=== PATIENT | female | born 1960 | race Caucasian/White ===

== ENCOUNTER 2018-02-06 04:07 | Outpatient (CLI) | payer BC, SELFPAY ==
[2018-02-06 12:02] LABS: Abs Immature Grans 0.01 k/cumm (0.0-0.09); Absolute Basophil Count 0.02 k/cumm (0.0-0.2); Absolute Eosinophil Count 0.35 k/cumm (0.0-0.7); Absolute Lymphocyte Count 1.41 k/cumm (1.2-3.4); Absolute Monocyte Count 0.47 k/cumm (0.11-0.7); Absolute Neutrophil Count 2.25 k/cumm (1.2-6.7); Basophils % 0.4; Eosinophils % 7.8; HCT 36.1 % (36.0-46.0); HGB 12.6 g/dL (12.0-15.5); Immature Grans % 0.2; Lymphocytes % 31.3; Mean Corp. HGB Concentration 34.9 g/dL (32.0-36.0); Mean Corpuscular Hemoglobin 31.9 pg (27.0-33.0); Mean Corpuscular Volume 91.4 fL (80-95); Mean Platelet Volume 8.8 fL (8.0-11.0); Monocytes % 10.4; Neutrophils % 49.9; Platelet Count 271 x1000/uL (130-400); RBC 3.95 m/cumm (4.00-5.20); RBC Distribution Width 11.9 % (11.7-14.6); White Blood Cell Count 4.51 k/cumm (4.4-10.8)
[2018-02-06 12:13] LABS: ALT 36 U/L (12-78); AST 33 U/L (15-37); Albumin 3.8 g/dL (3.4-5.0); Alkaline Phosphatase 56 U/L (46-116); Anion Gap 7.9 mmol/L (3-11); BUN 11 mg/dL (7-18); Bilirubin, Total 0.4 mg/dL (0.2-1.0); CO2 28.1 mmol/L (21.0-32.0); CREATININE 0.57 mg/dL (0.55-1.02); Calcium 8.6 mg/dL (8.5-10.1); Chloride 96 mmol/L (98-107); Glucose 92 mg/dL (70-100); Potassium 4.2 mmol/L (3.5-5.1); Sodium 132 mmol/L (136-145); Total Protein 7.5 g/dL (6.4-8.2)
[2018-02-08 10:54] LABS: Cancer Ag 15-3 97 U/mL (<30)
== END 2018-02-06 04:08 ==
PROVIDERS: PCP Internal Medicine; Visit Provider Internal Medicine Medical Oncology
DX: C50.412 Malignant neoplasm of upper-outer quadrant of left female breast (principal); Z17.0 Estrogen receptor positive status [ER+]
CPT/HCPCS: 36415; 80053; 86304; 85025; 86300

== ENCOUNTER 2018-03-06 09:42 | Outpatient (CLI) | payer BC, SELFPAY ==
[2018-03-06 10:08] LABS: Abs Immature Grans 0.01 k/cumm (0.0-0.09); Absolute Basophil Count 0.03 k/cumm (0.0-0.2); Absolute Eosinophil Count 0.17 k/cumm (0.0-0.7); Absolute Lymphocyte Count 1.38 k/cumm (1.2-3.4); Absolute Neutrophil Count 3.87 k/cumm (1.2-6.7); Basophils % 0.5; Eosinophils % 2.8; HCT 35.6 % (36.0-46.0); HGB 12.2 g/dL (12.0-15.5); Immature Grans % 0.2; Lymphocytes % 22.8; Mean Corp. HGB Concentration 34.3 g/dL (32.0-36.0); Mean Corpuscular Hemoglobin 31.2 pg (27.0-33.0); Mean Platelet Volume 8.7 fL (8.0-11.0); Monocytes % 9.9; Neutrophils % 63.8; Platelet Count 273 x1000/uL (130-400); RBC 3.91 m/cumm (4.00-5.20); RBC Distribution Width 11.9 % (11.7-14.6); White Blood Cell Count 6.06 k/cumm (4.4-10.8)
[2018-03-06 10:31] LABS: ALT 30 U/L (12-78); AST 24 U/L (15-37); Albumin 3.7 g/dL (3.4-5.0); Alkaline Phosphatase 60 U/L (46-116); Anion Gap 3.6 mmol/L (3-11); BUN 10 mg/dL (7-18); Bilirubin, Total 0.5 mg/dL (0.2-1.0); CO2 29.4 mmol/L (21.0-32.0); CREATININE 0.51 mg/dL (0.55-1.02); Calcium 9.5 mg/dL (8.5-10.1); Chloride 98 mmol/L (98-107); Glucose 74 mg/dL (70-100); Potassium 3.5 mmol/L (3.5-5.1); Sodium 131 mmol/L (136-145); Total Protein 7.6 g/dL (6.4-8.2)
[2018-03-08 14:26] LABS: Cancer Ag 15-3 104 U/mL (<30)
== END 2018-03-06 10:02 ==
PROVIDERS: PCP Internal Medicine; Visit Provider Internal Medicine Medical Oncology
DX: C79.51 Secondary malignant neoplasm of bone (principal); C50.412 Malignant neoplasm of upper-outer quadrant of left female breast; Z17.0 Estrogen receptor positive status [ER+]
CPT/HCPCS: 36415; 80053; 86304; 85025; 86300

== ENCOUNTER 2018-04-03 08:53 | Outpatient (CLI) | payer BC, SELFPAY ==
[2018-04-03 09:37] LABS: Abs Immature Grans 0.01 k/cumm (0.0-0.09); Absolute Basophil Count 0.01 k/cumm (0.0-0.2); Absolute Eosinophil Count 0.29 k/cumm (0.0-0.7); Absolute Monocyte Count 0.41 k/cumm (0.11-0.7); Absolute Neutrophil Count 2.08 k/cumm (1.2-6.7); Basophils % 0.2; Eosinophils % 7.1; HCT 35.9 % (36.0-46.0); HGB 12.3 g/dL (12.0-15.5); Immature Grans % 0.2; Lymphocytes % 31.7; Mean Corp. HGB Concentration 34.3 g/dL (32.0-36.0); Mean Corpuscular Hemoglobin 31.5 pg (27.0-33.0); Mean Corpuscular Volume 91.8 fL (80-95); Mean Platelet Volume 8.8 fL (8.0-11.0); Neutrophils % 50.8; Platelet Count 275 x1000/uL (130-400); RBC 3.91 m/cumm (4.00-5.20)
[2018-04-03 09:47] LABS: ALT 35 U/L (12-78); AST 31 U/L (15-37); Albumin 3.6 g/dL (3.4-5.0); Alkaline Phosphatase 57 U/L (46-116); Anion Gap 6.3 mmol/L (3-11); BUN 19 mg/dL (7-18); Bilirubin, Total 0.3 mg/dL (0.2-1.0); CO2 29.7 mmol/L (21.0-32.0); Calcium 9.2 mg/dL (8.5-10.1); Chloride 99 mmol/L (98-107); Glucose 69 mg/dL (70-100); Sodium 135 mmol/L (136-145); Total Protein 7.3 g/dL (6.4-8.2)
[2018-04-04 17:03] LABS: Cancer Ag 15-3 119 U/mL (<30)
== END 2018-04-03 09:13 ==
PROVIDERS: PCP Internal Medicine; Visit Provider Internal Medicine Medical Oncology
DX: C50.412 Malignant neoplasm of upper-outer quadrant of left female breast (principal); C79.51 Secondary malignant neoplasm of bone; Z17.0 Estrogen receptor positive status [ER+]
CPT/HCPCS: 36415; 80053; 86304; 85025; 86300

== ENCOUNTER 2018-05-08 10:18 | Outpatient (CLI) | payer BC, SELFPAY ==
[2018-05-08 12:20] LABS: Abs Immature Grans 0.01 k/cumm (0.0-0.09); Absolute Basophil Count 0.02 k/cumm (0.0-0.2); Absolute Eosinophil Count 0.12 k/cumm (0.0-0.7); Absolute Lymphocyte Count 1.12 k/cumm (1.2-3.4); Absolute Neutrophil Count 2.88 k/cumm (1.2-6.7); Basophils % 0.4; Eosinophils % 2.6; HCT 37.1 % (36.0-46.0); HGB 12.6 g/dL (12.0-15.5); Immature Grans % 0.2; Lymphocytes % 24.1; Mean Corpuscular Hemoglobin 30.9 pg (27.0-33.0); Mean Corpuscular Volume 90.9 fL (80-95); Mean Platelet Volume 8.9 fL (8.0-11.0); Monocytes % 10.8; Neutrophils % 61.9; Platelet Count 296 x1000/uL (130-400); RBC 4.08 m/cumm (4.00-5.20); RBC Distribution Width 11.9 % (11.7-14.6); White Blood Cell Count 4.65 k/cumm (4.4-10.8)
[2018-05-08 12:23] LABS: ALT 47 U/L (12-78); AST 41 U/L (15-37); Albumin 3.6 g/dL (3.4-5.0); Alkaline Phosphatase 57 U/L (46-116); Anion Gap 9.3 mmol/L (3-11); BUN 17 mg/dL (7-18); Bilirubin, Total 0.4 mg/dL (0.2-1.0); CO2 27.7 mmol/L (21.0-32.0); CREATININE 0.51 mg/dL (0.55-1.02); Calcium 9.1 mg/dL (8.5-10.1); Chloride 94 mmol/L (98-107); Glucose 98 mg/dL (70-100); Sodium 131 mmol/L (136-145); Total Protein 7.3 g/dL (6.4-8.2)
[2018-05-09 15:53] LABS: Cancer Ag 15-3 129 U/mL (<30)
== END 2018-05-08 10:38 ==
PROVIDERS: PCP Internal Medicine; Visit Provider Nurse Practitioner Adult Health
DX: C50.412 Malignant neoplasm of upper-outer quadrant of left female breast (principal); Z17.0 Estrogen receptor positive status [ER+]; C79.51 Secondary malignant neoplasm of bone
CPT/HCPCS: 36415; 80053; 86304; 85025; 86300

== ENCOUNTER 2018-06-05 11:58 | Outpatient (CLI) | payer BC, SELFPAY ==
[2018-06-05 12:43] LABS: Abs Immature Grans 0.01 k/cumm (0.0-0.09); Absolute Basophil Count 0.01 k/cumm (0.0-0.2); Absolute Lymphocyte Count 1.44 k/cumm (1.2-3.4); Absolute Monocyte Count 0.47 k/cumm (0.11-0.7); Absolute Neutrophil Count 3.43 k/cumm (1.2-6.7); Basophils % 0.2; Eosinophils % 3.6; HCT 38.3 % (36.0-46.0); Immature Grans % 0.2; Lymphocytes % 25.9; Mean Corp. HGB Concentration 33.9 g/dL (32.0-36.0); Mean Corpuscular Volume 91.4 fL (80-95); Mean Platelet Volume 9.2 fL (8.0-11.0); Monocytes % 8.5; Neutrophils % 61.6; Platelet Count 279 x1000/uL (130-400); RBC 4.19 m/cumm (4.00-5.20); White Blood Cell Count 5.56 k/cumm (4.4-10.8)
[2018-06-05 12:49] LABS: ALT 52 U/L (12-78); AST 44 U/L (15-37); Albumin 3.9 g/dL (3.4-5.0); Alkaline Phosphatase 65 U/L (46-116); Anion Gap 9.4 mmol/L (3-11); BUN 19 mg/dL (7-18); Bilirubin, Total 0.4 mg/dL (0.2-1.0); CO2 27.6 mmol/L (21.0-32.0); CREATININE 0.58 mg/dL (0.55-1.02); Calcium 9.3 mg/dL (8.5-10.1); Chloride 96 mmol/L (98-107); Glucose 107 mg/dL (70-100); Potassium 3.9 mmol/L (3.5-5.1); Sodium 133 mmol/L (136-145); Total Protein 7.7 g/dL (6.4-8.2)
[2018-06-06 15:31] LABS: Cancer Ag 15-3 166 U/mL (<30)
== END 2018-06-05 12:18 ==
PROVIDERS: PCP Internal Medicine; Visit Provider Nurse Practitioner Adult Health
DX: C50.412 Malignant neoplasm of upper-outer quadrant of left female breast (principal); Z17.0 Estrogen receptor positive status [ER+]; C79.51 Secondary malignant neoplasm of bone
CPT/HCPCS: 36415; 80053; 86304; 85025; 86300

== ENCOUNTER 2018-07-03 02:29 | Outpatient (CLI) | payer BC, SELFPAY ==
[2018-07-03 14:19] LABS: Abs Immature Grans 0.01 k/cumm (0.0-0.09); Absolute Basophil Count 0.02 k/cumm (0.0-0.2); Absolute Lymphocyte Count 1.39 k/cumm (1.2-3.4); Absolute Monocyte Count 0.46 k/cumm (0.11-0.7); Basophils % 0.3; Eosinophils % 4.9; HCT 36.4 % (36.0-46.0); HGB 12.7 g/dL (12.0-15.5); Immature Grans % 0.2; Lymphocytes % 22.5; Mean Corp. HGB Concentration 34.9 g/dL (32.0-36.0); Mean Corpuscular Hemoglobin 31.8 pg (27.0-33.0); Monocytes % 7.4; Neutrophils % 64.7; Platelet Count 282 x1000/uL (130-400); RBC Distribution Width 11.7 % (11.7-14.6); White Blood Cell Count 6.18 k/cumm (4.4-10.8)
[2018-07-03 14:32] LABS: ALT 55 U/L (12-78); AST 48 U/L (15-37); Albumin 3.7 g/dL (3.4-5.0); Alkaline Phosphatase 77 U/L (46-116); Anion Gap 7.9 mmol/L (3-11); BUN 19 mg/dL (7-18); Bilirubin, Total 0.4 mg/dL (0.2-1.0); CO2 30.1 mmol/L (21.0-32.0); CREATININE 0.66 mg/dL (0.55-1.02); Calcium 9.9 mg/dL (8.5-10.1); Chloride 94 mmol/L (98-107); Glucose 104 mg/dL (70-100); Potassium 4.1 mmol/L (3.5-5.1); Sodium 132 mmol/L (136-145); Total Protein 7.6 g/dL (6.4-8.2)
[2018-07-04 15:58] LABS: Cancer Ag 15-3 203 U/mL (<30)
== END 2018-07-03 02:49 ==
PROVIDERS: PCP Internal Medicine; Visit Provider Nurse Practitioner Adult Health
DX: C50.412 Malignant neoplasm of upper-outer quadrant of left female breast (principal); C79.51 Secondary malignant neoplasm of bone; Z17.0 Estrogen receptor positive status [ER+]
CPT/HCPCS: 36415; 80053; 86304; 85025; 86300

== ENCOUNTER 2018-07-31 07:32 | Outpatient (CLI) | payer BC, SELFPAY ==
[2018-07-31 09:54] LABS: Absolute Basophil Count 0.03 k/cumm (0.0-0.2); Absolute Eosinophil Count 0.36 k/cumm (0.0-0.7); Absolute Lymphocyte Count 1.43 k/cumm (1.2-3.4); Absolute Monocyte Count 0.48 k/cumm (0.11-0.7); Basophils % 0.6; Eosinophils % 6.7; HCT 37.3 % (36.0-46.0); HGB 12.8 g/dL (12.0-15.5); Lymphocytes % 26.5; Mean Corp. HGB Concentration 34.3 g/dL (32.0-36.0); Mean Corpuscular Hemoglobin 31.4 pg (27.0-33.0); Mean Corpuscular Volume 91.6 fL (80-95); Mean Platelet Volume 8.7 fL (8.0-11.0); Monocytes % 8.9; Neutrophils % 57.3; Platelet Count 251 x1000/uL (130-400); RBC 4.07 m/cumm (4.00-5.20); RBC Distribution Width 11.9 % (11.7-14.6)
[2018-07-31 10:07] LABS: ALT 55 U/L (12-78); AST 52 U/L (15-37); Albumin 3.6 g/dL (3.4-5.0); Alkaline Phosphatase 72 U/L (46-116); Anion Gap 6.2 mmol/L (3-11); BUN 17 mg/dL (7-18); Bilirubin, Total 0.5 mg/dL (0.2-1.0); CO2 32.8 mmol/L (21.0-32.0); CREATININE 0.56 mg/dL (0.55-1.02); Calcium 9.5 mg/dL (8.5-10.1); Chloride 96 mmol/L (98-107); Glucose 80 mg/dL (70-100); Potassium 4.1 mmol/L (3.5-5.1); Sodium 135 mmol/L (136-145); Total Protein 7.7 g/dL (6.4-8.2)
[2018-08-02 16:08] LABS: Cancer Ag 15-3 235 U/mL (<30)
== END 2018-07-31 07:52 ==
PROVIDERS: PCP Internal Medicine; Visit Provider Nurse Practitioner Adult Health
DX: C79.51 Secondary malignant neoplasm of bone (principal); C50.412 Malignant neoplasm of upper-outer quadrant of left female breast; Z17.0 Estrogen receptor positive status [ER+]
CPT/HCPCS: 36415; 80053; 86304; 85025; 86300

== ENCOUNTER 2018-08-28 02:12 | Outpatient (CLI) | payer BC, SELFPAY ==
[2018-08-28 14:45] LABS: Abs Immature Grans 0.01 k/cumm (0.0-0.09); Absolute Basophil Count 0.01 k/cumm (0.0-0.2); Absolute Eosinophil Count 0.19 k/cumm (0.0-0.7); Absolute Lymphocyte Count 1.39 k/cumm (1.2-3.4); Absolute Monocyte Count 0.62 k/cumm (0.11-0.7); Absolute Neutrophil Count 3.15 k/cumm (1.2-6.7); Basophils % 0.2; Eosinophils % 3.5; HCT 35.9 % (36.0-46.0); HGB 12.3 g/dL (12.0-15.5); Immature Grans % 0.2; Lymphocytes % 25.9; Mean Corp. HGB Concentration 34.3 g/dL (32.0-36.0); Mean Corpuscular Hemoglobin 31.2 pg (27.0-33.0); Mean Corpuscular Volume 91.1 fL (80-95); Mean Platelet Volume 8.8 fL (8.0-11.0); Monocytes % 11.5; Neutrophils % 58.7; Platelet Count 267 x1000/uL (130-400); RBC 3.94 m/cumm (4.00-5.20); RBC Distribution Width 11.8 % (11.7-14.6); White Blood Cell Count 5.37 k/cumm (4.4-10.8)
[2018-08-28 15:01] LABS: ALT 59 U/L (12-78); AST 65 U/L (15-37); Albumin 3.5 g/dL (3.4-5.0); Alkaline Phosphatase 80 U/L (46-116); Anion Gap 4.2 mmol/L (3-11); BUN 15 mg/dL (7-18); Bilirubin, Total 0.4 mg/dL (0.2-1.0); CO2 29.8 mmol/L (21.0-32.0); CREATININE 0.55 mg/dL (0.55-1.02); Calcium 9.5 mg/dL (8.5-10.1); Chloride 98 mmol/L (98-107); Glucose 99 mg/dL (70-100); Potassium 4.1 mmol/L (3.5-5.1); Sodium 132 mmol/L (136-145); Total Protein 7.4 g/dL (6.4-8.2)
[2018-08-29 16:52] LABS: Cancer Ag 15-3 290 U/mL (<30)
== END 2018-08-28 02:32 ==
PROVIDERS: PCP Internal Medicine; Visit Provider Nurse Practitioner Adult Health
DX: C50.412 Malignant neoplasm of upper-outer quadrant of left female breast (principal); Z17.0 Estrogen receptor positive status [ER+]; C79.51 Secondary malignant neoplasm of bone
CPT/HCPCS: 36415; 80053; 86304; 85025; 86300

== ENCOUNTER 2018-09-25 00:49 | Outpatient (CLI) | payer BC, SELFPAY ==
[2018-09-25 15:06] LABS: Abs Immature Grans 0.02 k/cumm (0.0-0.09); Absolute Basophil Count 0.03 k/cumm (0.0-0.2); Absolute Eosinophil Count 0.21 k/cumm (0.0-0.7); Absolute Lymphocyte Count 1.35 k/cumm (1.2-3.4); Absolute Monocyte Count 0.54 k/cumm (0.11-0.7); Absolute Neutrophil Count 3.66 k/cumm (1.2-6.7); Basophils % 0.5; Eosinophils % 3.6; HCT 36.9 % (36.0-46.0); HGB 12.5 g/dL (12.0-15.5); Immature Grans % 0.3; Lymphocytes % 23.2; Mean Corp. HGB Concentration 33.9 g/dL (32.0-36.0); Mean Corpuscular Hemoglobin 31.5 pg (27.0-33.0); Mean Corpuscular Volume 92.9 fL (80-95); Mean Platelet Volume 9.6 fL (8.0-11.0); Monocytes % 9.3; Neutrophils % 63.1; Platelet Count 256 x1000/uL (130-400); RBC 3.97 m/cumm (4.00-5.20); RBC Distribution Width 12.1 % (11.7-14.6); White Blood Cell Count 5.81 k/cumm (4.4-10.8)
[2018-09-25 15:39] LABS: ALT 71 U/L (12-78); AST 85 U/L (15-37); Albumin 3.6 g/dL (3.4-5.0); Alkaline Phosphatase 106 U/L (46-116); Anion Gap 8.9 mmol/L (3-11); BUN 18 mg/dL (7-18); Bilirubin, Total 0.5 mg/dL (0.2-1.0); CO2 29.1 mmol/L (21.0-32.0); CREATININE 0.61 mg/dL (0.55-1.02); Calcium 9.8 mg/dL (8.5-10.1); Chloride 96 mmol/L (98-107); Glucose 99 mg/dL (70-100); Sodium 134 mmol/L (136-145)
[2018-09-26 15:05] LABS: Cancer Ag 15-3 341 U/mL (<30)
== END 2018-09-25 01:09 ==
PROVIDERS: PCP Internal Medicine; Visit Provider Nurse Practitioner Adult Health
DX: C50.412 Malignant neoplasm of upper-outer quadrant of left female breast (principal); C79.51 Secondary malignant neoplasm of bone; Z17.0 Estrogen receptor positive status [ER+]
CPT/HCPCS: 36415; 80053; 86304; 85025; 86300

== ENCOUNTER 2019-11-30 02:12 | Outpatient (RCR) | payer BC, SELFPAY ==
[2019-11-30] MEDS: Normal Saline Flush 10 ML SYR IVP (09:35)
[2019-11-30] MEDS: Heparin 500 UNITS/5 ML SYRINGE IV (09:35)
[2019-11-30 09:46] LABS: Abs Immature Grans 0.01 k/cumm (0.0-0.09); Absolute Basophil Count 0.01 k/cumm (0.0-0.2); Absolute Eosinophil Count 0.11 k/cumm (0.0-0.7); Absolute Lymphocyte Count 1.11 k/cumm (1.2-3.4); Absolute Monocyte Count 0.57 k/cumm (0.11-0.7); Absolute Neutrophil Count 3.69 k/cumm (1.2-6.7); Basophils % 0.2; HCT 34.7 % (36.0-46.0); HGB 11.8 g/dL (12.0-15.5); Immature Grans % 0.2 %; Lymphocytes % 20.2; Mean Corpuscular Hemoglobin 32.2 pg (27.0-33.0); Mean Corpuscular Volume 94.6 fL (80-95); Mean Platelet Volume 9.5 fL (8.0-11.0); Monocytes % 10.4; Platelet Count 214 x1000/uL (130-400); RBC 3.67 m/cumm (4.00-5.20); RBC Distribution Width 12.2 % (11.7-14.6)
[2019-11-30 09:58] LABS: ALT 72 U/L (14-59); AST 73 U/L (15-37); Albumin 3.2 g/dL (3.4-5.0); Alkaline Phosphatase 172 U/L (46-116); Anion Gap 5.8 mmol/L (3-11); BUN 12 mg/dL (7-18); Bilirubin, Total 0.6 mg/dL (0.2-1.0); CO2 29.2 mmol/L (21.0-32.0); CREATININE 0.51 mg/dL (0.55-1.02); Calcium 9.4 mg/dL (8.5-10.1); Chloride 100 mmol/L (98-107); Glucose 85 mg/dL (74-106); Potassium 3.9 mmol/L (3.5-5.1); Sodium 135 mmol/L (136-145); Total Protein 6.9 g/dL (6.4-8.2)
== END 2019-12-29 23:59 | disposition home or self-care (01) ==
LOC: INF 02:12
PROVIDERS: PCP Internal Medicine; Visit Provider Internal Medicine Hematology & Oncology
DX: C50.412 Malignant neoplasm of upper-outer quadrant of left female breast (principal); Z17.0 Estrogen receptor positive status [ER+]; Z45.2 Encounter for adjustment and management of vascular access device
CPT/HCPCS: 36591; 80053; 85025

== ENCOUNTER 2020-02-02 01:22 | Outpatient (RCR) | payer BC, SELFPAY ==
[2020-02-02] MEDS: Normal Saline Flush 10 ML SYR IVP (09:30)
[2020-02-02] MEDS: Heparin 500 UNITS/5 ML SYRINGE IV (09:30)
[2020-02-02 09:57] LABS: Abs Immature Grans 0.02 10^3/uL (0.0-0.06); Absolute Basophil Count 0.04 10^3/uL (0.0-0.2); Absolute Eosinophil Count 0.15 10^3/uL (0.0-0.7); Absolute Lymphocyte Count 1.23 10^3/uL (1.2-3.4); Absolute Monocyte Count 0.56 10^3/uL (0.1-0.8); Basophils % 0.6; Eosinophils % 2.3; HCT 35.2 % (36.0-46.0); Immature Grans % 0.3; Lymphocytes % 19.2; MCH 32.3 pg (27.0-33.0); MCHC 34.1 % (32.0-36.0); MCV 94.9 fL (80-95); MPV 9.8 fL (8.0-11.0); Monocytes % 8.8; Neutrophils % 68.8; Platelet Count 200 10^3/uL (130-400); RBC 3.71 10^6/uL (3.93-5.22); RDW 11.9 % (11.7-14.6); RDW-SD 41.7 fL
[2020-02-02 10:11] LABS: ALT 44 U/L (14-59); AST 50 U/L (15-37); Albumin 3.1 g/dL (3.4-5.0); Alkaline Phosphatase 109 U/L (46-116); Anion Gap 6.9 mmol/L (3-11); BUN 13 mg/dL (7-18); Bilirubin, Total 0.6 mg/dL (0.2-1.0); CO2 29.1 mmol/L (21.0-32.0); CREATININE 0.49 mg/dL (0.55-1.02); Calcium 9.4 mg/dL (8.5-10.1); Chloride 100 mmol/L (98-107); Glucose 87 mg/dL (74-106); Potassium 3.9 mmol/L (3.5-5.1); Sodium 136 mmol/L (136-145)
[2020-02-03 17:08] LABS: Cancer Ag 15-3 52 U/mL (<30)
== END 2020-02-29 23:59 | disposition home or self-care (01) ==
LOC: INF 01:22
PROVIDERS: PCP Internal Medicine; Visit Provider Internal Medicine Hematology & Oncology
DX: C50.412 Malignant neoplasm of upper-outer quadrant of left female breast (principal); Z45.2 Encounter for adjustment and management of vascular access device; Z17.0 Estrogen receptor positive status [ER+]
CPT/HCPCS: 36591; 80053; 86304; 85025; 86300

== ENCOUNTER 2020-06-10 03:20 | Outpatient (RCR) | payer BC, SELFPAY ==
[2020-06-10] MEDS: Normal Saline Flush 10 ML SYR IVP (10:03)
[2020-06-10] MEDS: Heparin 500 UNITS/5 ML SYRINGE IV (10:04)
[2020-06-10 10:12] LABS: Abs Immature Grans 0.01 10^3/uL (0.0-0.06); Absolute Basophil Count 0.02 10^3/uL (0.0-0.2); Absolute Lymphocyte Count 1.05 10^3/uL (1.2-3.4); Absolute Monocyte Count 0.64 10^3/uL (0.1-0.8); Absolute Neutrophil Count 3.49 10^3/uL (1.2-6.7); Basophils % 0.4; Eosinophils % 1.9; HCT 32.7 % (36.0-46.0); HGB 11.2 g/dL (11.2-15.7); Immature Grans % 0.2; Lymphocytes % 19.8; MCH 33.1 pg (27.0-33.0); MCHC 34.3 % (32.0-36.0); MCV 96.7 fL (80-95); MPV 9.7 fL (8.0-11.0); Monocytes % 12.1; Neutrophils % 65.6; Nucleated RBC 0 %; Platelet Count 166 10^3/uL (130-400); RBC 3.38 10^6/uL (3.93-5.22); RDW 13.7 % (11.7-14.6); RDW-SD 44.4 fL; WBC 5.31 10^3/uL (4.4-10.8)
[2020-06-10 10:24] LABS: ALT 74 U/L (14-59); AST 90 U/L (15-37); Alkaline Phosphatase 204 U/L (46-116); Anion Gap 5.3 mmol/L (3-11); BUN 15 mg/dL (7-18); CO2 29.7 mmol/L (21.0-32.0); CREATININE 0.66 mg/dL (0.55-1.02); Calcium 8.9 mg/dL (8.5-10.1); Chloride 97 mmol/L (98-107); Glucose 93 mg/dL (74-106); Potassium 3.9 mmol/L (3.5-5.1); Sodium 132 mmol/L (136-145); Total Protein 6.6 g/dL (6.4-8.2)
[2020-06-13 11:09] LABS: Cancer Ag 15-3 160 U/mL (<30)
== END 2020-06-30 23:59 | disposition home or self-care (01) ==
LOC: INF 03:20
PROVIDERS: PCP Internal Medicine; Visit Provider Internal Medicine Hematology & Oncology
DX: C50.412 Malignant neoplasm of upper-outer quadrant of left female breast (principal); Z45.2 Encounter for adjustment and management of vascular access device; Z17.0 Estrogen receptor positive status [ER+]
CPT/HCPCS: 36591; 80053; 86304; 85025; 86300

== ENCOUNTER 2020-07-18 01:54 | Outpatient (RCR) | payer BC, SELFPAY ==
[2020-07-18 10:06] LABS: Abs Immature Grans 0.05 10^3/uL (0.0-0.06); Absolute Basophil Count 0.03 10^3/uL (0.0-0.2); Absolute Eosinophil Count 0.29 10^3/uL (0.0-0.7); Absolute Lymphocyte Count 1.27 10^3/uL (1.2-3.4); Absolute Monocyte Count 0.55 10^3/uL (0.1-0.8); Absolute Neutrophil Count 2.75 10^3/uL (1.2-6.7); Basophils % 0.6; Eosinophils % 5.9; HCT 30.4 % (36.0-46.0); HGB 10.5 g/dL (11.2-15.7); Lymphocytes % 25.7; MCH 35.1 pg (27.0-33.0); MCHC 34.5 % (32.0-36.0); MCV 101.7 fL (80-95); MPV 9.1 fL (8.0-11.0); Monocytes % 11.1; Neutrophils % 55.7; Nucleated RBC 0 %; Platelet Count 176 10^3/uL (130-400); RBC 2.99 10^6/uL (3.93-5.22); RDW 17.6 % (11.7-14.6); RDW-SD 63.7 fL; WBC 4.94 10^3/uL (4.4-10.8)
[2020-07-18] MEDS: Normal Saline Flush 10 ML SYR IVP (10:12)
[2020-07-18] MEDS: Heparin 500 UNITS/5 ML SYRINGE IV (10:12)
[2020-07-18 10:21] LABS: ALT 48 U/L (14-59); AST 56 U/L (15-37); Albumin 3.4 g/dL (3.4-5.0); Alkaline Phosphatase 141 U/L (46-116); Anion Gap 6.6 mmol/L (3-11); BUN 12 mg/dL (7-18); Bilirubin, Total 0.8 mg/dL (0.2-1.0); CO2 27.4 mmol/L (21.0-32.0); CREATININE 0.62 mg/dL (0.55-1.02); Calcium 9.4 mg/dL (8.5-10.1); Chloride 100 mmol/L (98-107); Glucose 97 mg/dL (74-106); Potassium 3.9 mmol/L (3.5-5.1); Sodium 134 mmol/L (136-145)
[2020-07-19 16:49] LABS: Cancer Ag 15-3 134 U/mL (<30)
== END 2020-07-31 23:59 | disposition home or self-care (01) ==
LOC: INF 01:54
PROVIDERS: PCP Internal Medicine; Visit Provider Internal Medicine Hematology & Oncology
DX: C50.412 Malignant neoplasm of upper-outer quadrant of left female breast (principal); Z45.2 Encounter for adjustment and management of vascular access device; Z17.0 Estrogen receptor positive status [ER+]; C79.51 Secondary malignant neoplasm of bone
CPT/HCPCS: 36591; 80053; 86304; 85025; 86300

== ENCOUNTER 2020-08-15 01:29 | Outpatient (RCR) | payer BC, SELFPAY ==
[2020-08-15] MEDS: Normal Saline Flush 10 ML SYR IVP (10:50)
[2020-08-15] MEDS: Heparin 500 UNITS/5 ML SYRINGE IV (10:50)
[2020-08-15 11:11] LABS: Abs Immature Grans 0.03 10^3/uL (0.0-0.06); Absolute Basophil Count 0.02 10^3/uL (0.0-0.2); Absolute Lymphocyte Count 1.57 10^3/uL (1.2-3.4); Absolute Monocyte Count 0.55 10^3/uL (0.1-0.8); Absolute Neutrophil Count 2.49 10^3/uL (1.2-6.7); Basophils % 0.4; HCT 30.5 % (36.0-46.0); HGB 10.7 g/dL (11.2-15.7); Immature Grans % 0.6; Lymphocytes % 31.7; MCH 36.4 pg (27.0-33.0); MCHC 35.1 % (32.0-36.0); MCV 103.7 fL (80-95); MPV 9.3 fL (8.0-11.0); Monocytes % 11.1; Neutrophils % 50.2; Nucleated RBC 0 %; Platelet Count 192 10^3/uL (130-400); RBC 2.94 10^6/uL (3.93-5.22); RDW 16.4 % (11.7-14.6); RDW-SD 61.8 fL; WBC 4.96 10^3/uL (4.4-10.8)
[2020-08-15 11:22] LABS: ALT 40 U/L (14-59); AST 45 U/L (15-37); Albumin 3.6 g/dL (3.4-5.0); Alkaline Phosphatase 93 U/L (46-116); BUN 12 mg/dL (7-18); Bilirubin, Total 0.7 mg/dL (0.2-1.0); CREATININE 0.5 mg/dL (0.55-1.02); Calcium 9.2 mg/dL (8.5-10.1); Chloride 99 mmol/L (98-107); Glucose 90 mg/dL (74-106); Potassium 4.2 mmol/L (3.5-5.1); Sodium 131 mmol/L (136-145); Total Protein 7.2 g/dL (6.4-8.2)
[2020-08-16 16:38] LABS: Cancer Ag 15-3 105 U/mL (<30)
== END 2020-08-28 23:59 | disposition home or self-care (01) ==
LOC: INF 01:29
PROVIDERS: PCP Internal Medicine; Visit Provider Internal Medicine Hematology & Oncology
DX: C50.412 Malignant neoplasm of upper-outer quadrant of left female breast (principal); Z17.0 Estrogen receptor positive status [ER+]; C79.51 Secondary malignant neoplasm of bone; Z45.2 Encounter for adjustment and management of vascular access device
CPT/HCPCS: 36591; 80053; 86304; 85025; 86300

== ENCOUNTER 2020-10-10 02:59 | Outpatient (RCR) | payer BC, SELFPAY ==
[2020-10-10 13:34] LABS: Absolute Basophil Count 0.02 10^3/uL (0.0-0.2); Absolute Eosinophil Count 0.19 10^3/uL (0.0-0.7); Absolute Lymphocyte Count 1.75 10^3/uL (1.2-3.4); Absolute Monocyte Count 0.42 10^3/uL (0.1-0.8); Absolute Neutrophil Count 2.68 10^3/uL (1.2-6.7); Basophils % 0.4; Eosinophils % 3.8; HGB 11.3 g/dL (11.2-15.7); Lymphocytes % 34.6; MCH 36.7 pg (27.0-33.0); MCHC 35.3 % (32.0-36.0); MCV 103.9 fL (80-95); MPV 9.3 fL (8.0-11.0); Monocytes % 8.3; Neutrophils % 52.9; Nucleated RBC 0 %; Platelet Count 150 10^3/uL (130-400); RBC 3.08 10^6/uL (3.93-5.22); RDW 13.9 % (11.7-14.6); WBC 5.06 10^3/uL (4.4-10.8)
[2020-10-10] MEDS: Heparin 500 UNITS/5 ML SYRINGE IV (13:34)
[2020-10-10] MEDS: Normal Saline Flush 10 ML SYR IVP (13:34)
[2020-10-10 13:49] LABS: ALT 34 U/L (14-59); AST 38 U/L (15-37); Albumin 3.8 g/dL (3.4-5.0); Alkaline Phosphatase 65 U/L (46-116); Anion Gap 7.6 mmol/L (3-11); BUN 17 mg/dL (7-18); Bilirubin, Total 0.9 mg/dL (0.2-1.0); CO2 27.4 mmol/L (21.0-32.0); CREATININE 0.5 mg/dL (0.55-1.02); Calcium 10.1 mg/dL (8.5-10.1); Chloride 101 mmol/L (98-107); Glucose 89 mg/dL (74-106); Potassium 4.3 mmol/L (3.5-5.1); Sodium 136 mmol/L (136-145); Total Protein 7.5 g/dL (6.4-8.2)
[2020-10-11 22:31] LABS: Cancer Ag 15-3 74 U/mL (<30)
== END 2020-10-28 23:59 | disposition home or self-care (01) ==
LOC: INF 02:59
PROVIDERS: PCP Internal Medicine; Visit Provider Internal Medicine Hematology & Oncology
DX: C50.412 Malignant neoplasm of upper-outer quadrant of left female breast (principal); Z17.0 Estrogen receptor positive status [ER+]; Z45.2 Encounter for adjustment and management of vascular access device
CPT/HCPCS: 36591; 80053; 86304; 85025; 86300

== ENCOUNTER 2020-11-07 02:56 | Outpatient (RCR) | payer BC, SELFPAY ==
[2020-11-07] MEDS: Normal Saline Flush 10 ML SYR IVP (09:32)
[2020-11-07] MEDS: Heparin 500 UNITS/5 ML SYRINGE IV (09:32)
[2020-11-07 09:33] LABS: Abs Immature Grans 0.01 10^3/uL (0.0-0.06); Absolute Basophil Count 0.01 10^3/uL (0.0-0.2); Absolute Eosinophil Count 0.08 10^3/uL (0.0-0.7); Absolute Lymphocyte Count 1.16 10^3/uL (1.2-3.4); Absolute Neutrophil Count 1.59 10^3/uL (1.2-6.7); Basophils % 0.3; Eosinophils % 2.5; HCT 31.1 % (36.0-46.0); Immature Grans % 0.3; Lymphocytes % 35.7; MCH 36.2 pg (27.0-33.0); MCHC 35.4 % (32.0-36.0); MCV 102.3 fL (80-95); MPV 9.4 fL (8.0-11.0); Monocytes % 12.3; Neutrophils % 48.9; Nucleated RBC 0 %; Platelet Count 155 10^3/uL (130-400); RBC 3.04 10^6/uL (3.93-5.22); RDW 14.9 % (11.7-14.6); RDW-SD 55.4 fL; WBC 3.25 10^3/uL (4.4-10.8)
[2020-11-07 09:48] LABS: ALT 30 U/L (14-59); AST 34 U/L (15-37); Albumin 3.6 g/dL (3.4-5.0); Alkaline Phosphatase 53 U/L (46-116); Anion Gap 6.7 mmol/L (3-11); BUN 17 mg/dL (7-18); Bilirubin, Total 0.8 mg/dL (0.2-1.0); CO2 28.3 mmol/L (21.0-32.0); CREATININE 0.5 mg/dL (0.55-1.02); Calcium 9.3 mg/dL (8.5-10.1); Chloride 103 mmol/L (98-107); Glucose 93 mg/dL (74-106); Potassium 4.1 mmol/L (3.5-5.1); Sodium 138 mmol/L (136-145); Total Protein 7.2 g/dL (6.4-8.2)
[2020-11-08 18:56] LABS: Cancer Ag 15-3 68 U/mL (<30)
== END 2020-11-28 23:59 | disposition home or self-care (01) ==
LOC: INF 02:56
PROVIDERS: PCP Internal Medicine; Visit Provider Internal Medicine Hematology & Oncology
DX: C50.412 Malignant neoplasm of upper-outer quadrant of left female breast (principal); Z17.0 Estrogen receptor positive status [ER+]; C79.51 Secondary malignant neoplasm of bone; Z45.2 Encounter for adjustment and management of vascular access device
CPT/HCPCS: 36591; 80053; 86304; 85025; 86300

== ENCOUNTER 2021-01-03 03:45 | Outpatient (RCR) | payer BC, SELFPAY ==
[2021-01-03] MEDS: Normal Saline Flush 10 ML SYR IVP (14:07)
[2021-01-03] MEDS: Heparin 500 UNITS/5 ML SYRINGE IV (14:08)
[2021-01-03 14:18] LABS: Abs Immature Grans 0.01 10^3/uL (0.0-0.06); Absolute Basophil Count 0.02 10^3/uL (0.0-0.2); Absolute Eosinophil Count 0.17 10^3/uL (0.0-0.7); Absolute Lymphocyte Count 1.23 10^3/uL (1.2-3.4); Absolute Monocyte Count 0.37 10^3/uL (0.1-0.8); Basophils % 0.5; Eosinophils % 4.1; HCT 31.6 % (36.0-46.0); HGB 10.9 g/dL (11.2-15.7); Immature Grans % 0.2; MCH 35.5 pg (27.0-33.0); MCHC 34.5 % (32.0-36.0); MCV 102.9 fL (80-95); MPV 9.5 fL (8.0-11.0); Neutrophils % 56.2; Nucleated RBC 0 %; Platelet Count 134 10^3/uL (130-400); RBC 3.07 10^6/uL (3.93-5.22); RDW 14.5 % (11.7-14.6); RDW-SD 54.3 fL
[2021-01-03 14:26] LABS: ALT 29 U/L (14-59); AST 35 U/L (15-37); Albumin 3.6 g/dL (3.4-5.0); Alkaline Phosphatase 46 U/L (46-116); BUN 20 mg/dL (7-18); Bilirubin, Total 0.7 mg/dL (0.2-1.0); CREATININE 0.7 mg/dL (0.55-1.02); Calcium 9.4 mg/dL (8.5-10.1); Chloride 102 mmol/L (98-107); Glucose 92 mg/dL (74-106); Potassium 4.1 mmol/L (3.5-5.1); Sodium 138 mmol/L (136-145); Total Protein 7.1 g/dL (6.4-8.2)
[2021-01-05 11:32] LABS: Cancer Ag 15-3 57 U/mL (<30)
== END 2021-01-28 23:59 | disposition home or self-care (01) ==
LOC: INF 03:45
PROVIDERS: PCP Internal Medicine; Visit Provider Internal Medicine Hematology & Oncology
DX: C50.412 Malignant neoplasm of upper-outer quadrant of left female breast (principal); Z17.0 Estrogen receptor positive status [ER+]; Z79.51 Long term (current) use of inhaled steroids; Z45.2 Encounter for adjustment and management of vascular access device
CPT/HCPCS: 36591; 80053; 86304; 85025; 86300

== ENCOUNTER 2021-01-30 01:53 | Outpatient (RCR) | payer BC, SELFPAY ==
[2021-01-30] MEDS: Normal Saline Flush 10 ML SYR IVP (11:12)
[2021-01-30 11:43] LABS: Abs Immature Grans 0.01 10^3/uL (0.0-0.06); Absolute Basophil Count 0.02 10^3/uL (0.0-0.2); Absolute Eosinophil Count 0.09 10^3/uL (0.0-0.7); Absolute Lymphocyte Count 1.18 10^3/uL (1.2-3.4); Absolute Monocyte Count 0.39 10^3/uL (0.1-0.8); Absolute Neutrophil Count 1.96 10^3/uL (1.2-6.7); Basophils % 0.5; Eosinophils % 2.5; HCT 33.3 % (36.0-46.0); HGB 11.4 g/dL (11.2-15.7); Immature Grans % 0.3; Lymphocytes % 32.3; MCH 34.7 pg (27.0-33.0); MCHC 34.2 % (32.0-36.0); MCV 101.2 fL (80-95); MPV 9.7 fL (8.0-11.0); Monocytes % 10.7; Neutrophils % 53.7; Nucleated RBC 0 %; Platelet Count 153 10^3/uL (130-400); RBC 3.29 10^6/uL (3.93-5.22); RDW 13.7 % (11.7-14.6); RDW-SD 51.2 fL; WBC 3.65 10^3/uL (4.4-10.8)
[2021-01-30 12:00] LABS: ALT 32 U/L (14-59); AST 38 U/L (15-37); Albumin 3.8 g/dL (3.4-5.0); Alkaline Phosphatase 48 U/L (46-116); Anion Gap 6.8 mmol/L (3-11); BUN 15 mg/dL (7-18); Bilirubin, Total 0.7 mg/dL (0.2-1.0); CO2 27.2 mmol/L (21.0-32.0); CREATININE 0.5 mg/dL (0.55-1.02); Calcium 9.4 mg/dL (8.5-10.1); Chloride 102 mmol/L (98-107); Glucose 94 mg/dL (74-106); Potassium 4.2 mmol/L (3.5-5.1); Sodium 136 mmol/L (136-145); Total Protein 7.5 g/dL (6.4-8.2)
[2021-01-31 17:16] LABS: Cancer Ag 15-3 64 U/mL (<30)
== END 2021-02-28 23:59 | disposition home or self-care (01) ==
LOC: INF 01:53
PROVIDERS: PCP Internal Medicine; Visit Provider Internal Medicine Hematology & Oncology
DX: C79.51 Secondary malignant neoplasm of bone (principal); C50.412 Malignant neoplasm of upper-outer quadrant of left female breast; Z17.0 Estrogen receptor positive status [ER+]; Z45.2 Encounter for adjustment and management of vascular access device
CPT/HCPCS: 36591; 80053; 86304; 85025; 86300

== ENCOUNTER 2021-03-27 02:40 | Outpatient (RCR) | payer BC, SELFPAY ==
[2021-03-27] MEDS: Normal Saline Flush 10 ML SYR IVP (13:54)
[2021-03-27] MEDS: Heparin 500 UNITS/5 ML SYRINGE IV (13:55)
[2021-03-27 14:05] LABS: Abs Immature Grans 0.01 10^3/uL (0.0-0.06); Absolute Basophil Count 0.01 10^3/uL (0.0-0.2); Absolute Eosinophil Count 0.08 10^3/uL (0.0-0.7); Absolute Lymphocyte Count 1.14 10^3/uL (1.2-3.4); Absolute Monocyte Count 0.48 10^3/uL (0.1-0.8); Absolute Neutrophil Count 2.54 10^3/uL (1.2-6.7); Basophils % 0.2; Eosinophils % 1.9; HCT 31.6 % (36.0-46.0); HGB 10.9 g/dL (11.2-15.7); Immature Grans % 0.2; Lymphocytes % 26.8; MCH 35.3 pg (27.0-33.0); MCHC 34.5 % (32.0-36.0); MCV 102.3 fL (80-95); Monocytes % 11.3; Neutrophils % 59.6; Nucleated RBC 0 %; Platelet Count 151 10^3/uL (130-400); RBC 3.09 10^6/uL (3.93-5.22); RDW 15.5 % (11.7-14.6); RDW-SD 56.6 fL; WBC 4.26 10^3/uL (4.4-10.8)
[2021-03-27 14:15] LABS: ALT 25 U/L (14-59); AST 35 U/L (15-37); Albumin 3.7 g/dL (3.4-5.0); Alkaline Phosphatase 60 U/L (46-116); Anion Gap 4.1 mmol/L (3-11); BUN 15 mg/dL (7-18); Bilirubin, Total 0.7 mg/dL (0.2-1.0); CO2 29.9 mmol/L (21.0-32.0); CREATININE 0.6 mg/dL (0.55-1.02); Calcium 9.9 mg/dL (8.5-10.1); Chloride 101 mmol/L (98-107); Glucose 118 mg/dL (74-106); Potassium 3.9 mmol/L (3.5-5.1); Sodium 135 mmol/L (136-145); Total Protein 7.4 g/dL (6.4-8.2)
[2021-03-29 20:15] LABS: Cancer Ag 15-3 89 U/mL (<30)
== END 2021-03-30 23:59 | disposition home or self-care (01) ==
LOC: INF 02:40
PROVIDERS: PCP Internal Medicine; Visit Provider Internal Medicine Hematology & Oncology
DX: C50.412 Malignant neoplasm of upper-outer quadrant of left female breast (principal); Z17.0 Estrogen receptor positive status [ER+]; Z45.2 Encounter for adjustment and management of vascular access device
CPT/HCPCS: 36591; 80053; 86304; 85025; 86300

== ENCOUNTER 2021-05-11 12:46 | Emergency (ER) | payer BC, SELFPAY ==
[2021-05-11] VITALS (11 sets, daily range): BP systolic 92–112; BP diastolic 51–62; PULSE 68–83; RESP 15–22; TEMP 36.4; O2SAT 94–99
--- NOTE | 2021-05-11 12:30 | RT.EKG_ITS ---
APPROVED REPORT Exam: Resting ECG Reason for Exam: chest tightness Patient Location: E HR:76 bpm ECG Measurements Heart Rate 76 AXIS MI 141 P 27 QRSd 88 QRS 13 QT 405 T 37 QTc 455 Conclusion Sinus rhythm...normal P axis, V-rate 60- 99. Sinus. No STEMI. I have reviewed and interpreted ECG and agree with software generated interpretation.
--- NOTE | 2021-05-11 12:39 | ED.GENADUL_ITS ---
Discharge Plan Disposition Patient Disposition: HOME Condition: Improving Discharge Details Clinical Impression: Chemotherapy adverse reaction, Metastatic breast cancer Primary Care Provider: Beryl Coronado ED Provider: Dyana Bueno Home Meds and New Rx's Prescriptions: New prednisone 20 mg tablet See Rx Instructions .ROUTE .COMPLEX Qty: 12 RF: 0 Continued capecitabine 500 mg tablet 500 mg PO BID RF: 0 Discharge Instructions Instructions: Paclitaxel (By injection) Additional Instructions: Your lab work, EKG and CT scan today are reassuring and did not note acute abnormal findings. Call Dr. Mcmahon's office tomorrow morning to discuss your chemotherapy treatment plan going forward. A prescription for steroids has been sent electronically to your pharmacy. You can discuss with Dr. Mcmahon tomorrow regarding his recommendation for steroids if you would rather wait before starting the prescription. Return immediately to the emergency department if you develop any worsening or new concerning symptoms. Discharge Data Discharge Physician: Dyana Bueno Medical Decision Making 61-year-old female with a history of metastatic breast cancer who presents from the cancer center after she developed chest tightness, diaphoresis, dyspnea, nausea and urge for bowel movement within minutes of starting a new chemotherapy infusion of paclitaxel. She received Benadryl and Decadron and her symptoms are improved. EKG notes a rate of 76, sinus, no STEMI and nondiagnostic. Daughter states that patient has a significant sensitivity to Benadryl and was given a large dose just prior to her unresponsive episode. Patient denies any current symptoms other than fatigue. She has no focal deficits. Suspect most likely medication reaction. Will obtain screening labs, continue IV fluids and discuss with [facility] oncology. Labs and imaging reviewed. White blood cell count 12. Hemoglobin 12.3. Troponin negative. CT chest notes findings consistent with patient's metastatic breast cancer but no PE or pneumonia. Repeat troponin negative. Repeat EKG unchanged. Per discussion with [facility] oncology, recommending a tryptase level which is a send out. Recommends a course of steroids. If patient's symptoms improve, can discharge to home. If patient remains symptomatic, consider admission overnight for 24-hour monitoring. Patient reassessed and she is asymptomatic and feels good and would like to go home. A prescription for steroids was sent electronically to her pharmacy but she would rather hold on starting this and talk to Dr. Mcmahon first. Advised to call his office tomorrow for follow-up and to discuss her chemotherapy treatment plan going forward as the paclitaxel will likely be discontinued. Usual and customary return precautions given prior to discharge. Medical Records Medical records reviewed: Yes I reviewed the patient's medical records. Imaging Data Radiologic Study: Radiologist's impression: CT CHEST PE CTA CLINICAL HISTORY: chest tightness, sob, r/o PE. TECHNIQUE: Imaging Protocol: Axial CT angiography was performed with multi- slice acquisition and multi-planar and/or 3D reconstructions. CONTRAST MATERIAL: Intravenous: Omnipaque 350 Contrast volume:100 ml COMPARISON: No exams were available for comparison FINDINGS: Pulmonary Arteries: No evidence of filling defect to suggest pulmonary emboli. Tracheobronchial tree: Patent where visualized. Mediastinum and Georgie: Left perihilar adenopathy.. Pulmonary parenchyma: Scarring medial left upper lobe. No masses. No infiltrate. Pleura: No effusion or pneumothorax. Heart: The heart is not dilated. No coronary artery calcifications are seen. Aorta: Thoracic aorta non-dilated. Upper abdomen: Liver not optimally evaluated due due to arterial phase of contrast. Multiple abnormal hypodensity suspicious for metastatic disease are seen in the liver. Bones: Multiple abnormal lytic and sclerotic lesions consistent with metastases seen in the spine, sternum and several bilateral ribs. Cortical breakthrough of the posterior T6 vertebral body. Cortical breakthrough of the posterior T 12 vertebral body. No definite cord impingement. Moderate T11 compression fracture with underlying mixed lytic sclerotic lesion. Soft tissues: Previous left mastectomy. Apparent right breast mass measuring 17 millimeters. The breast is not fully included on the images. Tubes, Catheters, and Lines: Port over right pectoral muscle. IMPRESSION: No evidence of pulmonary embolism. Prior history of breast cancer with left mastectomy. Question of right breast mass. Bony metastases and presumed liver metastases. The findings were called to Dyana Bueno of the emergency department. Lab Data Lab results reviewed: Yes I reviewed the patient's lab results. Labs: Laboratory Tests Range/Units 05/11/21 05/11/21 05/11/21 13:55 13:55 16:45 WBC (4.4-10.8) 10^3/uL 12.95 H D RBC (3.93-5.22) 10^6/uL 3.48 L Hgb (11.2-15.7) g/dL 12.3 Hct (36.0-46.0) % 35.4 L MCV (80-95) fL 101.7 H MCH (27.0-33.0) pg 35.3 H MCHC (32.0-36.0) % 34.7 RDW (11.7-14.6) % 15.1 H Plt Count (130-400) 10^3/uL 151 MPV (8.0-11.0) fL 9.2 Immature Gran % 1.3 Neutrophils % 93.3 Lymphocytes % 3.5 Monocytes % 1.5 Eosinophils % 0.2 Basophils % 0.2 Nucleated RBC % % 0 Absolute Neutrophils (1.2-6.7) 10^3/uL 12.08 H Absolute Lymphocytes (1.2-3.4) 10^3/uL 0.45 L Absolute Monocytes (0.1-0.8) 10^3/uL 0.19 Absolute Eosinophils (0.0-0.7) 10^3/uL 0.03 Absolute Basophils (0.0-0.2) 10^3/uL 0.03 Sodium (136-145) mmol/L 133 L Potassium (3.5-5.1) mmol/L 3.9 Chloride (98-107) mmol/L 102 Carbon Dioxide (21.0-32.0) mmol/L 22.3 Anion Gap (3-11) mmol/L 8.7 BUN (7-18) mg/dL 15 Creatinine (0.55-1.02) mg/dL 0.6 Estimated GFR/1.73 m2 (mL/min/1.73m2) >= 60.00 Glucose (74-106) mg/dL 129 H Calcium (8.5-10.1) mg/dL 8.2 L Magnesium (1.8-2.4) mg/dL 1.8 Total Bilirubin (0.2-1.0) mg/dL 1.1 H AST (15-37) U/L 31 ALT (14-59) U/L 16 Alkaline Phosphatase (46-116) U/L 62 Troponin I (<0.06) ng/mL < 0.05 < 0.05 Total Protein (6.4-8.2) g/dL 6.3 L Albumin (3.4-5.0) g/dL 3.1 L ECG Data Attestation: I personally reviewed and interpreted this ECG (s) as follows: Interpretation: #1 -- Rate of 76, sinus, no acute ST elevation or depression. MS 141. QRS 80. QTc 455. #2 -- Rate of 81, sinus, no acute ST elevation or depression. MS 177. QRS 89. QTc 465. #3 -- Rate of 72, sinus, no acute ST elevation or depression. MS 174. QRS 88. QTc 458. HPI General Mode of arrival: ambulatory . Date/Time Provider Initiated Documentation: 05/11/21 13:06 . Limitations to Documentation: no limitations . Information obtained by: patient . HPI Narrative: Patient is a 61-year-old female with a history of metastatic breast cancer followed by [facility] oncology who started a new chemotherapy medication paclitaxel today at the [facility] when she developed chest tightness, facial flushing, dizziness, ur ge for bowel movement, nausea within a few minutes of the infusion of paclitaxel today. She states the staff stopped the medication and she was given steroids and Benadryl and monitored. She states she became quite sleepy and had an unresponsive episode. Staff noted that she was hypotensive with systolic blood pressure in the 70s. Patient states her symptoms are significantly improved and she admits to only feelings of fatigue. She denies fever, headache, vomiting, abdominal pain or diarrhea. Related Data Home Medications Medication Instructions Recorded Confirmed capecitabine 500 mg PO BID 05/11/21 05/11/21 prednisone See Rx Instructions .ROUTE 05/11/21 .COMPLEX #12 tab Previous Rx's Medication Instructions Recorded prednisone See Rx Instructions .ROUTE 05/11/21 .COMPLEX #12 tab Allergies Allergy/AdvReac Type Severity Reaction Status Date / Time prochlorperazine Allergy Unverified 05/11/21 12:51 [From Compazine] Review of Systems All systems reviewed & are unremarkable except as noted in HPI and below Constitutional Constitutional: Reports as per HPI, Denies chills, Reports fatigue and Denies fever(s) Eyes Eyes: Denies blurry vision ENT Ears, Nose, Mouth, and Throat: Denies dizziness, Denies sore throat and Denies throat swelling Cardiovascular Cardiovascular: Reports chest pain, Reports diaphoresis and Denies dyspnea Respiratory Respiratory: Denies cough and Denies dyspnea Gastrointestinal Gastrointestinal: Denies abdominal pain, Denies diarrhea, Reports nausea and Denies vomiting Genitourinary Genitourinary: Denies hematuria and Denies dysuria Musculoskeletal Musculoskeletal: Denies back pain and Denies numbness Integumentary/Breasts Skin/Breast: Denies lesions and Denies rash Neurologic Neurologic: Denies dizziness, Denies localized weakness and Denies numbness Endocrine Endocrine: Reports fatigue Allergic/Immunologic Allergic/Immunologic: Denies throat swelling [facility] Medical History (Updated 05/11/21 @ 18:00 by Dyana Bueno DO) Metastatic breast cancer Surgical History (Updated 05/11/21 @ 13:56 by Dyana Bueno DO) H/O left mastectomy History of hysterectomy History of knee replacement Social History (System 05/10/21 @ 14:57 by Francine Pearl) Smoking/Tobacco Use Status: Never Smoking risk assessment performed?: Yes Alcohol Intake: never Drug use: Daily Substance use type: marijuana Details: Medical Marijuana used at night to help with sleep Do you feel safe at home: Yes Do you feel safe in your relationship?: Yes Exam Const General: cooperative and no acute distress HENMT Head: normal to inspection Face and sinus: normal facial exam Eyes General: appearance normal, both eyes and all related structures Pupils: PERRL EOM: EOM intact bilaterally Neck Neck: normal visual inspection and No submandibular swelling Lymphatic: no lymphadenopathy noted Chest Chest: normal inspection of the chest and no tenderness Resp Effort & Inspection: normal respiratory effort and able to speak in complete sentences Auscultation: clear to auscultation bilaterally Cardio Rate: regular rate Rhythm: regular rhythm GI Inspection: normal to inspection Palpation: soft, not firm, not rigid and nontender Auscultation: normal bowel sounds Back/Spine/Pelvis Thoracic/Lumbar Spine: thoracic and lumbar spine normal to inspection Pelvis: no pain with anterior-posterior compression Skin General skin exam: no rashes or lesions noted Neuro General: patient alert, patient awake, patient oriented x3, moves all extremities, no meningeal signs and no focal motor deficits Cranial Nerves: CN's II-XI intact bilaterally Cognition: normal cognition Speech: speech normal Motor: muscle tone normal throughout and strength 5/5 throughout Sensory Exam: no sensory deficits noted Extrem General: normal to inspection, full ROM, capillary refill normal, no calf tenderness bilaterally and no edema Psych Appearance: grossly normal Mental Status: mental status grossly normal Speech and Movement: speech and movement normal Affect: normal affect
--- OUTSIDE RECORDS SUMMARY | 2021-05-11 13:48 | XMS_ITS | Encounter Summary ---
:1960 Author Care Team Providers Name Role Phone Beryl Coronado MD Primary Care Provider [phone] Reason for Visit skin problem/rash Assessment and Plan 1. Impetigo I suspect that she caught her grandkids viral illness (COVID negative) , developed a blister, which then popped a nd she has developed a superficial bacterial infection. Will treat with topical mupir ocin. ? mupirocin 2 % topical oint ment 2. Malignant tumor of breast Recurrence 2014. Original ramiro gnancy 1995 Unfortunately there has been an increase in metastatic disease in her liver as well as josue mets. Her numbers have been increasing lately; Dr Mcmahon has recommended switching agents. She will have a follow up PET scan at th e end of month; it is very possible that her recent increase in aches and pains are secondary to the recent viral illness that she had, however, she understands it may be from cancer progression. Currently she is using medicinal THC thr ough the dispensary with good alleviation of pain at night. Greater than 50% of this 20 minute appoi ntment was spent in counseling. Discussion Note: None recorded.Patient educational handouts: No information available. Plan of Care Reminders Provider Appointments Follow up 07/05/2021 Beryl Parada 40 10:40AM MD [facility] Lab None ? ? recorded. Referral None ? ? recorded. Procedures None ? ? recorded. Surgeries None ? ? recorded. Imaging None ? ? recorded. Medications Name Start Date ? ? Calcium 600 + D(3) 600 mg (1,500 mg)-200 unit tablet ? Take 1 tablet every day by oral route. capecitabine ? 1500mg AM and 1000MG PM mupirocin 2 % topical ointment ? APPLY A SMALL AMOUNT TO THE AFFECTED AREA BY TOPICAL ROUTE 3 TIMES PER DAY Xgeva 120 mg/1.7 mL (70 mg/mL) subcutaneous solution ? Inject 1.7 mL every 3 months by subcutaneous route. Notes: 04/05/21 verbal review Medications Administered None recorded. Vitals Height Weight BMI Blood Pressure 5 ft 5.5 in 136 lbs 1.6 oz 22.3 kg/m2 138/82 mm[Hg] Results Lab Results None recorded. Allergies Code Code System Name Reaction Severity Onset 8704 RxNorm Prochlorperazine ? ? ? Problems Name Status Onset Date Source ? Malignant Tumor of Breast Active 02/06/2018 ? Metastasis to Bone of Unknown Primary Active 09/16/2019 ? Secondary Malignant Neoplastic Disease Active ? ? Psychophysiologic Insomnia Active ? ? Uterovaginal Prolapse Active ? ? Prolapse of Vaginal Vault after Hysterectomy Active ? ? Sleep Disorder Active ? ? Pleuritic Pain Active ? ? Personal History of Primary Malignant Active ? ? Neoplasm of Breast Procedures Date Name Performed by ? 03/27/2017 Removal of Ovary/tube(s) Information not available Notes: laparscopic bilate ral salpingo-oophorectomy, excision of cervical stump, uterosacral vag. vault suspension, cystocele repair 11/03/2013 Orthopedic Surgery Information not avai lable Notes: Left TKA 10/22/1995 Mastectomy Information not avai lable Notes: left with axillary dissection 07/01/1994 Hysterectomy Information not avai lable Notes: supracervical 07/01/1974 Knee Surgery Information not avai lable Vaccine List Vaccine Type COVID-19, mRNA, LNP-S, PF, 30 mcg/0.3 mL dose ([employer]) 09/07/2020?0.3 mL 09/28/2020 influenza, injectable, quadrivalent, pre servative free 07/09/2018?0.5 mL 05/11/2020 Tdap 07/01/2010 Social History Tobacco Smoking Status Former Smoker Notes: less th an 2 pack year history Are you blind or do you have N Notes: c orrective lenses difficulty seeing? What is your code status? 0 What was the date of your most 04/05/2021 recent tobacco screening? Do you use any illicit or N recreational drugs? What is your exercise level? Moderate Live alone or with others? with others Notes: spo use What is your level of alcohol None consumption? Which of your hands is dominant? Right Language Difficulties No Have you been to an area known to N be high risk for COVID-19? Are you deaf or do you have serious N difficulty hearing? Hard of hearing or deaf in one or N both ears? Do you or have you ever used any N other forms of tobacco or nicotine? What is your level of caffeine Occasional Notes: 1 coffee daily consumption? Have you recently traveled abroad? N What is your occupation? teacher Family History Relation Problem Onset Age of Age Notes Father Alzheimer's disease (No N/A (No Note s) Information) Mother Polymyalgia rheumatica (No N/A (No N otes) Information) Brother Heart murmur (No N/A (No Notes) Information) Unspecified Relation Arthritis (No N/A family members Information) in general Unspecified Relation Cerebrovascular disease (No N/A family members Information) in general Functional Status No Impairment. Past Encounters 04/05/2021 Impetigo; Malignant Tumor of Breast Beryl Coronado MD: [address] [place] [phone], Ph. History of Present Illness ? Skin Lesion Reported By: Patient HPI: Location: ; cold sore, has n ever had one before Note: 04/05/2021 [employer]/ oncologist consult 03/31/2021<div>metastatic breast cancer, bone, and liver. Responding to Capecitabine. Markers have been increasing over past 8 wks. Labs have been or dered. will complete cycle capecitabine 04/09 1500 mg in am 1000 mg in pm.</div><div>
</div><div>Pt reports exhaustion, pain in left cheekbone that is keeping her up atnight, also having problems with balance.</div><div>
</div><div>Shecared for her grandkids who had had a virus; she subsequently felt ill; endorses muscle and body aches. Developed a lesion on the left side of her lip</div><div>
</div><div>She knows that this oral agent she has been taking is no longer working; she is will have a repeat PET scan toard the end of this month but anticipates that she has had increase in josue metastases</div> Review of Systems ? Notes: <p>Gen: No fevers, chills, s weats. Weight stable.</p><p>HEENT: Denies vision changes. Denies hearing herrera ges. Denies dysphagia. Denies odynophagia. </p><p>CV: Denies chest pain . Denies chest pressure. Denies heart palpitations.</p><p>RESP: De nies cough. Denies shortness of breath. Denies wheezing. </p><p>GI: Denies abdominal pain. Denies diarrhea. Denies constipation. Denies melena. Denies hematochezia. </p><p>: Denies urinary incontinence. Denies dysuria . </p><p>MSK: endorses joint pain. </p><p>Skin: Denies rash. endorses skin l esion</p><p>Neuro: Denies headaches. Denies imbalance. Denies numbness a nd tingling in extremities.
</p><p>Psych: Denies depression. Denies an xiety. </p> Physical Exam ? Notes: <p>Gen: Well appearing. No a pparent distress. </p><p>HEENT: EOMI, PERRLA. </p><p>CV: RRR, no murmur s, rubs, gallops.
</p><p>RESP: clear to auscultation bilaterally. no wheezes, rubs, rhonchi</p><p>ABD: nondistended</p><p>EXT: no p eripheral edema</p><p>SKIN: impetigo left side of lip</p><p>Neuro: CN II- XII grossly intact. Alert and oriented x 3</p><p>Psych: Appropriate a ffect and mood. </p>
[2021-05-11 14:04] LABS: Abs Immature Grans 0.17 10^3/uL (0.0-0.06); Absolute Lymphocyte Count 0.45 10^3/uL (1.2-3.4); Absolute Monocyte Count 0.19 10^3/uL (0.1-0.8); Basophils % 0.2; Eosinophils % 0.2; HCT 35.4 % (36.0-46.0); HGB 12.3 g/dL (11.2-15.7); Immature Grans % 1.3; Lymphocytes % 3.5; MCH 35.3 pg (27.0-33.0); MCHC 34.7 % (32.0-36.0); MCV 101.7 fL (80-95); MPV 9.2 fL (8.0-11.0); Monocytes % 1.5; Neutrophils % 93.3; Nucleated RBC 0 %; Platelet Count 151 10^3/uL (130-400); RBC 3.48 10^6/uL (3.93-5.22); RDW 15.1 % (11.7-14.6); RDW-SD 55.9 fL; WBC 12.95 10^3/uL (4.4-10.8)
[2021-05-11 14:13] LABS: Absolute Basophil Count 0.03 10^3/uL (0.0-0.2); Absolute Eosinophil Count 0.03 10^3/uL (0.0-0.7); Absolute Neutrophil Count 12.08 10^3/uL (1.2-6.7)
[2021-05-11 14:22] LABS: Albumin 3.1 g/dL (3.4-5.0); Alkaline Phosphatase 62 U/L (46-116); BUN 15 mg/dL (7-18); Bilirubin, Total 1.1 mg/dL (0.2-1.0); CREATININE 0.6 mg/dL (0.55-1.02); Calcium 8.2 mg/dL (8.5-10.1); Glucose 129 mg/dL (74-106); Potassium 3.9 mmol/L (3.5-5.1); Sodium 133 mmol/L (136-145); Total Protein 6.3 g/dL (6.4-8.2)
[2021-05-11 14:23] LABS: ALT 16 U/L (14-59); AST 31 U/L (15-37); Anion Gap 8.7 mmol/L (3-11); CO2 22.3 mmol/L (21.0-32.0); Chloride 102 mmol/L (98-107); Magnesium 1.8 mg/dL (1.8-2.4); Troponin I < 0.05 ng/mL (<0.06)
--- NOTE | 2021-05-11 14:30 | DI.CT_ITS ---
Exam(s) CT CHEST PE CTA EXAM: CT CHEST PE CTA CLINICAL HISTORY: chest tightness, sob, r/o PE. TECHNIQUE: Imaging Protocol: Axial CT angiography was performed with multi-slice acquisition and mu lti-planar and/or 3D reconstructions. CONTRAST MATERIAL: Intravenous: Omnipaque 350 Contrast volume:100 ml COMPARISON: No exams were available for comparison FINDINGS: Pulmonary Arteries: No evidence of filling defect to suggest pulmonary emboli. Tracheobronchial tree: Patent where visualized. Mediastinum and Georgie: Left perihilar adenopathy.. Pulmonary parenchyma: Scarring medial left upper lobe. No masses. No infiltrate. Pleura: No effusion or pneumothorax. Heart: The heart is not dilated. No coronary artery calcifications are seen. Aorta: Thoracic aorta non-dilated. Upper abdomen: Liver not optimally evaluated due due to arterial phase of contrast. Multiple abnorm al hypodensity suspicious for metastatic disease are seen in the liver. Bones: Multiple abnormal lytic and sclerotic lesions consistent with metastases seen in the spine, st ernum and several bilateral ribs. Cortical breakthrough of the posterior T6 vertebral body. Cortica l breakthrough of the posterior T 12 vertebral body. No definite cord impingement. Moderate T11 com pression fracture with underlying mixed lytic sclerotic lesion. Soft tissues: Previous left mastectomy. Apparent right breast mass measuring 17 millimeters. The br east is not fully included on the images. Tubes, Catheters, and Lines: Port over right pectoral muscle. IMPRESSION: No evidence of pulmonary embolism. Prior history of breast cancer with left mastectomy. Question of right breast mass. Bony metastases and presumed liver metastases. The findings were called to Dyana Bueno of the emergency department. RADIATION DOSE DELIVERED: 270.8mGy.cm Total DLP DATA REPOSITORY: All CT scans at this facility are submitted to the National Radiology Data Registry (NRDR) Dose Index Registry (DIR) with the [employer] (A[employer]). RADIATION OPTIMIZATION: All CT scans at this facility use at least one of these dose optimization te chniques: automated exposure control; mA and/or kV adjustment per patient size (includes targeted exa ms where dose is matched to clinical indication); or iterative reconstruction.
--- NOTE | 2021-05-11 14:30 | RT.EKG_ITS ---
APPROVED REPORT Exam: Resting ECG Reason for Exam: chest tightness Patient Location: E HR:81 bpm ECG Measurements Heart Rate 81 AXIS VT 177 P 41 QRSd 89 QRS 16 QT 401 T 50 QTc 465 Conclusion Sinus rhythm...normal P axis, V-rate 60- 99. Sinus. No STEMI. I have reviewed and interpreted ECG and agree with software generated interpretation.
[2021-05-11] MEDS: Normal Saline 500 ML IV (15:10)
--- NOTE | 2021-05-11 17:00 | RT.EKG_ITS ---
APPROVED REPORT Exam: Resting ECG Reason for Exam: chest tightness Patient Location: E HR:72 bpm ECG Measurements Heart Rate 72 AXIS MS 174 P 112 QRSd 88 QRS 169 QT 419 T 135 QTc 458 Conclusion Right and left arm electrode reversal, interpretation assumes no reversal Sinus rhythm...normal P axis, V-rate 60- 99 Consider left ventricular hypertrophy...(S V1+R V5/V6) >3.25mV Probable lateral infarct, age indeterminate...Q >35mS, T neg, V5-V6 I aVL. Sinus. No STEMI. Potential R and L arm lead reversal changing axis. I have reviewed and interpreted ECG and agree with software generated interpretation.
[2021-05-11 17:23] LABS: Troponin I < 0.05 ng/mL (<0.06)
== END 2021-05-11 18:48 | disposition home or self-care (01) ==
PROVIDERS: Emergency Provider Physician Assistant; PCP Internal Medicine
DX: R07.89 Other chest pain (principal); R06.00 Dyspnea, unspecified; R61 Generalized hyperhidrosis; R55 Syncope and collapse; T45.1X5A Adverse effect of antineoplastic and immunosuppressive drugs, initial encounter; C50.919 Malignant neoplasm of unspecified site of unspecified female breast
CPT/HCPCS: 71275; 80053; 83520; 93005; 96360; 99285; 83735; 84484; 85025; 93010; 99284

== ENCOUNTER 2021-05-26 12:15 | Outpatient (RCR) | payer BC, SELFPAY ==
[2021-05-11] MEDS: Normal Saline Flush 10 ML SYR IVP (08:02)
[2021-05-11 08:30] LABS: Abs Immature Grans 0.01 10^3/uL (0.0-0.06); Absolute Basophil Count 0.03 10^3/uL (0.0-0.2); Absolute Eosinophil Count 0.11 10^3/uL (0.0-0.7); Absolute Monocyte Count 0.59 10^3/uL (0.1-0.8); Absolute Neutrophil Count 2.76 10^3/uL (1.2-6.7); Basophils % 0.6; Eosinophils % 2.3; HCT 31.2 % (36.0-46.0); HGB 10.6 g/dL (11.2-15.7); Immature Grans % 0.2; Lymphocytes % 27.1; MCH 34.9 pg (27.0-33.0); MCV 102.6 fL (80-95); MPV 9.6 fL (8.0-11.0); Monocytes % 12.3; Neutrophils % 57.5; Nucleated RBC 0 %; Platelet Count 145 10^3/uL (130-400); RBC 3.04 10^6/uL (3.93-5.22); RDW 15.1 % (11.7-14.6); RDW-SD 56.8 fL
[2021-05-11 08:53] LABS: Albumin 3.6 g/dL (3.4-5.0); Alkaline Phosphatase 67 U/L (46-116); BUN 14 mg/dL (7-18); Bilirubin, Total 0.9 mg/dL (0.2-1.0); CREATININE 0.7 mg/dL (0.55-1.02); Calcium 9.2 mg/dL (8.5-10.1); Glucose 81 mg/dL (74-106); Potassium 4.2 mmol/L (3.5-5.1); Sodium 135 mmol/L (136-145); Total Protein 7.5 g/dL (6.4-8.2)
[2021-05-11 08:54] LABS: ALT 19 U/L (14-59); AST 35 U/L (15-37); Anion Gap 7.5 mmol/L (3-11); CO2 27.5 mmol/L (21.0-32.0); Chloride 100 mmol/L (98-107)
[2021-05-12 15:44] LABS: Cancer Ag 15-3 107 U/mL (<30)
[2021-05-18] MEDS: Normal Saline Flush 10 ML SYR IVP (08:21)
[2021-05-18 08:51] LABS: Abs Immature Grans 0.07 10^3/uL (0.0-0.06); Absolute Basophil Count 0.01 10^3/uL (0.0-0.2); Absolute Eosinophil Count 0.03 10^3/uL (0.0-0.7); Absolute Lymphocyte Count 1.73 10^3/uL (1.2-3.4); Absolute Neutrophil Count 5.61 10^3/uL (1.2-6.7); Basophils % 0.1; Eosinophils % 0.3; HCT 33.5 % (36.0-46.0); HGB 11.3 g/dL (11.2-15.7); Immature Grans % 0.8; MCH 34.3 pg (27.0-33.0); MCHC 33.7 % (32.0-36.0); MCV 101.8 fL (80-95); MPV 9.1 fL (8.0-11.0); Monocytes % 13.9; Neutrophils % 64.9; Nucleated RBC 0 %; Platelet Count 175 10^3/uL (130-400); RBC 3.29 10^6/uL (3.93-5.22); RDW 14.6 % (11.7-14.6); RDW-SD 54.9 fL; WBC 8.65 10^3/uL (4.4-10.8)
[2021-05-18 09:04] LABS: ALT 23 U/L (14-59); AST 39 U/L (15-37); Albumin 3.4 g/dL (3.4-5.0); Alkaline Phosphatase 72 U/L (46-116); Anion Gap 7.6 mmol/L (3-11); BUN 18 mg/dL (7-18); Bilirubin, Total 0.9 mg/dL (0.2-1.0); CO2 27.4 mmol/L (21.0-32.0); CREATININE 0.7 mg/dL (0.55-1.02); Calcium 8.9 mg/dL (8.5-10.1); Chloride 100 mmol/L (98-107); Glucose 101 mg/dL (74-106); Potassium 3.5 mmol/L (3.5-5.1); Sodium 135 mmol/L (136-145); Total Protein 7.3 g/dL (6.4-8.2)
[2021-05-18 13:03] LABS: Magnesium 2.3 mg/dL (1.8-2.4)
[2021-05-19 14:38] LABS: Cancer Ag 15-3 110 U/mL (<30)
[2021-05-26] MEDS: Normal Saline Flush 10 ML SYR IVP (13:13)
[2021-05-26 13:24] LABS: HCT 30.7 % (36.0-46.0); HGB 10.5 g/dL (11.2-15.7); MCH 34.3 pg (27.0-33.0); MCHC 34.2 % (32.0-36.0); MCV 100.3 fL (80-95); MPV 9.3 fL (8.0-11.0); Nucleated RBC 0 %; Platelet Count 205 10^3/uL (130-400); RBC 3.06 10^6/uL (3.93-5.22); RDW 14.2 % (11.7-14.6); RDW-SD 51.9 fL
[2021-05-26 13:36] LABS: WBC 1.85 10^3/uL (4.4-10.8)
[2021-05-26 13:39] LABS: ALT 23 U/L (14-59); AST 33 U/L (15-37); Albumin 3.4 g/dL (3.4-5.0); Alkaline Phosphatase 72 U/L (46-116); Anion Gap 9.5 mmol/L (3-11); BUN 12 mg/dL (7-18); Bilirubin, Total 0.5 mg/dL (0.2-1.0); CO2 26.5 mmol/L (21.0-32.0); CREATININE 0.5 mg/dL (0.55-1.02); Calcium 9.2 mg/dL (8.5-10.1); Chloride 100 mmol/L (98-107); Glucose 96 mg/dL (74-106); Magnesium 1.9 mg/dL (1.8-2.4); Potassium 3.6 mmol/L (3.5-5.1); Sodium 136 mmol/L (136-145); Total Protein 7.2 g/dL (6.4-8.2)
[2021-05-26 13:43] LABS: Absolute Basophil Count 0.04 10^3/uL (0.0-0.2); Absolute Lymphocyte Count 1.07 10^3/uL (1.2-3.4); Absolute Monocyte Count 0.17 10^3/uL (0.1-0.8); Absolute Neutrophil Count 0.57 10^3/uL (1.2-6.7); Bands % 2
[2021-05-26 13:44] LABS: Diff Comment Manual Differential; RBC Morphology Normal
== END 2021-05-30 23:59 | disposition home or self-care (01) ==
LOC: INF 12:15
PROVIDERS: PCP Internal Medicine; Visit Provider Internal Medicine Hematology & Oncology
DX: C50.412 Malignant neoplasm of upper-outer quadrant of left female breast (principal); Z45.2 Encounter for adjustment and management of vascular access device; Z17.0 Estrogen receptor positive status [ER+]
CPT/HCPCS: 36591; 80053; 86304; 83735; 85025; 86300

== ENCOUNTER 2021-06-29 02:47 | Outpatient (RCR) | payer BC, SELFPAY ==
[2021-06-01] MEDS: Normal Saline Flush 10 ML SYR IVP (12:19)
[2021-06-01 12:38] LABS: Abs Immature Grans 0.02 10^3/uL (0.0-0.06); Absolute Basophil Count 0.01 10^3/uL (0.0-0.2); Absolute Eosinophil Count 0.01 10^3/uL (0.0-0.7); Absolute Lymphocyte Count 1.21 10^3/uL (1.2-3.4); Absolute Monocyte Count 0.54 10^3/uL (0.1-0.8); Absolute Neutrophil Count 0.55 10^3/uL (1.2-6.7); Basophils % 0.4; Eosinophils % 0.4; HCT 32.6 % (36.0-46.0); Immature Grans % 0.9; Lymphocytes % 51.7; MCHC 33.7 % (32.0-36.0); MCV 100.6 fL (80-95); MPV 8.9 fL (8.0-11.0); Monocytes % 23.1; Neutrophils % 23.5; Nucleated RBC 0 %; Platelet Count 223 10^3/uL (130-400); RBC 3.24 10^6/uL (3.93-5.22); RDW 13.7 % (11.7-14.6); RDW-SD 50.6 fL; WBC 2.34 10^3/uL (4.4-10.8)
[2021-06-01 12:46] LABS: Diff Comment Diff Reviewed; RBC Morphology Normal
[2021-06-01 12:55] LABS: ALT 22 U/L (14-59); AST 27 U/L (15-37); Albumin 3.6 g/dL (3.4-5.0); Alkaline Phosphatase 61 U/L (46-116); Anion Gap 8.8 mmol/L (3-11); BUN 13 mg/dL (7-18); Bilirubin, Total 0.5 mg/dL (0.2-1.0); CO2 26.2 mmol/L (21.0-32.0); CREATININE 0.5 mg/dL (0.55-1.02); Calcium 9.2 mg/dL (8.5-10.1); Chloride 102 mmol/L (98-107); Glucose 89 mg/dL (74-106); Magnesium 2.1 mg/dL (1.8-2.4); Sodium 137 mmol/L (136-145); Total Protein 7.3 g/dL (6.4-8.2)
[2021-06-08] MEDS: Normal Saline Flush 10 ML SYR IVP (12:36)
[2021-06-08 12:43] LABS: Abs Immature Grans 0.03 10^3/uL (0.0-0.06); Absolute Basophil Count 0.03 10^3/uL (0.0-0.2); Absolute Eosinophil Count 0.02 10^3/uL (0.0-0.7); Absolute Lymphocyte Count 1.54 10^3/uL (1.2-3.4); Absolute Monocyte Count 0.52 10^3/uL (0.1-0.8); Absolute Neutrophil Count 3.03 10^3/uL (1.2-6.7); Basophils % 0.6; Eosinophils % 0.4; HCT 35.1 % (36.0-46.0); HGB 11.8 g/dL (11.2-15.7); Immature Grans % 0.6; Lymphocytes % 29.8; MCH 33.4 pg (27.0-33.0); MCHC 33.6 % (32.0-36.0); MCV 99.4 fL (80-95); MPV 9.2 fL (8.0-11.0); Monocytes % 10.1; Neutrophils % 58.5; Nucleated RBC 0 %; Platelet Count 226 10^3/uL (130-400); RBC 3.53 10^6/uL (3.93-5.22); RDW 13.3 % (11.7-14.6); RDW-SD 48.6 fL; WBC 5.17 10^3/uL (4.4-10.8)
[2021-06-08 12:50] LABS: ALT 22 U/L (14-59); AST 29 U/L (15-37); Albumin 3.8 g/dL (3.4-5.0); Alkaline Phosphatase 60 U/L (46-116); Anion Gap 6.4 mmol/L (3-11); BUN 17 mg/dL (7-18); Bilirubin, Total 0.5 mg/dL (0.2-1.0); CO2 29.6 mmol/L (21.0-32.0); CREATININE 0.5 mg/dL (0.55-1.02); Calcium 9.5 mg/dL (8.5-10.1); Chloride 98 mmol/L (98-107); Glucose 92 mg/dL (74-106); Magnesium 1.9 mg/dL (1.8-2.4); Sodium 134 mmol/L (136-145); Total Protein 7.6 g/dL (6.4-8.2)
[2021-06-09 17:42] LABS: Cancer Ag 15-3 84 U/mL (<30)
[2021-06-15] MEDS: Normal Saline Flush 10 ML SYR IVP (07:28)
[2021-06-15 07:45] LABS: Abs Immature Grans 0.07 10^3/uL (0.0-0.06); Absolute Basophil Count 0.06 10^3/uL (0.0-0.2); Absolute Eosinophil Count 0.02 10^3/uL (0.0-0.7); Absolute Lymphocyte Count 1.01 10^3/uL (1.2-3.4); Absolute Monocyte Count 0.15 10^3/uL (0.1-0.8); Absolute Neutrophil Count 1.31 10^3/uL (1.2-6.7); Basophils % 2.3; Eosinophils % 0.8; HCT 32.6 % (36.0-46.0); Immature Grans % 2.7; Lymphocytes % 38.5; MCH 32.5 pg (27.0-33.0); MCHC 33.7 % (32.0-36.0); MCV 96.4 fL (80-95); MPV 9.8 fL (8.0-11.0); Monocytes % 5.7; Nucleated RBC 0 %; Platelet Count 152 10^3/uL (130-400); RBC 3.38 10^6/uL (3.93-5.22); RDW 13.1 % (11.7-14.6); RDW-SD 46.2 fL; WBC 2.62 10^3/uL (4.4-10.8)
[2021-06-15 07:59] LABS: ALT 26 U/L (14-59); AST 32 U/L (15-37); Albumin 3.5 g/dL (3.4-5.0); Alkaline Phosphatase 59 U/L (46-116); Anion Gap 6.8 mmol/L (3-11); BUN 13 mg/dL (7-18); Bilirubin, Total 0.5 mg/dL (0.2-1.0); CO2 28.2 mmol/L (21.0-32.0); CREATININE 0.5 mg/dL (0.55-1.02); Calcium 8.9 mg/dL (8.5-10.1); Chloride 103 mmol/L (98-107); Glucose 106 mg/dL (74-106); Magnesium 2.2 mg/dL (1.8-2.4); Potassium 3.6 mmol/L (3.5-5.1); Sodium 138 mmol/L (136-145)
[2021-06-16 11:17] LABS: Cancer Ag 15-3 69 U/mL (<30)
[2021-06-29] MEDS: Normal Saline Flush 10 ML SYR IVP (09:03)
[2021-06-29 09:21] LABS: Abs Immature Grans 0.03 10^3/uL (0.0-0.06); Absolute Basophil Count 0.03 10^3/uL (0.0-0.2); Absolute Eosinophil Count 0.02 10^3/uL (0.0-0.7); Absolute Lymphocyte Count 1.23 10^3/uL (1.2-3.4); Absolute Monocyte Count 0.65 10^3/uL (0.1-0.8); Absolute Neutrophil Count 1.56 10^3/uL (1.2-6.7); Basophils % 0.9; Eosinophils % 0.6; HGB 11.2 g/dL (11.2-15.7); Immature Grans % 0.9; Lymphocytes % 34.9; MCH 33.1 pg (27.0-33.0); MCHC 33.9 % (32.0-36.0); MCV 97.6 fL (80-95); MPV 9.4 fL (8.0-11.0); Monocytes % 18.5; Neutrophils % 44.2; Nucleated RBC 0 %; Platelet Count 222 10^3/uL (130-400); RBC 3.38 10^6/uL (3.93-5.22); RDW 13.4 % (11.7-14.6); RDW-SD 47.3 fL; WBC 3.52 10^3/uL (4.4-10.8)
[2021-06-29 09:37] LABS: ALT 23 U/L (14-59); AST 25 U/L (15-37); Albumin 3.5 g/dL (3.4-5.0); Alkaline Phosphatase 50 U/L (46-116); Anion Gap 5.1 mmol/L (3-11); BUN 17 mg/dL (7-18); Bilirubin, Total 0.4 mg/dL (0.2-1.0); CO2 28.9 mmol/L (21.0-32.0); CREATININE 0.5 mg/dL (0.55-1.02); Calcium 8.9 mg/dL (8.5-10.1); Chloride 102 mmol/L (98-107); Glucose 84 mg/dL (74-106); Magnesium 1.9 mg/dL (1.8-2.4); Potassium 4.1 mmol/L (3.5-5.1); Sodium 136 mmol/L (136-145); Total Protein 6.9 g/dL (6.4-8.2)
[2021-07-03 20:07] LABS: Cancer Ag 15-3 59 U/mL (<30)
== END 2021-06-30 23:59 | disposition home or self-care (01) ==
LOC: INF 02:47
PROVIDERS: PCP Internal Medicine; Visit Provider Internal Medicine Hematology & Oncology
DX: C50.412 Malignant neoplasm of upper-outer quadrant of left female breast (principal); Z45.2 Encounter for adjustment and management of vascular access device; Z17.0 Estrogen receptor positive status [ER+]
CPT/HCPCS: 36591; 80053; 86304; 83735; 85025; 86300

== ENCOUNTER 2021-07-27 03:14 | Outpatient (RCR) | payer BC, SELFPAY ==
[2021-07-06 12:31] LABS: Absolute Basophil Count 0.09 10^3/uL (0.0-0.2); Absolute Monocyte Count 0.23 10^3/uL (0.1-0.8); Absolute Neutrophil Count 1.93 10^3/uL (1.2-6.7); Basophils % 2.5; HCT 31.9 % (36.0-46.0); HGB 10.8 g/dL (11.2-15.7); Immature Grans % 2.8; Lymphocytes % 33.8; MCHC 33.9 % (32.0-36.0); MCV 94.4 fL (80-95); MPV 9.8 fL (8.0-11.0); Monocytes % 6.5; Neutrophils % 54.4; Nucleated RBC 0 %; Platelet Count 192 10^3/uL (130-400); RBC 3.38 10^6/uL (3.93-5.22); RDW 13.1 % (11.7-14.6); RDW-SD 45.2 fL; WBC 3.55 10^3/uL (4.4-10.8)
[2021-07-06] MEDS: Normal Saline Flush 10 ML SYR IVP (12:36)
[2021-07-06 12:49] LABS: ALT 20 U/L (14-59); AST 29 U/L (15-37); Albumin 3.7 g/dL (3.4-5.0); Alkaline Phosphatase 51 U/L (46-116); Anion Gap 7.4 mmol/L (3-11); BUN 17 mg/dL (7-18); Bilirubin, Total 0.6 mg/dL (0.2-1.0); CO2 28.6 mmol/L (21.0-32.0); CREATININE 0.5 mg/dL (0.55-1.02); Calcium 9.4 mg/dL (8.5-10.1); Chloride 102 mmol/L (98-107); Glucose 98 mg/dL (74-106); Potassium 3.5 mmol/L (3.5-5.1); Sodium 138 mmol/L (136-145); Total Protein 7.2 g/dL (6.4-8.2)
[2021-07-06 13:45] LABS: Magnesium 1.7 mg/dL (1.8-2.4)
[2021-07-20] MEDS: Normal Saline Flush 10 ML SYR IVP (08:45)
[2021-07-20 09:01] LABS: Abs Immature Grans 0.03 10^3/uL (0.0-0.06); Absolute Basophil Count 0.03 10^3/uL (0.0-0.2); Absolute Monocyte Count 0.67 10^3/uL (0.1-0.8); Absolute Neutrophil Count 1.27 10^3/uL (1.2-6.7); Basophils % 0.9; HCT 34.9 % (36.0-46.0); HGB 11.7 g/dL (11.2-15.7); Immature Grans % 0.9; Lymphocytes % 37.5; MCH 31.5 pg (27.0-33.0); MCHC 33.5 % (32.0-36.0); MCV 94.1 fL (80-95); MPV 9.4 fL (8.0-11.0); Monocytes % 20.9; Neutrophils % 39.8; Nucleated RBC 0 %; Platelet Count 242 10^3/uL (130-400); RBC 3.71 10^6/uL (3.93-5.22); RDW 13.2 % (11.7-14.6); RDW-SD 45.9 fL
[2021-07-20 09:16] LABS: ALT 24 U/L (14-59); AST 27 U/L (15-37); Albumin 3.8 g/dL (3.4-5.0); Alkaline Phosphatase 54 U/L (46-116); Anion Gap 8.1 mmol/L (3-11); BUN 9 mg/dL (7-18); Bilirubin, Total 0.5 mg/dL (0.2-1.0); CO2 25.9 mmol/L (21.0-32.0); CREATININE 0.5 mg/dL (0.55-1.02); Calcium 9.2 mg/dL (8.5-10.1); Chloride 102 mmol/L (98-107); Glucose 86 mg/dL (74-106); Magnesium 2.2 mg/dL (1.8-2.4); Potassium 4.2 mmol/L (3.5-5.1); Sodium 136 mmol/L (136-145); Total Protein 7.5 g/dL (6.4-8.2)
[2021-07-21 15:01] LABS: Cancer Ag 15-3 58 U/mL (<30)
[2021-07-27] MEDS: Normal Saline Flush 10 ML SYR IVP (07:43)
[2021-07-27 07:46] LABS: Abs Immature Grans 0.09 10^3/uL (0.0-0.06); Absolute Basophil Count 0.08 10^3/uL (0.0-0.2); Absolute Lymphocyte Count 1.05 10^3/uL (1.2-3.4); Absolute Neutrophil Count 2.28 10^3/uL (1.2-6.7); Basophils % 2.2; HCT 34.2 % (36.0-46.0); HGB 11.6 g/dL (11.2-15.7); Immature Grans % 2.4; Lymphocytes % 28.4; MCH 31.5 pg (27.0-33.0); MCHC 33.9 % (32.0-36.0); MCV 92.9 fL (80-95); MPV 9.9 fL (8.0-11.0); Monocytes % 5.4; Neutrophils % 61.6; Nucleated RBC 0 %; Platelet Count 177 10^3/uL (130-400); RBC 3.68 10^6/uL (3.93-5.22)
[2021-07-27 08:07] LABS: ALT 26 U/L (14-59); AST 32 U/L (15-37); Albumin 3.8 g/dL (3.4-5.0); Alkaline Phosphatase 55 U/L (46-116); Anion Gap 8.7 mmol/L (3-11); BUN 12 mg/dL (7-18); Bilirubin, Total 0.6 mg/dL (0.2-1.0); CO2 26.3 mmol/L (21.0-32.0); CREATININE 0.6 mg/dL (0.55-1.02); Calcium 9.3 mg/dL (8.5-10.1); Chloride 103 mmol/L (98-107); Glucose 102 mg/dL (74-106); Magnesium 2.1 mg/dL (1.8-2.4); Potassium 3.8 mmol/L (3.5-5.1); Sodium 138 mmol/L (136-145); Total Protein 7.4 g/dL (6.4-8.2)
== END 2021-07-31 23:59 | disposition home or self-care (01) ==
LOC: INF 03:14
PROVIDERS: Internal Medicine Hematology & Oncology; PCP Internal Medicine; Visit Provider Internal Medicine Hematology & Oncology
DX: C50.412 Malignant neoplasm of upper-outer quadrant of left female breast (principal); Z17.0 Estrogen receptor positive status [ER+]; C79.51 Secondary malignant neoplasm of bone; C78.7 Secondary malignant neoplasm of liver and intrahepatic bile duct; Z45.2 Encounter for adjustment and management of vascular access device
CPT/HCPCS: 36591; 80053; 86304; 83735; 85025; 86300

== ENCOUNTER 2021-08-17 01:20 | Outpatient (RCR) | payer BC, SELFPAY ==
[2021-08-10] MEDS: Normal Saline Flush 10 ML SYR IVP (09:14)
[2021-08-10 09:24] LABS: Abs Immature Grans 0.03 10^3/uL (0.0-0.06); Absolute Basophil Count 0.03 10^3/uL (0.0-0.2); Absolute Lymphocyte Count 1.03 10^3/uL (1.2-3.4); Absolute Monocyte Count 0.73 10^3/uL (0.1-0.8); Absolute Neutrophil Count 1.22 10^3/uL (1.2-6.7); HCT 33.6 % (36.0-46.0); HGB 11.4 g/dL (11.2-15.7); Lymphocytes % 33.9; MCH 31.2 pg (27.0-33.0); MCHC 33.9 % (32.0-36.0); MCV 92.1 fL (80-95); Neutrophils % 40.1; Nucleated RBC 0 %; Platelet Count 230 10^3/uL (130-400); RBC 3.65 10^6/uL (3.93-5.22); RDW 13.3 % (11.7-14.6); RDW-SD 44.5 fL; WBC 3.04 10^3/uL (4.4-10.8)
[2021-08-10 09:36] LABS: ALT 23 U/L (14-59); AST 25 U/L (15-37); Albumin 3.8 g/dL (3.4-5.0); Alkaline Phosphatase 49 U/L (46-116); Anion Gap 6.7 mmol/L (3-11); BUN 11 mg/dL (7-18); Bilirubin, Total 0.5 mg/dL (0.2-1.0); CO2 29.3 mmol/L (21.0-32.0); CREATININE 0.5 mg/dL (0.55-1.02); Calcium 9.5 mg/dL (8.5-10.1); Chloride 101 mmol/L (98-107); Glucose 97 mg/dL (74-106); Magnesium 2.1 mg/dL (1.8-2.4); Potassium 4.2 mmol/L (3.5-5.1); Sodium 137 mmol/L (136-145); Total Protein 7.4 g/dL (6.4-8.2)
[2021-08-11 20:04] LABS: Cancer Ag 15-3 53 U/mL (<30)
[2021-08-17] MEDS: Normal Saline Flush 10 ML SYR IVP (12:48)
[2021-08-17 13:13] LABS: Abs Immature Grans 0.16 10^3/uL (0.0-0.06); Absolute Basophil Count 0.02 10^3/uL (0.0-0.2); Absolute Eosinophil Count 0.03 10^3/uL (0.0-0.7); Absolute Lymphocyte Count 0.88 10^3/uL (1.2-3.4); Absolute Monocyte Count 0.27 10^3/uL (0.1-0.8); Absolute Neutrophil Count 2.73 10^3/uL (1.2-6.7); Basophils % 0.5; Eosinophils % 0.7; HCT 32.3 % (36.0-46.0); HGB 11.1 g/dL (11.2-15.7); Immature Grans % 3.9; Lymphocytes % 21.5; MCH 30.6 pg (27.0-33.0); MCHC 34.4 % (32.0-36.0); MPV 9.6 fL (8.0-11.0); Monocytes % 6.6; Neutrophils % 66.8; Nucleated RBC 0 %; Platelet Count 181 10^3/uL (130-400); RBC 3.63 10^6/uL (3.93-5.22); RDW 13.3 % (11.7-14.6); RDW-SD 43.3 fL; WBC 4.09 10^3/uL (4.4-10.8)
[2021-08-17 13:27] LABS: ALT 24 U/L (14-59); AST 31 U/L (15-37); Albumin 3.7 g/dL (3.4-5.0); Alkaline Phosphatase 55 U/L (46-116); Anion Gap 6.2 mmol/L (3-11); BUN 12 mg/dL (7-18); Bilirubin, Total 0.6 mg/dL (0.2-1.0); CO2 28.8 mmol/L (21.0-32.0); CREATININE 0.4 mg/dL (0.55-1.02); Calcium 10.1 mg/dL (8.5-10.1); Chloride 97 mmol/L (98-107); Glucose 94 mg/dL (74-106); Potassium 3.8 mmol/L (3.5-5.1); Sodium 132 mmol/L (136-145); Total Protein 7.3 g/dL (6.4-8.2)
[2021-08-17 13:53] LABS: Diff Comment Diff Reviewed; RBC Morphology Normal
[2021-08-17 17:08] LABS: Magnesium 1.7 mg/dL (1.8-2.4)
== END 2021-08-28 23:59 | disposition home or self-care (01) ==
LOC: INF 01:20
PROVIDERS: Internal Medicine Hematology & Oncology; PCP Internal Medicine; Visit Provider Internal Medicine Hematology & Oncology
DX: C50.412 Malignant neoplasm of upper-outer quadrant of left female breast; C79.51 Secondary malignant neoplasm of bone; C78.7 Secondary malignant neoplasm of liver and intrahepatic bile duct; Z17.0 Estrogen receptor positive status [ER+]; Z45.2 Encounter for adjustment and management of vascular access device
CPT/HCPCS: 36591; 80053; 86304; 83735; 85025; 86300

== ENCOUNTER 2021-09-07 02:01 | Outpatient (RCR) | payer BC, SELFPAY ==
[2021-09-07] MEDS: Normal Saline Flush 10 ML SYR IVP (09:35)
[2021-09-07 10:01] LABS: Abs Immature Grans 0.03 10^3/uL (0.0-0.06); Absolute Basophil Count 0.05 10^3/uL (0.0-0.2); Absolute Eosinophil Count 0.21 10^3/uL (0.0-0.7); Absolute Lymphocyte Count 0.78 10^3/uL (1.2-3.4); Absolute Monocyte Count 0.69 10^3/uL (0.1-0.8); Absolute Neutrophil Count 4.35 10^3/uL (1.2-6.7); Basophils % 0.8; Eosinophils % 3.4; HCT 31.9 % (36.0-46.0); HGB 10.6 g/dL (11.2-15.7); Immature Grans % 0.5; Lymphocytes % 12.8; MCH 29.9 pg (27.0-33.0); MCHC 33.2 % (32.0-36.0); MCV 90.1 fL (80-95); Monocytes % 11.3; Neutrophils % 71.2; Nucleated RBC 0 %; Platelet Count 200 10^3/uL (130-400); RBC 3.54 10^6/uL (3.93-5.22); RDW 14.3 % (11.7-14.6); RDW-SD 46.5 fL; WBC 6.11 10^3/uL (4.4-10.8)
[2021-09-07 10:16] LABS: ALT 18 U/L (14-59); AST 25 U/L (15-37); Albumin 3.4 g/dL (3.4-5.0); Alkaline Phosphatase 62 U/L (46-116); Anion Gap 8.2 mmol/L (3-11); BUN 12 mg/dL (7-18); Bilirubin, Total 0.5 mg/dL (0.2-1.0); CO2 25.8 mmol/L (21.0-32.0); CREATININE 0.5 mg/dL (0.55-1.02); Calcium 8.9 mg/dL (8.5-10.1); Chloride 102 mmol/L (98-107); Glucose 96 mg/dL (74-106); Potassium 4.2 mmol/L (3.5-5.1); Sodium 136 mmol/L (136-145); Total Protein 7.1 g/dL (6.4-8.2)
[2021-09-08 14:27] LABS: Cancer Ag 15-3 50 U/mL (<30)
== END 2021-09-28 23:59 | disposition home or self-care (01) ==
LOC: INF 02:01
PROVIDERS: PCP Internal Medicine; Visit Provider Internal Medicine Hematology & Oncology
DX: C50.412 Malignant neoplasm of upper-outer quadrant of left female breast (principal); Z17.0 Estrogen receptor positive status [ER+]; Z45.2 Encounter for adjustment and management of vascular access device
CPT/HCPCS: 36591; 80053; 86304; 83735; 85025; 86300

== ENCOUNTER 2021-09-11 10:32 | Emergency (ER) | payer BC, SELFPAY ==
[2021-09-11] VITALS (49 sets, daily range): BP systolic 91–144; BP diastolic 53–95; PULSE 81–106; RESP 14–32; TEMP 36.5–38; O2SAT 95–100
--- NOTE | 2021-09-11 10:45 | DI.RAD_ITS ---
Exam(s) XR PORTABLE CHEST AP EXAM: XR PORTABLE CHEST AP CLINICAL HISTORY: fever TECHNIQUE: 2D digital imaging was performed. COMPARISON: CT CT CHEST PE CTA from 05/11/2021 FINDINGS: LUNGS: Clear. No pleural abnormality seen. HEART: Normal. MEDIASTINUM: Normal. Port over right upper chest with tip in SVC. BONES: Mild compression fracture lower lumbar spine. Mottled appearance of bones. Patient has known bone metastases. IMPRESSION: No acute pulmonary findings. DATA REPOSITORY: RADIATION DOSE DELIVERED:
--- NOTE | 2021-09-11 11:23 | W.ED.GENAD ---
Discharge Plan Disposition Patient Disposition: HOME Condition: Stable Discharge Details Clinical Impression: Fever, Pneumonia Primary Care Provider: Beryl Coronado ED Provider: Issa Chetser Home Meds and New Rx's Prescriptions: New amoxicillin-pot clavulanate 875-125 mg tablet 1 tab PO BID Qty: 10 0RF doxycycline hyclate 100 mg capsule 100 mg PO BID Qty: 10 0RF Held calcium carbonate-vitamin D2 600 mg calcium- 200 unit Tablet 1 tab PO DAILY 0RF Hold Instructions: Resume on 09/11/21. Please do not take your calcium supplement with your doxycycline as this will decrease the effectiveness of antibiotic. Discharge Instructions Instructions: Fever in Adults (ED), Pneumonia (ED) Additional Instructions: Please stay well-hydrated and attempt to have appropriate nutrition given your chemotherapy that you are on and your concern of possible fever or pneumonia. You may continue to take vjvr-mei-pognsup ibuprofen as needed for fever. If you have any significant worsening of your condition, shortness of breath, or any further concerns please return to emergency department for reevaluation. Otherwise it is important that you follow-up with your oncologist for reassessment and to ensure that the antibiotics chosen are appropriate. Referrals: [facility] [Provider Group] (Please call the office for arrangement of follow-up appointment) Discharge Data Discharge Date/Time-TO BE ENTERED AT DEPARTURE: 09/11/21 17:40 Medical Decision Making <JOSE White - Last Filed: 09/15/21 14:58> Patient is a pleasant 60-year-old female, accompanied by her sister, with chief complaint of fever. Patient is currently undergoing chemotherapy for metastatic breast cancer, last treatment was on . She reports after her treatment, she developed a fever, body aches, general malaise and dry cough. States that she does have some exertional shortness of breath, particularly with the cough. Denies any personal or familial history of PE or DVT. States she has been taking Advil to help with her fever. Describes T-max of 101 ?F at home. Denies any GI upset, no nausea, vomiting or diarrhea. Denies any abdominal pain. Denies any chest pain. Denies sore throat, rhinorrhea, ear pain. States that she has had intermittent headaches, is not currently endorsing a headache. No neck pain. Denies any rashes. Denies any dysuria or other change in urinary symptoms. On exam, patient appears chronically ill but acutely nontoxic. Her vital signs are stable. She does appear slightly dry. Normal HEENT exam. No nuchal rigidity. Abdomen is benign. Lungs are clear all nicole, normal cardiac exam. No posterior calf tenderness, 2+ distal pulses. No lower extremity edema. Primarily concerned this time for potential neutropenic fever. As this is been a recurrent issue for the patient, after having previous rounds of chemo, her oncology team found you have been concerned for potential infected port. Port does not appear acutely infected externally. Will obtain cultures from the port as well as blood cultures, urine cultures, baseline blood work and chest x-ray. This patient has been having some exertional shortness of breath with cough, also consider potential pulmonary embolism will obtain d-dimer for evaluation. Labs reviewed. WBC slightly low at 4.24, ANC 3.4. Lactate normal. Hyponatremia at 131, hypokalemia 3.2.COVID negative. Potassium replenished orally. FINDINGS: LUNGS: Clear. No pleural abnormality seen. HEART: Normal. MEDIASTINUM: Normal.? Port over right upper chest with tip in SVC. BONES: Mild compression fracture lower lumbar spine.? Mottled appearance of bones.? Patient has known bone metastases. IMPRESSION: No acute pulmonary findings. Patient labs are reassuring, you do not have a neutropenic fever. D-dimer is pending. Have requested consultation with oncology at [facility]. D-dimer is elevated at 3727, will move forward with CT for PE protocol. At the end of my shift, care transition to shirin Chester NP with CT for PE protocol pending as well as consultation with oncology at [facility]. Consulted with oncology PROCESS EXPERT at [facility] in [facility]. She advises that they would hold the port until cultures have returned. She recommended cephalexin for one week until cultures have returned. Alternatively, as this is recurrent for thpatient after chemo, she advised it could be side effect of the chemo or the cancer itself. <Issa Chester NP - Last Filed: 09/12/21 15:30> Patient is a pleasant 60-year-old female, accompanied by her sister, with chief complaint of fever. Patient is currently undergoing chemotherapy for metastatic breast cancer, last treatment was on . She reports after her treatment, she developed a fever, body aches, general malaise and dry cough. States that she does have some exertional shortness of breath, particularly with the cough. Denies any personal or familial history of PE or DVT. States she has been taking Advil to help with her fever. Describes T-max of 101 ?F at home. Denies any GI upset, no nausea, vomiting or diarrhea. Denies any abdominal pain. Denies any chest pain. Denies sore throat, rhinorrhea, ear pain. States that she has had intermittent headaches, is not currently endorsing a headache. No neck pain. Denies any rashes. Denies any dysuria or other change in urinary symptoms. On exam, patient appears chronically ill but acutely nontoxic. Her vital signs are stable. She does appear slightly dry. Normal HEENT exam. No nuchal rigidity. Abdomen is benign. Lungs are clear all nicole, normal cardiac exam. No posterior calf tenderness, 2+ distal pulses. No lower extremity edema. Primarily concerned this time for potential neutropenic fever. As this is been a recurrent issue for the patient, after having previous rounds of chemo, her oncology team found you have been concerned for potential infected port. Port does not appear acutely infected externally. Will obtain cultures from the port as well as blood cultures, urine cultures, baseline blood work and chest x-ray. This patient has been having some exertional shortness of breath with cough, also consider potential pulmonary embolism will obtain d-dimer for evaluation. Labs reviewed. WBC slightly low at 4.24, ANC 3.4. Lactate normal. Hyponatremia at 131, hypokalemia 3.2.COVID negative. Potassium replenished orally. FINDINGS: LUNGS: Clear. No pleural abnormality seen. HEART: Normal. MEDIASTINUM: Normal.? Port over right upper chest with tip in SVC. BONES: Mild compression fracture lower lumbar spine.? Mottled appearance of bones.? Patient has known bone metastases. IMPRESSION: No acute pulmonary findings. Patient labs are reassuring, you do not have a neutropenic fever. D-dimer is pending. Have requested consultation with oncology at [facility]. D-dimer is elevated at 3727, will move forward with CT for PE protocol. At the end of my shift, care transition to Isma Chester NP with CT for PE protocol pending as well as consultation with oncology at [facility]. Consulted with oncology PROCESS EXPERT at [facility] in [facility]. She advises that they would hold the port until cultures have returned. She recommended cephalexin for one week until cultures have returned. Alternatively, as this is recurrent for thpatient after chemo, she advised it could be side effect of the chemo or the cancer itself. 1600-bedside report was received from Mariah Joseph and pending CT imaging. Please see previous documentation for HPI physical exam review of systems. 1655-spoke to radiologist whom stated no pulmonary emboli or thrombus noted but diffuse patchy infiltrates without specific consolidation was noted on CT. Plan to treat patient with antibiotics to cover for possible early pneumonia given fever, cough, shortness of breath. [address] Jennie Miner at [facility]. Discussed CT imaging findings of patchy infiltrates but no thrombus and all of patient's labs. Developed plan for patient to be treated for pneumonia with Augmentin and doxycycline and for patient to have close follow-up with the [facility] in [place]. We will plan on waiting for any further treatments until blood cultures return. Patient is agreeable to this plan and states clear understanding that she may return for any significant change or worsening of condition otherwise is agreeable to outpatient therapy and given vital signs and labs I do feel is stable enough to start with outpatient antibiotics. After discussion of diagnosis and plan of care patient has no further needs, questions, or concerns and states clear understanding to return to the emergency department for any worsening symptoms. HPI <JOSE White - Last Filed: 09/15/21 14:58> General Date/Time Provider Initiated Documentation: 09/11/21 10:52. History of Present Illness 61 year old F presents to the emergency department with the chief complaint of Body aches, fevers, poor appetite, dry cough and general malaise, described as mild, with intensity rated at 3. Quality is described as aching, Patient started experiencing this day(s) and it has been constant. improves with No relieving factors improve symptom(s), Medication worsens symptoms (symptoms began after chemo infusion, had similar symptoms a few weeks ago after previous dose) . Patient notes cough (dry), fever/chills, headaches (intermittent), loss of appetite and shortness of breath (with cough/exertion); denies chest pain, diaphoresis, nausea/vomiting, rash and syncope. Patient did receive the following treatments prior to arrival, NSAID Related Data Home Medications Medication Instructions Recorded Confirmed amoxicillin 875 mg-potassium 1 tab PO BID #10 tab 09/11/21 clavulanate 125 mg tablet calcium carb-ergocalciferol (vit 1 tab PO DAILY 09/11/21 09/11/21 D2) 600 mg calcium-200 unit tablet doxycycline hyclate 100 mg capsule 100 mg PO BID #10 cap 09/11/21 Previous Rx's Medication Instructions Recorded amoxicillin 875 mg-potassium 1 tab PO BID #10 tab 09/11/21 clavulanate 125 mg tablet doxycycline hyclate 100 mg capsule 100 mg PO BID #10 cap 09/11/21 Allergies Allergy/AdvReac Type Severity Reaction Status Date / Time prochlorperazine Allergy Unverified 09/11/21 10:53 [From Compazine] taxol Allergy Uncoded 09/11/21 10:53 General Stated Complaint: [employer]Medical NETTIE: 3 Review of Systems <JOSE White - Last Filed: 09/15/21 14:58> Constitutional Constitutional: Reports as per HPI, Reports chills, Reports fatigue, Reports fever(s), Reports headache(s) (intermittent, no HARRIS currently), Reports lethargy and Reports poor appetite Eyes Eyes: Reports as per HPI, Denies change in vision, Denies eye discharge and Denies irritation ENT Ears, Nose, Mouth, and Throat: Reports as per HPI and Reports headache(s) (intermittent, no HARRIS currently) Cardiovascular Cardiovascular: Reports as per HPI, Denies chest pain, Reports dyspnea (with cough or exertion) and Reports dyspnea on exertion Respiratory Respiratory: Reports as per HPI, Denies chest congestion, Reports cough, Denies hemoptysis, Denies excessive phlegm production, Reports dyspnea (with cough or exertion) and Reports dyspnea on exertion Gastrointestinal Gastrointestinal: Reports as per HPI, Denies abdominal pain, Denies change in bowel habits, Denies nausea and Denies vomiting Genitourinary Genitourinary: Denies dysuria, Denies flank pain and Denies urinary urgency Integumentary/Breasts Skin/Breast: Reports as per HPI and Denies rash Neurologic Neurologic: Reports as per HPI and Reports headache(s) (intermittent, no HARRIS currently) Endocrine Endocrine: Reports fatigue PFSH <JOSE White - Last Filed: 09/15/21 14:58> All Active Problems (Updated 09/11/21 @ 17:26 by Issa Chester NP) Chemotherapy adverse reaction (Acute) Metastatic breast cancer (Acute) Fever (Acute) Pneumonia (Acute) Medical History Metastatic breast cancer Surgical History H/O left mastectomy History of hysterectomy History of knee replacement Social History (System 05/10/21 @ 14:57 by Francine Pearl) Smoking/Tobacco Use Status: Never Smoking risk assessment performed?: Yes Alcohol Intake: never Drug use: Daily Substance use type: marijuana Details: Medical Marijuana used at night to help with sleep Do you feel safe at home: Yes Do you feel safe in your relationship?: Yes Exam <JOSE White - Last Filed: 09/15/21 14:58> Const General: cooperative, comfortable, no acute distress, well developed, well groomed and ill appearing chronically Nutritional Appearance: well nourished and thin Orientation: alert and awake [facility] Head: normal to inspection, normocephalic and atraumatic Ears: hearing grossly normal bilaterally, external ears normal and TM's normal bilaterally General nose exam: external nose normal and nares normal Face and sinus: normal facial exam, sinuses nontender and face symmetric Mouth: oral mucosae normal, lip normal, tongue normal, oropharynx normal and moist mucous membranes Teeth and gingiva: dentition normal Throat: posterior oropharynx normal, tonsils normal and uvula midline Eyes General: appearance normal, both eyes and all related structures Neck Neck: normal visual inspection, full ROM, no lymphadenopathy and no meningeal signs Chest Chest: normal inspection of the chest (port without surrounding erythema, warmth, drainage, pain) Resp Effort & Inspection: normal respiratory effort, able to speak in complete sentences and no respiratory distress Auscultation: clear to auscultation bilaterally, no rales, no rhonchi and no wheezes Cardio Rate: regular rate Rhythm: regular rhythm Heart Sounds: S1 normal and S2 normal GI Inspection: normal to inspection, no edema, non-distended and no obesity Palpation: soft, not firm, no guarding, no masses, not rigid and nontender Percussion: normal to percussion Auscultation: normal bowel sounds Back/Spine/Pelvis Back: no CVA tenderness Skin General skin exam: no rashes or lesions noted Neuro General: patient alert and patient awake Cognition: normal cognition Speech: speech normal Gait: normal gait Extrem General: normal to inspection, capillary refill normal, no pedal edema and no calf tenderness Psych Appearance: grossly normal and well kempt Mental Status: mental status grossly normal Speech and Movement: speech and movement normal Course <JOSE White - Last Filed: 09/15/21 14:58> Vital Signs Vital signs: Vital Signs Temperature 36.5 C 09/11/21 10:47 Pulse 81 09/11/21 10:47 Respiratory Rate 24 09/11/21 10:47 Blood Pressure 108/60 09/11/21 10:47 Pulse Oximetry 99 09/11/21 10:47 Temperature 36.5 C 09/11/21 10:47 Temperature Source Skin 09/11/21 10:47 Pulse 81 09/11/21 10:47 Respiratory Rate 24 09/11/21 10:47 Respiratory Effort 09/11/21 10:47 Blood Pressure 108/60 09/11/21 10:47 Blood Pressure Position Supine 09/11/21 10:47 Pulse Oximetry 99 09/11/21 10:47 Oxygen Delivery Method Room Air 09/11/21 10:47 Oxygen Flow Rate 0 09/11/21 10:47 Pain Level 3 09/11/21 10:47 Lab/Test Results Lab/Test Results: 09/11/21 10:53 Blood Blood Culture - Pending 09/11/21 10:53 Blood Blood Culture - Pending Sign Out <JOSE White - Last Filed: 09/15/21 14:58> Sign Out Data: Sign Out Comment: Care transition to Issa Chester NP, with CT for PE protocol and oncology consultation pending. Patient currently febrile with a temp of 38 5, given Tylenol. She has received ibuprofen. Last dose of chemotherapy on for onset of breast cancer, has been having fevers, general malaise since then. Last updated by Mariah Joseph PA at 09/11/21 15:53
[2021-09-11 11:34] LABS: Lactate 0.8 mmol/L (0.6-1.4)
[2021-09-11 11:37] LABS: Abs Immature Grans 0.03 10^3/uL (0.0-0.06); Absolute Basophil Count 0.02 10^3/uL (0.0-0.2); Absolute Eosinophil Count 0.12 10^3/uL (0.0-0.7); Absolute Lymphocyte Count 0.52 10^3/uL (1.2-3.4); Absolute Monocyte Count 0.15 10^3/uL (0.1-0.8); Basophils % 0.5; Eosinophils % 2.8; HCT 34.5 % (36.0-46.0); HGB 11.6 g/dL (11.2-15.7); Immature Grans % 0.7; Lymphocytes % 12.3; MCH 29.7 pg (27.0-33.0); MCHC 33.6 % (32.0-36.0); MCV 88.2 fL (80-95); MPV 9.4 fL (8.0-11.0); Monocytes % 3.5; Neutrophils % 80.2; Nucleated RBC 0 %; Platelet Count 164 10^3/uL (130-400); RBC 3.91 10^6/uL (3.93-5.22); RDW 14.3 % (11.7-14.6); RDW-SD 45.7 fL; Source Nasopharynx; WBC 4.24 10^3/uL (4.4-10.8)
[2021-09-11] MEDS: Normal Saline 1,000 ML 1000 ML IV (11:43)
[2021-09-11 12:06] LABS: ALT 19 U/L (14-59); AST 29 U/L (15-37); Albumin 3.4 g/dL (3.4-5.0); Alkaline Phosphatase 69 U/L (46-116); Anion Gap 9.1 mmol/L (3-11); BUN 15 mg/dL (7-18); CO2 26.9 mmol/L (21.0-32.0); CREATININE 0.5 mg/dL (0.55-1.02); Chloride 95 mmol/L (98-107); Glucose 104 mg/dL (74-106); Magnesium 2.1 mg/dL (1.8-2.4); Potassium 3.2 mmol/L (3.5-5.1); Sodium 131 mmol/L (136-145); Total Protein 7.6 g/dL (6.4-8.2); Troponin I < 50 ng/L (<or=60)
[2021-09-11 12:20] LABS: COVID-19 PCR Negative (Negative)
[2021-09-11 14:48] LABS: D-Dimer 3727 ng/mlFEU (<500)
[2021-09-11 15:17] LABS: Troponin I < 50 ng/L (<or=60)
[2021-09-11] MEDS: Ibuprofen 600 MG TAB PO (15:24)
[2021-09-11] MEDS: POTASSIUM CHLORIDE 20 MEQ, POTASSIUM CHLORIDE 10 MEQ 30 MEQ PO (15:50)
[2021-09-11 16:02] LABS: Bilirubin Negative (Negative); Blood Negative (Negative); Clarity Clear (Clear); Glucose Negative (Negative); Ketones Negative (Negative); Leukocyte Esterase Negative (Negative); Nitrite Negative (Negative)
[2021-09-11] MEDS: Acetaminophen 325 MG TAB 650 MG PO (16:10)
--- NOTE | 2021-09-11 16:10 | NUR.NOTE ---
Nursing Note: Pt ambulatory to BR, urine sample obtained & sent to lab. Pt c/o chills, temp 38.0 orally, provider aware, medicated PO tylenol for fever, cont. to monitor.
[2021-09-11] MEDS: Omnipaque 350 MG/ML 100 ML BTL 59 ML IJ (16:28)
--- NOTE | 2021-09-11 16:28 | DI.CT_ITS ---
Exam(s) CT CHEST PE CTA EXAM: CT CHEST PE CTA CLINICAL HISTORY: cough, fever, elevaed dimer, known CA. TECHNIQUE: Imaging Protocol: Axial CT angiography was performed with multi-slice acquisition and mu lti-planar and/or 3D reconstructions. CONTRAST MATERIAL: Intravenous: Omnipaque 350 Contrast volume: 100 cc COMPARISON: CT CT CHEST PE CTA from 05/11/2021 CR XR PORTABLE CHEST AP from 09/11/2021 FINDINGS: Pulmonary Arteries: No evidence of filling defect to suggest pulmonary emboli. Tracheobronchial tree: Patent where visualized. Mediastinum and Georgie: No dominant adenopathy or fluid collection. Pulmonary parenchyma: Scattered diffuse pulmonary infiltrates. Stable medial bronchiectasis and scar ring in the left upper lobe. Pleura: No effusion or pneumothorax. Heart: The heart is not dilated. No coronary artery calcifications are seen. Aorta: Thoracic aorta non-dilated. No aneurysm. No dissection. Soft tissues: Left mastectomy. Upper abdomen: Multiple low-density liver lesions. Liver also appears somewhat cirrhotic. Bones: Multiple lytic lesions throughout the spine. Lytic and sclerotic lesions seen in the sternum. Tubes, Catheters, and Lines: Port over right chest wall. IMPRESSION: Patchy bilateral ground glass infiltrates. No evidence of pulmonary embolism. Metastatic lesions in the liver and spine. Results of this exam have been verbally communicated with emergency department provider. RADIATION DOSE DELIVERED: 273.09mGy.cm Total DLP DATA REPOSITORY: All CT scans at this facility are submitted to the National Radiology Data Registry (NRDR) Dose Index Registry (DIR) with the [employer] (A[employer]). RADIATION OPTIMIZATION: All CT scans at this facility use at least one of these dose optimization te chniques: automated exposure control; mA and/or kV adjustment per patient size (includes targeted exa ms where dose is matched to clinical indication); or iterative reconstruction.
--- NOTE | 2021-09-11 16:36 | NUR.NOTE ---
Nursing Note: F/U temp 99.1 orally, pt reports feeling 'much better', provider notified.
[2021-09-11] MEDS: Amoxicillin 875/Clav. 125 TAB PO ×2 (17:27→17:28)
[2021-09-11] MEDS: Doxycycline Hyclate 100 MG CAP PO (17:28)
== END 2021-09-11 17:40 | disposition home or self-care (01) ==
PROVIDERS: Physician Assistant; Emergency Provider Nurse Practitioner Family; PCP Internal Medicine
DX: R50.9 Fever, unspecified (principal); J18.9 Pneumonia, unspecified organism; C50.912 Malignant neoplasm of unspecified site of left female breast; Z79.899 Other long term (current) drug therapy; R06.02 Shortness of breath; E87.6 Hypokalemia
CPT/HCPCS: 71275; 80053; 87040; 87635; 96360; 99284; 99285; 71045; 81003; 83605; 83735; 84484; 85025; 85379; J3490

== ENCOUNTER 2021-10-26 09:00 | Outpatient (RCR) | payer BC, SELFPAY ==
[2021-10-05] MEDS: Normal Saline Flush 10 ML SYR IVP (09:03)
[2021-10-05 09:06] LABS: Abs Immature Grans 0.01 10^3/uL (0.0-0.06); Absolute Basophil Count 0.03 10^3/uL (0.0-0.2); Absolute Eosinophil Count 0.29 10^3/uL (0.0-0.7); Absolute Lymphocyte Count 1.09 10^3/uL (1.2-3.4); Absolute Monocyte Count 0.52 10^3/uL (0.1-0.8); Absolute Neutrophil Count 2.76 10^3/uL (1.2-6.7); Basophils % 0.6; Eosinophils % 6.2; HCT 35.1 % (36.0-46.0); HGB 11.3 g/dL (11.2-15.7); Immature Grans % 0.2; Lymphocytes % 23.2; MCH 29.4 pg (27.0-33.0); MCHC 32.2 % (32.0-36.0); MCV 91.4 fL (80-95); MPV 9.3 fL (8.0-11.0); Monocytes % 11.1; Neutrophils % 58.7; Nucleated RBC 0 %; Platelet Count 187 10^3/uL (130-400); RBC 3.84 10^6/uL (3.93-5.22); RDW 14.4 % (11.7-14.6); RDW-SD 48.1 fL
[2021-10-05 09:19] LABS: ALT 25 U/L (14-59); AST 26 U/L (15-37); Albumin 3.5 g/dL (3.4-5.0); Alkaline Phosphatase 67 U/L (46-116); Anion Gap 6.6 mmol/L (3-11); BUN 14 mg/dL (7-18); Bilirubin, Total 0.5 mg/dL (0.2-1.0); CO2 27.4 mmol/L (21.0-32.0); CREATININE 0.5 mg/dL (0.55-1.02); Calcium 9.3 mg/dL (8.5-10.1); Chloride 103 mmol/L (98-107); Glucose 78 mg/dL (74-106); Potassium 4.3 mmol/L (3.5-5.1); Sodium 137 mmol/L (136-145); Total Protein 7.2 g/dL (6.4-8.2)
[2021-10-07 10:08] LABS: Cancer Ag 15-3 62 U/mL (<30)
[2021-10-12] MEDS: Normal Saline Flush 10 ML SYR IVP (11:10)
[2021-10-12 11:18] LABS: Abs Immature Grans 0.14 10^3/uL (0.0-0.06); Absolute Basophil Count 0.12 10^3/uL (0.0-0.2); Absolute Eosinophil Count 0.12 10^3/uL (0.0-0.7); Absolute Lymphocyte Count 0.68 10^3/uL (1.2-3.4); Absolute Monocyte Count 0.28 10^3/uL (0.1-0.8); Absolute Neutrophil Count 1.87 10^3/uL (1.2-6.7); Basophils % 3.7; Eosinophils % 3.7; HCT 31.9 % (36.0-46.0); HGB 10.5 g/dL (11.2-15.7); Immature Grans % 4.4; Lymphocytes % 21.2; MCH 29.7 pg (27.0-33.0); MCHC 32.9 % (32.0-36.0); MCV 90.1 fL (80-95); MPV 9.7 fL (8.0-11.0); Monocytes % 8.7; Neutrophils % 58.3; Nucleated RBC 0 %; Platelet Count 165 10^3/uL (130-400); RBC 3.54 10^6/uL (3.93-5.22); RDW 14.2 % (11.7-14.6); RDW-SD 47.8 fL; WBC 3.21 10^3/uL (4.4-10.8)
[2021-10-12 11:31] LABS: ALT 20 U/L (14-59); AST 23 U/L (15-37); Albumin 3.4 g/dL (3.4-5.0); Alkaline Phosphatase 55 U/L (46-116); Anion Gap 5.9 mmol/L (3-11); BUN 10 mg/dL (7-18); Bilirubin, Total 0.7 mg/dL (0.2-1.0); CO2 28.1 mmol/L (21.0-32.0); CREATININE 0.4 mg/dL (0.55-1.02); Calcium 8.8 mg/dL (8.5-10.1); Chloride 101 mmol/L (98-107); Glucose 83 mg/dL (74-106); Magnesium 2.1 mg/dL (1.8-2.4); Potassium 3.8 mmol/L (3.5-5.1); Sodium 135 mmol/L (136-145)
[2021-10-26] MEDS: Normal Saline Flush 10 ML SYR IVP (09:45)
[2021-10-26 10:01] LABS: Abs Immature Grans 0.02 10^3/uL (0.0-0.06); Absolute Basophil Count 0.04 10^3/uL (0.0-0.2); Absolute Eosinophil Count 0.03 10^3/uL (0.0-0.7); Absolute Lymphocyte Count 1.01 10^3/uL (1.2-3.4); Absolute Monocyte Count 0.72 10^3/uL (0.1-0.8); Absolute Neutrophil Count 1.36 10^3/uL (1.2-6.7); Basophils % 1.3; Eosinophils % 0.9; HCT 33.8 % (36.0-46.0); Immature Grans % 0.6; Lymphocytes % 31.8; MCH 28.9 pg (27.0-33.0); MCHC 32.5 % (32.0-36.0); MCV 88.7 fL (80-95); MPV 9.1 fL (8.0-11.0); Monocytes % 22.6; Neutrophils % 42.8; Platelet Count 249 10^3/uL (130-400); RBC 3.81 10^6/uL (3.93-5.22); RDW 14.4 % (11.7-14.6); RDW-SD 45.9 fL; WBC 3.18 10^3/uL (4.4-10.8)
[2021-10-26 10:11] LABS: ALT 20 U/L (14-59); AST 25 U/L (15-37); Albumin 3.5 g/dL (3.4-5.0); Alkaline Phosphatase 58 U/L (46-116); Anion Gap 7.8 mmol/L (3-11); BUN 12 mg/dL (7-18); Bilirubin, Total 0.5 mg/dL (0.2-1.0); CO2 28.2 mmol/L (21.0-32.0); CREATININE 0.5 mg/dL (0.55-1.02); Calcium 9.1 mg/dL (8.5-10.1); Chloride 101 mmol/L (98-107); Glucose 78 mg/dL (74-106); Magnesium 2.7 mg/dL (1.8-2.4); Potassium 4.1 mmol/L (3.5-5.1); Sodium 137 mmol/L (136-145); Total Protein 7.2 g/dL (6.4-8.2)
[2021-10-27 15:15] LABS: Cancer Ag 15-3 62 U/mL (<30)
== END 2021-10-28 23:59 | disposition home or self-care (01) ==
LOC: INF 09:00
PROVIDERS: PCP Internal Medicine; Visit Provider Internal Medicine Hematology & Oncology
DX: Z45.2 Encounter for adjustment and management of vascular access device (principal); C50.412 Malignant neoplasm of upper-outer quadrant of left female breast; Z17.0 Estrogen receptor positive status [ER+]; C79.51 Secondary malignant neoplasm of bone; C78.7 Secondary malignant neoplasm of liver and intrahepatic bile duct
CPT/HCPCS: 36591; 80053; 86304; 83735; 85025; 86300

== ENCOUNTER 2021-11-23 02:47 | Outpatient (RCR) | payer BC, SELFPAY ==
[2021-11-02] MEDS: Normal Saline Flush 10 ML SYR IVP (09:43)
[2021-11-02 09:55] LABS: Abs Immature Grans 0.12 10^3/uL (0.0-0.06); HCT 32.2 % (36.0-46.0); HGB 10.9 g/dL (11.2-15.7); MCHC 33.9 % (32.0-36.0); MCV 89 fL (80-95); MPV 9.4 fL (8.0-11.0); Platelet Count 160 10^3/uL (130-400); RBC 3.63 10^6/uL (3.93-5.22); RDW 13.8 % (11.7-14.6); RDW-SD 44.4 fL; WBC 2.69 10^3/uL (4.4-10.8)
[2021-11-02 10:07] LABS: ALT 22 U/L (14-59); AST 31 U/L (15-37); Absolute Neutrophil Count 1.75 10^3/uL (1.2-6.7); Albumin 3.6 g/dL (3.4-5.0); Alkaline Phosphatase 56 U/L (46-116); Anion Gap 6.1 mmol/L (3-11); BUN 11 mg/dL (7-18); Bilirubin, Total 0.5 mg/dL (0.2-1.0); CO2 28.9 mmol/L (21.0-32.0); CREATININE 0.5 mg/dL (0.55-1.02); Calcium 9.1 mg/dL (8.5-10.1); Chloride 101 mmol/L (98-107); Glucose 90 mg/dL (74-106); Magnesium 1.9 mg/dL (1.8-2.4); Potassium 4.1 mmol/L (3.5-5.1); Sodium 136 mmol/L (136-145); Total Protein 7.3 g/dL (6.4-8.2)
[2021-11-02 10:08] LABS: Absolute Basophil Count 0.03 10^3/uL (0.0-0.2); Absolute Lymphocyte Count 0.86 10^3/uL (1.2-3.4); Absolute Monocyte Count 0.05 10^3/uL (0.1-0.8); Diff Comment Manual Differential; RBC Morphology Normal
[2021-11-16] MEDS: Normal Saline Flush 10 ML SYR IVP (08:58)
[2021-11-16 09:04] LABS: Abs Immature Grans 0.02 10^3/uL (0.0-0.06); Absolute Basophil Count 0.03 10^3/uL (0.0-0.2); Absolute Lymphocyte Count 1.36 10^3/uL (1.2-3.4); Absolute Monocyte Count 0.69 10^3/uL (0.1-0.8); Absolute Neutrophil Count 1.29 10^3/uL (1.2-6.7); Basophils % 0.9; HCT 33.2 % (36.0-46.0); HGB 10.8 g/dL (11.2-15.7); Immature Grans % 0.6; Lymphocytes % 40.1; MCHC 32.5 % (32.0-36.0); MCV 89 fL (80-95); MPV 9.1 fL (8.0-11.0); Monocytes % 20.4; Platelet Count 207 10^3/uL (130-400); RBC 3.72 10^6/uL (3.93-5.22); RDW 14.6 % (11.7-14.6); RDW-SD 46.9 fL; WBC 3.39 10^3/uL (4.4-10.8)
[2021-11-16 09:24] LABS: ALT 25 U/L (14-59); AST 29 U/L (15-37); Albumin 3.6 g/dL (3.4-5.0); Alkaline Phosphatase 51 U/L (46-116); Anion Gap 5.2 mmol/L (3-11); BUN 14 mg/dL (7-18); Bilirubin, Total 0.5 mg/dL (0.2-1.0); CO2 28.8 mmol/L (21.0-32.0); CREATININE 0.5 mg/dL (0.55-1.02); Calcium 9.1 mg/dL (8.5-10.1); Chloride 101 mmol/L (98-107); Glucose 82 mg/dL (74-106); Sodium 135 mmol/L (136-145); Total Protein 7.1 g/dL (6.4-8.2)
[2021-11-23] MEDS: Normal Saline Flush 10 ML SYR IVP (09:10)
[2021-11-23 09:12] LABS: Abs Immature Grans 0.11 10^3/uL (0.0-0.06); Absolute Basophil Count 0.09 10^3/uL (0.0-0.2); Absolute Lymphocyte Count 1.18 10^3/uL (1.2-3.4); Absolute Monocyte Count 0.24 10^3/uL (0.1-0.8); Absolute Neutrophil Count 1.77 10^3/uL (1.2-6.7); Basophils % 2.7; HCT 32.9 % (36.0-46.0); HGB 10.8 g/dL (11.2-15.7); Immature Grans % 3.2; Lymphocytes % 34.8; MCH 29.3 pg (27.0-33.0); MCHC 32.8 % (32.0-36.0); MCV 89 fL (80-95); MPV 9.4 fL (8.0-11.0); Monocytes % 7.1; Neutrophils % 52.2; Platelet Count 186 10^3/uL (130-400); RBC 3.69 10^6/uL (3.93-5.22); RDW 14.4 % (11.7-14.6); RDW-SD 45.8 fL; WBC 3.39 10^3/uL (4.4-10.8)
[2021-11-23 09:28] LABS: ALT 23 U/L (14-59); AST 33 U/L (15-37); Albumin 3.6 g/dL (3.4-5.0); Alkaline Phosphatase 52 U/L (46-116); Anion Gap 3.3 mmol/L (3-11); BUN 14 mg/dL (7-18); Bilirubin, Total 0.5 mg/dL (0.2-1.0); CO2 28.7 mmol/L (21.0-32.0); CREATININE 0.4 mg/dL (0.55-1.02); Chloride 102 mmol/L (98-107); Glucose 81 mg/dL (74-106); Potassium 3.7 mmol/L (3.5-5.1); Sodium 134 mmol/L (136-145); Total Protein 7.1 g/dL (6.4-8.2)
== END 2021-11-28 23:59 | disposition home or self-care (01) ==
LOC: INF 02:47
PROVIDERS: Internal Medicine Hematology & Oncology; PCP Internal Medicine; Visit Provider Internal Medicine Hematology & Oncology
DX: Z45.2 Encounter for adjustment and management of vascular access device (principal); C50.412 Malignant neoplasm of upper-outer quadrant of left female breast; Z17.0 Estrogen receptor positive status [ER+]; C79.51 Secondary malignant neoplasm of bone; C78.7 Secondary malignant neoplasm of liver and intrahepatic bile duct
CPT/HCPCS: 36591; 80053; 83735; 85025

== ENCOUNTER 2021-12-28 02:11 | Outpatient (RCR) | payer BC, SELFPAY ==
[2021-12-07] MEDS: Normal Saline Flush 10 ML SYR IVP (13:08)
[2021-12-07 13:16] LABS: Abs Immature Grans 0.02 10^3/uL (0.0-0.06); Absolute Basophil Count 0.02 10^3/uL (0.0-0.2); Absolute Eosinophil Count 0.01 10^3/uL (0.0-0.7); Absolute Lymphocyte Count 1.23 10^3/uL (1.2-3.4); Absolute Monocyte Count 0.67 10^3/uL (0.1-0.8); Absolute Neutrophil Count 1.82 10^3/uL (1.2-6.7); Basophils % 0.5; Eosinophils % 0.3; HGB 11.7 g/dL (11.2-15.7); Immature Grans % 0.5; Lymphocytes % 32.6; MCH 29.8 pg (27.0-33.0); MCHC 34.4 % (32.0-36.0); MCV 87 fL (80-95); Monocytes % 17.8; Neutrophils % 48.3; Platelet Count 231 10^3/uL (130-400); RBC 3.93 10^6/uL (3.93-5.22); RDW 14.6 % (11.7-14.6); RDW-SD 45.9 fL; WBC 3.77 10^3/uL (4.4-10.8)
[2021-12-07 13:30] LABS: ALT 21 U/L (14-59); AST 25 U/L (15-37); Albumin 3.8 g/dL (3.4-5.0); Alkaline Phosphatase 56 U/L (46-116); Anion Gap 6.6 mmol/L (3-11); BUN 13 mg/dL (7-18); Bilirubin, Total 0.5 mg/dL (0.2-1.0); CO2 27.4 mmol/L (21.0-32.0); CREATININE 0.5 mg/dL (0.55-1.02); Calcium 8.7 mg/dL (8.5-10.1); Chloride 102 mmol/L (98-107); Glucose 91 mg/dL (74-106); Magnesium 1.9 mg/dL (1.8-2.4); Sodium 136 mmol/L (136-145); Total Protein 7.4 g/dL (6.4-8.2)
[2021-12-14] MEDS: Normal Saline Flush 10 ML SYR IVP (13:50)
[2021-12-14 14:27] LABS: Abs Immature Grans 0.16 10^3/uL (0.0-0.06); Absolute Basophil Count 0.02 10^3/uL (0.0-0.2); Absolute Monocyte Count 0.24 10^3/uL (0.1-0.8); Absolute Neutrophil Count 2.88 10^3/uL (1.2-6.7); Basophils % 0.4; HCT 30.7 % (36.0-46.0); HGB 10.4 g/dL (11.2-15.7); Immature Grans % 3.4; Lymphocytes % 29.8; MCH 29.5 pg (27.0-33.0); MCHC 33.9 % (32.0-36.0); MCV 87 fL (80-95); MPV 10.3 fL (8.0-11.0); Monocytes % 5.1; Neutrophils % 61.3; Platelet Count 181 10^3/uL (130-400); RBC 3.53 10^6/uL (3.93-5.22); RDW 14.4 % (11.7-14.6); RDW-SD 45.5 fL
[2021-12-14 14:41] LABS: Diff Comment Agrees w/ Instrument; RBC Morphology Normal
[2021-12-14 14:52] LABS: ALT 25 U/L (14-59); AST 37 U/L (15-37); Albumin 3.7 g/dL (3.4-5.0); Alkaline Phosphatase 56 U/L (46-116); Anion Gap 7.4 mmol/L (3-11); BUN 10 mg/dL (7-18); Bilirubin, Total 0.5 mg/dL (0.2-1.0); CO2 27.6 mmol/L (21.0-32.0); CREATININE 0.4 mg/dL (0.55-1.02); Calcium 9.9 mg/dL (8.5-10.1); Chloride 104 mmol/L (98-107); Glucose 104 mg/dL (74-106); Potassium 3.9 mmol/L (3.5-5.1); Sodium 139 mmol/L (136-145); Total Protein 7.1 g/dL (6.4-8.2)
[2021-12-28 08:38] LABS: Abs Immature Grans 0.01 10^3/uL (0.0-0.06); Absolute Basophil Count 0.02 10^3/uL (0.0-0.2); Absolute Lymphocyte Count 0.95 10^3/uL (1.2-3.4); Absolute Monocyte Count 0.61 10^3/uL (0.1-0.8); Absolute Neutrophil Count 1.04 10^3/uL (1.2-6.7); Basophils % 0.8; HCT 33.3 % (36.0-46.0); HGB 11.2 g/dL (11.2-15.7); Immature Grans % 0.4; Lymphocytes % 36.1; MCH 29.6 pg (27.0-33.0); MCHC 33.6 % (32.0-36.0); MCV 88 fL (80-95); MPV 9.4 fL (8.0-11.0); Monocytes % 23.2; Neutrophils % 39.5; Platelet Count 237 10^3/uL (130-400); RBC 3.78 10^6/uL (3.93-5.22); RDW 14.6 % (11.7-14.6); RDW-SD 46.9 fL; WBC 2.63 10^3/uL (4.4-10.8)
[2021-12-28] MEDS: Normal Saline Flush 10 ML SYR IVP (08:42)
[2021-12-28 08:56] LABS: ALT 22 U/L (14-59); AST 30 U/L (15-37); Albumin 3.6 g/dL (3.4-5.0); Alkaline Phosphatase 50 U/L (46-116); Anion Gap 7.3 mmol/L (3-11); BUN 18 mg/dL (7-18); Bilirubin, Total 0.6 mg/dL (0.2-1.0); CO2 25.7 mmol/L (21.0-32.0); CREATININE 0.5 mg/dL (0.55-1.02); Calcium 9.2 mg/dL (8.5-10.1); Chloride 103 mmol/L (98-107); Glucose 81 mg/dL (74-106); Potassium 4.3 mmol/L (3.5-5.1); Sodium 136 mmol/L (136-145); Total Protein 7.1 g/dL (6.4-8.2)
[2021-12-29 18:34] LABS: Cancer Ag 15-3 48 U/mL (<30)
== END 2021-12-28 23:59 | disposition home or self-care (01) ==
LOC: INF 02:11
PROVIDERS: PCP Internal Medicine; Visit Provider Internal Medicine Hematology & Oncology
DX: Z45.2 Encounter for adjustment and management of vascular access device (principal); C50.412 Malignant neoplasm of upper-outer quadrant of left female breast; Z17.0 Estrogen receptor positive status [ER+]; C79.51 Secondary malignant neoplasm of bone; C78.7 Secondary malignant neoplasm of liver and intrahepatic bile duct
CPT/HCPCS: 36591; 80053; 86304; 83735; 85025; 86300

== ENCOUNTER 2022-01-04 02:42 | Outpatient (RCR) | payer BC, SELFPAY ==
[2022-01-04] MEDS: Normal Saline Flush 10 ML SYR IVP (13:35)
[2022-01-04 14:03] LABS: Abs Immature Grans 0.22 10^3/uL (0.0-0.06); Absolute Basophil Count 0.02 10^3/uL (0.0-0.2); Absolute Lymphocyte Count 1.33 10^3/uL (1.2-3.4); Absolute Monocyte Count 0.22 10^3/uL (0.1-0.8); Absolute Neutrophil Count 2.62 10^3/uL (1.2-6.7); Basophils % 0.5; HGB 10.7 g/dL (11.2-15.7); Lymphocytes % 30.2; MCH 29.1 pg (27.0-33.0); MCHC 33.4 % (32.0-36.0); MCV 87 fL (80-95); MPV 9.7 fL (8.0-11.0); Neutrophils % 59.3; Platelet Count 192 10^3/uL (130-400); RBC 3.68 10^6/uL (3.93-5.22); RDW 14.4 % (11.7-14.6); RDW-SD 45.3 fL; WBC 4.41 10^3/uL (4.4-10.8)
[2022-01-04 14:12] LABS: ALT 25 U/L (14-59); AST 31 U/L (15-37); Albumin 3.8 g/dL (3.4-5.0); Alkaline Phosphatase 55 U/L (46-116); Anion Gap 7.1 mmol/L (3-11); BUN 14 mg/dL (7-18); Bilirubin, Total 0.5 mg/dL (0.2-1.0); CO2 26.9 mmol/L (21.0-32.0); CREATININE 0.5 mg/dL (0.55-1.02); Calcium 9.5 mg/dL (8.5-10.1); Chloride 100 mmol/L (98-107); Glucose 102 mg/dL (74-106); Magnesium 1.9 mg/dL (1.8-2.4); Potassium 3.7 mmol/L (3.5-5.1); Sodium 134 mmol/L (136-145); Total Protein 7.3 g/dL (6.4-8.2)
[2022-01-04 14:38] LABS: Diff Comment Agrees w/ Instrument
== END 2022-01-28 23:59 | disposition home or self-care (01) ==
LOC: INF 02:42
PROVIDERS: PCP Internal Medicine; Visit Provider Internal Medicine Hematology & Oncology
DX: C50.412 Malignant neoplasm of upper-outer quadrant of left female breast (principal); Z17.0 Estrogen receptor positive status [ER+]; Z45.2 Encounter for adjustment and management of vascular access device
CPT/HCPCS: 36591; 80053; 83735; 85025

== ENCOUNTER 2022-01-08 18:53 | Observation (INO) | payer BC, SELFPAY ==
--- NOTE | 2022-01-08 19:00 | RT.EKG_ITS ---
APPROVED REPORT Exam: Resting ECG Reason for Exam: pain all over Patient Location: E HR:87 bpm ECG Measurements Heart Rate 87 AXIS WA 170 P 70 QRSd 92 QRS 27 QT 363 T 41 QTc 436 Conclusion Sinus rhythm...normal P axis, V-rate 60- 99 Consider left ventricular hypertrophy...(S V1+R V5/V6) >3.25mV
[2022-01-08 19:01] VITALS: BP 125/85; PULSE 98; RESP 18; TEMP 37.7; O2SAT 96
[2022-01-08] MEDS: HYDROmorphone 2 MG/ML VIAL 1 MG IVP (20:16)
[2022-01-08 20:18] LABS: Lactate 0.7 mmol/L (0.6-1.4)
[2022-01-08 20:18] LABS: Source Nasal/Nares
[2022-01-08 20:19] LABS: Abs Immature Grans 0.01 10^3/uL (0.0-0.06); Absolute Basophil Count 0.01 10^3/uL (0.0-0.2); Absolute Lymphocyte Count 0.38 10^3/uL (1.2-3.4); Absolute Monocyte Count 0.12 10^3/uL (0.1-0.8); Absolute Neutrophil Count 2.29 10^3/uL (1.2-6.7); Basophils % 0.4; HCT 31.2 % (36.0-46.0); Immature Grans % 0.4; Lymphocytes % 13.5; MCH 29.9 pg (27.0-33.0); MCHC 35.3 % (32.0-36.0); MCV 85 fL (80-95); MPV 9.8 fL (8.0-11.0); Monocytes % 4.3; Neutrophils % 81.4; Platelet Count 171 10^3/uL (130-400); RBC 3.68 10^6/uL (3.93-5.22); RDW 14.3 % (11.7-14.6); WBC 2.81 10^3/uL (4.4-10.8)
--- NOTE | 2022-01-08 20:27 | ED.GENADUL_ITS ---
Discharge Plan Disposition Patient Disposition: [facility] INPATIENT Condition: Stable Discharge Details Clinical Impression: Acute febrile illness, Cardiac murmur, Hyponatremia Admit Date/Time: 01/09/22 00:08 Admit Provider: Nhan Jang Attending Provider: Nhan Jang Primary Care Provider: Beryl Coronado ED Provider: Loco Palomo Discharge Data Discharge Date/Time-TO BE ENTERED AT DEPARTURE: 01/09/22 01:13 Medical Decision Making 2030 --61-year-old female with history of metastatic breast cancer stage IV, here with severe myalgias, arthralgias, headache, fatigue with decreased p.o. intake. Patient is actively on chemotherapy. Patient tachycardic and febrile, normotensive on arrival. No meningeal signs. Patient does have new murmur on examination. Concern for neutropenic fever versus bacteremia versus medication reaction versus other. Consider covid. Screening EKG was reviewed and interpreted by me: Please see report, sinus rhythm 87 bpm, normal axis, LVH. Patient does have subtle murmur left sternal border. -- Patient was given dilaudid 1mg IV for pain and reassessed and pain much improved. -- Patient dry heaving, requesting zofran. Zofran 4mg IV administered. 2111 -- Initial labs reviewed - absolute neutrophils normal. Hyponatremia noted. Covid, UA and cxr pending. --Chest x-ray was interpreted by radiology, no evidence of acute pathology. Flattening of bilateral hemidiaphragms likely COPD changes. Urinalysis reviewed and negative. 4 --I spoke with Dr. Garnica, on-call oncologist at [facility] [place], discussed ED presentation course, she does not feel presentation consistent with chemo r eaction. She recommends working up for infectious etiology. Consider acute endocarditis given murmur and immunocompromise state with febrile illness. I will initiate treatment with vancomycin and ceftriaxone and plan for admission with echocardiogram to be performed as soon as possible. Total of 3 sets of blood cultures drawn. 1 set was drawn from port. 2331 -- I spoke with Dr. Jang, discussed ED presentation and course. He will admit the patient. HPI General Mode of arrival: ambulatory . Date/Time Provider Initiated Documentation: 01/08/22 19:07 . Limitations to Documentation: no limitations . Information obtained by: patient and family . HPI Narrative: 61-year-old female with history of metastatic breast cancer, currently on chemotherapy, here with diffuse full body pain. Patient notes she has been fatigued for the past couple days. Today she has had progressive severe arthralgias and myalgias as well as headache. Patient notes she hurts all over. Symptoms of been constant with no modifiers. No associated cough. No rash. No significant abdominal pain. No dysuria. Related Data Home Medications Medication Instructions Recorded Confirmed calcium carb-ergocalciferol (vit 1 tab PO DAILY 09/11/21 01/09/22 D2) 600 mg calcium-200 unit tablet denosumab 120 mg/1.7 mL (70 mg/mL) 120 mg subcut [id number] 01/09/22 01/09/22 subcutaneous solution eribulin 1 mg/2 mL (0.5 mg/mL) 1.7 mg IV QWEEK 01/09/22 01/09/22 intravenous solution ondansetron HCl 4 mg tablet 4 mg PO ONCE Infusion 01/09/22 01/09/22 amoxicillin 875 mg-potassium 1 tab PO BID #10 tabs 01/10/22 clavulanate 125 mg tablet doxycycline hyclate 100 mg capsule 100 mg PO BID #20 caps 01/10/22 hydromorphone 2 mg tablet 2 mg PO Q4H PRN #20 tabs 01/10/22 (Dilaudid) lubiprostone 24 mcg capsule 24 mcg PO BID #20 caps 01/10/22 promethazine 25 mg tablet 25 mg PO Q6H PRN #20 tabs 01/10/22 Previous Rx's Medication Instructions Recorded amoxicillin 875 mg-potassium 1 tab PO BID #10 tabs 01/10/22 clavulanate 125 mg tablet doxycycline hyclate 100 mg capsule 100 mg PO BID #20 caps 01/10/22 hydromorphone 2 mg tablet 2 mg PO Q4H PRN #20 tabs 01/10/22 (Dilaudid) lubiprostone 24 mcg capsule 24 mcg PO BID #20 caps 01/10/22 promethazine 25 mg tablet 25 mg PO Q6H PRN #20 tabs 01/10/22 Allergies Allergy/AdvReac Type Severity Reaction Status Date / Time prochlorperazine Allergy Unverified 09/11/21 10:53 [From Compazine] taxol Allergy Uncoded 09/11/21 10:53 General Stated Complaint: GenMedical NETTIE: 3 Review of Systems All systems reviewed & are unremarkable except as noted in HPI and below Constitutional Constitutional: Reports anorexia, Reports body ache(s) and Reports headache(s) ENT Ears, Nose, Mouth, and Throat: Reports headache(s) Musculoskeletal Musculoskeletal: Reports as per HPI Neurologic Neurologic: Reports headache(s) PFSH All Active Problems Chemotherapy adverse reaction (Acute) Metastatic breast cancer (Acute) Acute febrile illness (Acute) Cardiac murmur (Acute) Hyponatremia (Acute) Medical History Metastatic breast cancer Surgical History H/O left mastectomy History of hysterectomy History of knee replacement Social History Smoking/Tobacco Use Status: Never Smoking risk assessment performed?: Yes Alcohol Intake: never Drug use: Daily Substance use type: marijuana Details: Medical Marijuana used at night to help with sleep Do you feel safe at home: Yes Do you feel safe in your relationship?: Yes Exam Const General: cooperative and no acute distress HENMT Mouth: moist mucous membranes Eyes Conjunctivae: normal conjunctivae Sclera: normal sclerae EOM: EOM intact bilaterally Neck Neck: full ROM and no meningeal signs Resp Auscultation: clear to auscultation bilaterally, no rales, no rhonchi and no wheezes Cardio Rate: regular rate and not tachycardic Rhythm: regular rhythm Heart Sounds: murmur systolic I/ and at the left sternal border GI Palpation: soft, not firm, no guarding, no masses, not rigid and nontender Skin General skin exam: no rashes or lesions noted Neuro General: patient alert, patient awake, patient oriented x3, tone normal and no meningeal signs Cognition: normal cognition Extrem General: no edema Psych Appearance: grossly normal Mental Status: mental status grossly normal Speech and Movement: speech and movement normal Course Vital Signs Vital signs: Vital Signs Temperature 37.7 C H 01/08/22 19:01 Pulse 98 H 01/08/22 19:01 Respiratory Rate 18 01/08/22 19:01 Blood Pressure 125/85 01/08/22 19:01 Pulse Oximetry 96 01/08/22 19:01 Temperature 37.7 C H 01/08/22 19:01 Temperature Source Temporal Artery Scan 01/08/22 19:01 Pulse 98 H 01/08/22 19:01 Respiratory Rate 18 01/08/22 19:01 Blood Pressure 125/85 01/08/22 19:01 Blood Pressure Position Sitting 01/08/22 19:01 Pulse Oximetry 96 01/08/22 19:01 Oxygen Delivery Method Room Air 01/08/22 19:01 Oxygen Flow Rate 0 01/08/22 19:01 Lab/Test Results Lab/Test Results: 01/08/22 20:05 Blood Blood Culture - Pending 01/08/22 20:05 Blood Blood Culture - Pending Laboratory Tests Range/Units 01/08/22 01/08/22 01/08/22 20:05 20:05 20:08 WBC (4.4-10.8) 10^3/uL 2.81 L RBC (3.93-5.22) 10^6/uL 3.68 L Hgb (11.2-15.7) g/dL 11.0 L Hct (36.0-46.0) % 31.2 L MCV (80-95) fL 85 MCH (27.0-33.0) pg 29.9 MCHC (32.0-36.0) % 35.3 RDW (11.7-14.6) % 14.3 Plt Count (130-400) 10^3/uL 171 MPV (8.0-11.0) fL 9.8 Immature Gran % 0.4 Neutrophils % 81.4 Lymphocytes % 13.5 Monocytes % 4.3 Eosinophils % 0.0 Basophils % 0.4 Nucleated RBC % (0.0-0.3) % 0.0 Absolute Neutrophils (1.2-6.7) 10^3/uL 2.29 Absolute Lymphocytes (1.2-3.4) 10^3/uL 0.38 L Absolute Monocytes (0.1-0.8) 10^3/uL 0.12 Absolute Eosinophils (0.0-0.7) 10^3/uL 0.00 Absolute Basophils (0.0-0.2) 10^3/uL 0.01 VBG Lactate (0.6-1.4) mmol/L 0.7 COVID-19 Source Nasal/Nares
[2022-01-08 20:35] LABS: ALT 22 U/L (14-59); AST 34 U/L (15-37); Albumin 3.5 g/dL (3.4-5.0); Alkaline Phosphatase 49 U/L (46-116); Anion Gap 8.3 mmol/L (3-11); BUN 15 mg/dL (7-18); Bilirubin, Total 1.1 mg/dL (0.2-1.0); CO2 24.7 mmol/L (21.0-32.0); CREATININE 0.4 mg/dL (0.55-1.02); Calcium 8.7 mg/dL (8.5-10.1); Chloride 97 mmol/L (98-107); Glucose 123 mg/dL (74-106); Potassium 3.5 mmol/L (3.5-5.1); Sodium 130 mmol/L (136-145)
[2022-01-08 20:42] LABS: Creatine Kinase 82 U/L (26-192); Magnesium 1.8 mg/dL (1.8-2.4); Troponin I < 50 ng/L (<or=60)
--- NOTE | 2022-01-08 20:45 | DI.RAD_ITS ---
Exam(s) XR PORTABLE CHEST AP EXAM: XR PORTABLE CHEST AP CLINICAL HISTORY: fever TECHNIQUE: 2D digital imaging was performed of the chest. Two images were obtained. AP views were obtained. COMPARISON: CR XR PORTABLE CHEST AP from 09/11/2021 FINDINGS: MEDIASTINUM: Normal. HEART: Normal. PULMONARY VASCULATURE: Normal. LUNGS: Clear. The lungs appear hyperinflated suggesting underlying COPD. PLEURAL SPACE: No pleural effusion or pneumothorax. BONE:Within normal limits for the patient's age. OTHER FINDINGS:The tip of the indwelling central venous catheter is in good position in the superior vena cava. IMPRESSION: No acute pulmonary findings. DATA REPOSITORY: RADIATION DOSE DELIVERED:
[2022-01-08] MEDS: Lactated Ringers 500 ML 1000 ML IV (21:06)
[2022-01-08] MEDS: Ondansetron 4 MG/2 ML VIAL IVP (21:07)
[2022-01-08 21:17] LABS: COVID-19 PCR Negative (Negative)
[2022-01-08 21:53] LABS: Bilirubin Negative (Negative); Blood Negative (Negative); Clarity Clear (Clear); Glucose Negative (Negative); Ketones 40 mg/dL (Negative); Leukocyte Esterase Negative (Negative); Nitrite Negative (Negative); Specific Gravity 1.025 (1.005-1.025); Urobilinogen 0.2 EU/dL (Up TO 0.2)
[2022-01-08 22:00] VITALS: BP 121/60; TEMP 36.9; O2SAT 98
--- NOTE | 2022-01-08 22:18 | DI.VRAD_ITS ---
PROCEDURE INFORMATION: Exam: XR Chest Exam date and time: 01/08/2022 8:57 PM Age: 61 years old Clinical indication: Fever; Prior surgery; Surgery date: 6+ months; Surgery type: Port placed TECHNIQUE: Imaging protocol: Radiologic exam of the chest. Views: 1 view. COMPARISON: CR XR PORTABLE CHEST AP 09/11/2021 11:43 AM FINDINGS: Tubes, catheters and devices: Anterior chest wall subcutaneous port with catheter in SVC. Lungs: Flattening of bilateral hemidiaphragms likely COPD changes. No infiltrates. No mass lesion or nodule seen. Pleural spaces: No pneumothorax. No pleural effusion. Heart/Mediastinum: Unremarkable. No cardiomegaly. Bones/joints: Unremarkable. IMPRESSION: 1. No evidence of acute pathology. 2. Flattening of bilateral hemidiaphragms likely COPD changes. Dictated and Authenticated by: Christin Sharpe MD. Ordering:SLIM Adan MD
--- NOTE | 2022-01-08 23:54 | HPE_ITS ---
Date of service: 01/08/22 Time of Service: 23:54 Assessment and Plan Assessment and plan (1) Acute febrile illness: Status: Acute Assessment and plan: Acute febrile illness. Apparently new murmur raises question SBE and I think it reasonable to continue antibiotics pending further w/u and culture results. Also, r/o false negative COVID, or influenza, and would also check tick panel. Plan: Vanco/Rocephin, await cultures, ECHO, add Flu testing, add tick panel, consider repeat COVID in three days History of Present Illness History of Present Illness Chief Complaint: fever, myalgias Narrative: 61 female with stage IV breast cancer, s/p left MRM, undergoing chemotherapy -- here with one day of diffuse myalgias, headache and temp to 99.9. No similar illness at home. In ER findings of note for white count 2.8 with ANC 2300, negative CXR and urinalysis -- and new heart murmur (or at any rate newly documented and unknown to patient). Blood cultures x3 obtained and patient started on Vanco/Rocephin for possible SBE. COVID was negative. I was asked to evaluate for admission. Patient states she does have chronic bone pain from metastatic disease, but this is more focal and unlike what she experienced today. Review of Systems Narrative: per HPI PFSH All Active Problems Chemotherapy adverse reaction (Acute) Metastatic breast cancer (Acute) Acute febrile illness (Acute) Cardiac murmur (Acute) Hyponatremia (Acute) Medical History Metastatic breast cancer Surgical History H/O left mastectomy History of hysterectomy History of knee replacement Social History Smoking/Tobacco Use Status: Never Smoking risk assessment performed?: Yes Alcohol Intake: never Drug use: Daily Substance use type: marijuana Details: Medical Marijuana used at night to help with sleep Do you feel safe at home: Yes Do you feel safe in your relationship?: Yes Meds Allergies and Home Medications Allergies Allergy/AdvReac Type Severity Reaction Status Date / Time prochlorperazine Allergy Unverified 09/11/21 10:53 [From Compazine] taxol Allergy Uncoded 09/11/21 10:53 Home Medications Medication Instructions Recorded Confirmed Type amoxicillin 875 mg-potassium 1 tab PO BID #10 tabs 09/11/21 Rx clavulanate 125 mg tablet calcium carb-ergocalciferol (vit 1 tab PO DAILY 09/11/21 09/11/21 History D2) 600 mg calcium-200 unit tablet doxycycline hyclate 100 mg capsule 100 mg PO BID #10 caps 09/11/21 Rx Exam Narrative Exam Narrative: 121/60, 98, 36.9 (237.7 max), 18, 98% RA. HEENT atraumatic; neck supple; lungs clear; heart RRR with 1/6 systolic mumur LUSB; abdomen soft and [place] w/o HSM; extremities w/o edema; neuro Ox3, lucid, moves all 4s, skin no stigmata SBE, p ort site right upper chest w/o erythema Results Labs Result diagrams: 01/08/22 20:05 01/08/22 20:05 Labs: Laboratory Results - last 24 hr 01/08/22 01/08/22 01/08/22 20:05 20:05 20:05 WBC 2.81 L RBC 3.68 L Hgb 11.0 L Hct 31.2 L MCV 85 MCH 29.9 MCHC 35.3 RDW 14.3 Plt Count 171 MPV 9.8 Immature Gran % 0.4 Neutrophils % 81.4 Lymphocytes % 13.5 Monocytes % 4.3 Eosinophils % 0.0 Basophils % 0.4 Nucleated RBC % 0.0 Absolute Neutrophils 2.29 Absolute Lymphocytes 0.38 L Absolute Monocytes 0.12 Absolute Eosinophils 0.00 Absolute Basophils 0.01 VBG Lactate Sodium 130 L Potassium 3.5 Chloride 97 L Carbon Dioxide 24.7 Anion Gap 8.3 BUN 15 Creatinine 0.4 L Estimated GFR/1.73 m2 >= 60.00 Glucose 123 H Calcium 8.7 Magnesium 1.8 Total Bilirubin 1.1 H AST 34 ALT 22 Alkaline Phosphatase 49 Creatine Kinase 82 Troponin I < 50 Total Protein 7.0 Albumin 3.5 Urine Color Urine Clarity Urine pH Ur Specific Sims Urine Protein Urine Ketones Urine Blood Urine Nitrite Urine Bilirubin Urine Urobilinogen Ur Leukocyte Esterase Urine Glucose COVID-19 Source SARS-CoV-2 (PCR) 07/05/2201/08/22 01/08/22 20:05 20:08 21:50 WBC RBC Hgb Hct MCV MCH MCHC RDW Plt Count MPV Immature Gran % Neutrophils % Lymphocytes % Monocytes % Eosinophils % Basophils % Nucleated RBC % Absolute Neutrophils Absolute Lymphocytes Absolute Monocytes Absolute Eosinophils Absolute Basophils VBG Lactate 0.7 Sodium Potassium Chloride Carbon Dioxide Anion Gap BUN Creatinine Estimated GFR/1.73 m2 Glucose Calcium Magnesium Total Bilirubin AST ALT Alkaline Phosphatase Creatine Kinase Troponin I Total Protein Albumin Urine Color Yellow Urine Clarity Clear Urine pH 7.0 Ur Specific Sims 1.025 Urine Protein Negative Urine Ketones 40 H Urine Blood Negative Urine Nitrite Negative Urine Bilirubin Negative Urine Urobilinogen 0.2 Ur Leukocyte Esterase Negative Urine Glucose Negative COVID-19 Source Nasal/Nares SARS-CoV-2 (PCR) Negative Last Vital Signs Temp 36.9 C 01/08/22 22:00 Pulse 98 H 01/08/22 19:01 Resp 18 01/08/22 19:01 BP 121/60 01/08/22 22:00 Pulse Ox 98 01/08/22 22:00
--- NOTE | 2022-01-09 | DI.US_ITS ---
APPROVED REPORT EXAM: Comprehensive 2D, Doppler, and color-flow Echocardiogram Patient Location: In-Patient Room/Bed: 218 Nurse Orthopedic: Qian Echeverria RDCS (AE) Indications: Fever, New heart murmur, breast Cancer Other Information Study Quality: Good Conclusion Normal left ventricular chamber size and wall thickness. Estimated ejection fraction is 65%. Wall m otion is normal Normal right ventricular size and systolic function Both atria are normal in size Trileaflet aortic valve without stenosis or regurgitation There is mild mitral valve prolapse with mild to moderate regurgitation Normal tricuspid valve with mild regurgitation. Estimated right ventricular systolic pressure is 26 mmHg Wall motion Left Ventricle The left ventricle is normal size. The left ventricular systolic function is normal. The left ventric ular ejection fraction is within the normal range. There is normal left ventricular wall thickness. T here is normal LV segmental wall motion. There is no ventricular septal defect visualized. LVEF is 65 %. Right Ventricle The right ventricle is normal size. The right ventricular systolic function is normal. The RVSP is 26 .0mmHg. Atria The left atrium size is normal. The right atrium size is normal. The interatrial septum is intact wit h no evidence for an atrial septal defect. Aortic Valve The aortic valve is normal in structure. Aortic valve is trileaflet. There is no aortic valvular sten osis. No aortic regurgitation is present. Mitral Valve The mitral valve is normal in structure. No evidence of mitral valve stenosis. Mild to moderate yaritza l regurgitation. Mild mitral valve prolapse. Tricuspid Valve The tricuspid valve is normal in structure. There is no tricuspid valve stenosis. Mild tricuspid regu rgitation. Pulmonic Valve The pulmonary valve is normal in structure. There is no pulmonic valvular stenosis. Mild pulmonic reg urgitation. Great Vessels The aortic root is normal in size. The ascending aorta is normal in size. Aortic arch is normal in ca liber. IVC is normal in size and collapses >50% with inspiration. Pericardium There is no pericardial effusion. 2D Dimensions IVSD d PLAX 0.89 cm F: 0.6-1.0 LV Vol A2C d MOD 76.5 mL LVPW d PLAX 0.89 cm F: 0.6 - 1.0 LV Vol A4C d MOD 68.7 mL LVID d PLAX 4.17 cm F: 3.8 - 5.2 LA vol/ BSA A2C s A-L 17.2 mL/m2 LVDs 2.75 cm F: 2.2 - 3.5 LA vol/ BSA A4C s A-L 21.1 mL/m2 Ao Root d 2.88 cm F: 2.7 - 3.3 LA Vol/ BSA Biplane s A-L 19.4 mL/m2 RA Area A4C 12.51 cm2 LA Area A4C s MOD 13.04 cm2 RA Vol/ BSA A4C s A-L 19.8 mL/m2 LA Area A2C s MOD 11.98 cm2 Ao Asc Diam d 2.90 cm F: 2.3 - 3.1 LV EF A4C MOD 65.4 % LV EF Teichholz 62.6 % LV EF A2C MOD 65.6 % LVEF (Rodriguez's) 64.49 % F: 54 - 74 LV EF Biplane MOD 64.5 % LV Volume 59.06 mL F: 46 - 106 SV 46.97 mL LV Volume Index 36.68 mL/m2 F: 29 - 61 SV Index 29.20 mL/m2 LV Vol Biplane MOD 72.8 mL FS 33.45 % M-Mode TAPSE 1.95 cm (M/F) >1.7 LV Diastology MV E' medial 0.108 (>0.07 m/s) E/A Ratio 1.5 LV E/e MED 9.65 (<14) MV E Vmax 1.04 (0.4-1.3 m/s) MV E' lateral 0.120 (>0.1 m/s) MV A Vmax 0.70 (0.4-1.3 m/s) LV E/e LAT 8.65 (<14) MV E/A Ratio 1.40 MV E/E' medial 9.65 MV E/E' lateral 8.67 Aortic Valve LVOT Area 3.04 cm2 AoV Area Vmax 2.62 cm2 LVOT Vmax 1.01 m/s AoV Area/ BSA (Vmax) 1.63 cm2/m2 LVOT Mean Jaquan. 0.65 m/s MICHAEL Mean Jaquan. 2.51 cm2 LVOT Peak Grad 4.1 mmHg MICHAEL Mean Jaquan. Index 1.56 cm2/m2 LVOT Mean Grad 2.0 mmHg LVOT VTI 0.228 m LVOT Diam s 1.95 cm AoV Vmax 1.18 m/s Velocity Ratio 0.85 AoV Mean Jaquan. 0.78 m/s AoV Peak Grad 5.5 mmHg LVOT SV 69.32 mL AoV Mean Grad 2.8 mmHg AoV VTI 0.267 m AoV Area VTI 2.59 cm2 AoV Area/ BSA (VTI) 1.61 cm/m2 Mitral Valve MV DT 184 (160-240 msec) MR Vmax 5.50 m/s MV PHT 53 msec MR VTI 2.017 m MV Area PHT 4.11 cm2 MR Peak Grad 121.0 mmHg MV VTI 0.384 m MR Mean Grad 86.9 mmHg MV VTI Annulus 0.391 m MR PISA Radius 0.52 cm MV Area VTI 1.84 (4.0-6.0 cm2) MR EROA 0.11 cm2 MR Aliasing Velocity 0.35 m/s MR PISA 1.70 cm2 Pulmonary Valve PV Vmax 0.96 (0.5-1.5 m/s) RVOT Peak Gr. 2.01 mmHg PV Peak Grad 3.7 mmHg RVOT Mean Gr. 1.05 mmHg PV Mean Grad 2.2 mmHg RVOT VTI 0.165 m PV VTI 0.219 m RVOT Vmax 0.71 m/s Tricuspid Valve TR Peak Grad 22.9 mmHg TR Vmax 2.40 m/s RA Pressure 3.00 mmHg RVSP (TR) 26.0 mmHg
[2022-01-09 01:22] VITALS: BP 117/65; PULSE 77; RESP 16; TEMP 36.8; O2SAT 98
[2022-01-09] MEDS: Ondansetron 4 MG/2 ML VIAL IVP ×2 (01:48→07:33)
[2022-01-09] MEDS: Normal Saline Flush 10 ML SYR IVP ×4 (01:48→19:38)
[2022-01-09] MEDS: Lactated Ringers 1,000 ML 100 ML IV ×2 (01:48→14:07)
[2022-01-09] MEDS: VANCOMYCIN 1,500 MG in Normal Saline 250 ML 166.6666 MG IVPB (02:15)
[2022-01-09] MEDS: HYDROmorphone 2 MG/ML SYR 1 MG IVP ×4 (02:54→19:38)
[2022-01-09 07:20] VITALS: BP 119/67; PULSE 72; RESP 16; TEMP 36.6; O2SAT 98
[2022-01-09] MEDS: VANCOMYCIN/WATER (PEG) 1 GM/200 ML BAG IV (14:22)
[2022-01-09 15:31] VITALS: BP 106/50; PULSE 74; RESP 18; TEMP 37.3; O2SAT 98
--- NOTE | 2022-01-09 16:20 | PDOC.CMIN ---
- If Service Date Differs Date of service: 01/09/22 Time of Service: 16:20 Care Management Initial Assess REASON FOR HOSPITALIZATION:: Fever; unmanageable pain related to Stage 4 CA PAST MEDICAL HISTORY/PAST SURGICAL HISTORY:: Chemotherapy adverse reaction (Acute). Metastatic breast cancer (Acute). Acute febrile illness (Acute). Cardiac murmur (Acute). Hyponatremia (Acute). Medical History . Metastatic breast cancer. Surgical History . H/O left mastectomy. History of hysterectomy. History of knee replacement PREVIOUS FUNCTIONAL STATUS/SOCIAL/FAMILY SUPPORTS:: Res[place] in [place] with , Gary. Is battling stage 4 metastatic breast cancer and reports increased weakness. CURRENT FUNCTIONAL STATUS:: Tin is lying in bed, gracious in interaction, she shares appreciation for her care and the nursing staff and reports her pain is now much better managed than prior to admission. Her , Gary is at her bedside, and both are pleasant in interaction. ADVANCE DIRECTIVES:: None on file. Has patient been provided with info about the portal/API?: Yes Did the patient sign up for the portal?: Yes (Previously ) CODE STATUS:: Full Code INSURANCE COVERAGE / FINANCIAL ISSUES:: [employer] CURRENT HOME/COMMUNITY SERVICES/EQUIPMENT:: [facility] PRIMARY CARE PHYSICIAN:: Beryl Coronado POTENTIAL DISCHARGE NEEDS:: Follow up appointments. PATIENT/FAMILY EDUCATION NEEDS:: Review discharge instructions, discuss Ask Me Three. ANTICIPATED BARRIERS TO DISCHARGE:: None identified at this time. TRANSPORTATION:: Via private vehicle with . PLAN:: Tin will return home when ready per MD. She will follow up with her PCP and plan of care as prescribed. She will transport via private vehicle with her , Gary.
--- NOTE | 2022-01-09 17:31 | CHAPLAIN ---
Joanna Garcia is being treated for breast cancer and is here for pain management, which has worked, she said. Her and daughter are her supports. Her was in to visit earlier today. I explained my role and offered support.
[2022-01-09] MEDS: cefTRIAXone 2 GM/50 ML BAG IVPB (22:09)
[2022-01-09 23:45] VITALS: BP 110/55; PULSE 75; RESP 18; TEMP 36.8; O2SAT 98
[2022-01-10] MEDS: HYDROmorphone 2 MG/ML SYR 1 MG IVP ×3 (01:45→13:09)
[2022-01-10] MEDS: VANCOMYCIN/WATER (PEG) 1 GM/200 ML BAG IV (01:45)
[2022-01-10] MEDS: Normal Saline Flush 10 ML SYR IVP ×4 (01:46→13:36)
[2022-01-10 02:58] VITALS: TEMP 37.1
[2022-01-10 07:57] VITALS: BP 109/67; PULSE 64; RESP 18; TEMP 37.2; O2SAT 96
--- NOTE | 2022-01-10 10:03 | W.PM.PROGNOT ---
Date of Service Date of service: 01/09/22 Time of Service: 10:00 Assessment and Plan Assessment and plan (1) Acute febrile illness: Status: Acute Assessment and plan: continue Vanco/Rocephin, await cultures, ECHO unremarkable, pending tick panel, consider repeat COVID in three days discussed with DR Valencia Subjective Subjective Patient reports: no new complaints, tolerating liquids well, tolerating a regular diet and afebrile; denies voiding w/o difficulty or shortness of breath Exam Const General: cooperative and no acute distress HENMT Mouth: moist mucous membranes Eyes Conjunctivae: normal conjunctivae Sclera: normal sclerae EOM: EOM intact bilaterally Neck Neck: full ROM and no meningeal signs Resp Auscultation: clear to auscultation bilaterally and diminished lung sounds (bases) bilaterally Cardio Rate: regular rate Rhythm: regular rhythm Heart Sounds: murmur GI Palpation: soft, not firm, no guarding, no masses, not rigid and nontender Skin General skin exam: no rashes or lesions noted Neuro General: patient alert, patient awake, patient oriented x3, tone normal and no meningeal signs Cognition: normal cognition Extrem General: no edema Psych Appearance: grossly normal Mental Status: mental status grossly normal Speech and Movement: speech and movement normal Objective Last Vital Signs Temp 37.2 C 01/10/22 07:57 Pulse 64 01/10/22 07:57 Resp 18 01/10/22 07:57 BP 109/67 01/10/22 07:57 Pulse Ox 96 01/10/22 07:57
[2022-01-10] MEDS: Lactated Ringers 1,000 ML 100 ML IV (10:17)
[2022-01-10 10:27] LABS: Abs Immature Grans 0.03 10^3/uL (0.0-0.06); Absolute Basophil Count 0.03 10^3/uL (0.0-0.2); Absolute Lymphocyte Count 0.57 10^3/uL (1.2-3.4); Absolute Monocyte Count 0.18 10^3/uL (0.1-0.8); Absolute Neutrophil Count 0.84 10^3/uL (1.2-6.7); Basophils % 1.8; HCT 26.8 % (36.0-46.0); HGB 9.4 g/dL (11.2-15.7); Immature Grans % 1.8; Lymphocytes % 34.5; MCH 29.7 pg (27.0-33.0); MCHC 35.1 % (32.0-36.0); MCV 85 fL (80-95); MPV 9.5 fL (8.0-11.0); Monocytes % 10.9; RBC 3.16 10^6/uL (3.93-5.22); RDW 14.2 % (11.7-14.6); RDW-SD 43.7 fL
[2022-01-10 10:38] LABS: Anion Gap 4.7 mmol/L (3-11); BUN 12 mg/dL (7-18); CO2 28.3 mmol/L (21.0-32.0); CREATININE 0.4 mg/dL (0.55-1.02); Chloride 100 mmol/L (98-107); Glucose 97 mg/dL (74-106); Potassium 3.4 mmol/L (3.5-5.1); Sodium 133 mmol/L (136-145)
[2022-01-10 10:49] LABS: WBC 1.65 10^3/uL (4.4-10.8)
[2022-01-10 10:55] LABS: Diff Comment Agrees w/ Instrument; Hypochromasia 1+; Platelet Count 135 10^3/uL (130-400)
[2022-01-10 11:13] LABS: Lyme Ab w Rflx to Lyme Confirm Positive (Negative)
--- NOTE | 2022-01-10 11:17 | DSE_ITS ---
Date of service: 01/10/22 Time of Service: 11:17 DS: Diagnosis Discharge Diagnosis (1) Acute febrile illness: Status: Acute Discharge Plan Disposition Patient Disposition: HOME Condition: Stable Discharge Details Reason For Visit: Fever Admit Date/Time: 01/09/22 00:08 Admit Provider: Nhan Jang Attending Provider: Nhan Jang Primary Care Provider: Beryl Coronado Hospital Course Hospital Course: This is a 61 year old female with stage IV breast cancer, s/p left MRM, undergoing chemotherapy -- came in to ED with one day of diffuse myalgias, headache and temp to 99.9. No similar illness at home. In the ED findings of note for white count 2.8 with ANC 2300, negative CXR and urinalysis -- and new heart murmur (or at any rate newly documented and unknown to patient). Blood cultures x3 obtained and patient started on Vanco/Rocephin for possible endocarditis. COVID was negative. She was referred to observation. she remained afebrile, continued to have intermittent nausea which responded to medication, and had no abdominal pain. Her echo was unremarkable and blood cultures remained negative. no source of fever identified. Her lyme antibody did come back positive, rest of panel pending. We will discharge her home on augmentin and doxycycline while awaiting final reports. She has required dilaudid for her cancer pain, which is well managed. I will give her a script for lubiprostone to prevent opioid induced constipation as she reports constipation has been an issue with its use. She is stable for discharge to home with no services. she will f/u with her outpatient team. discussed with dr hutson. Home Meds and New Rx's Prescriptions: New promethazine 25 mg tablet 25 mg PO Q6H PRNQty: 20 0RF hydromorphone [Dilaudid] 2 mg tablet 2 mg PO Q4H PRNQty: 20 0RF lubiprostone 24 mcg capsule 24 mcg PO BID Qty: 20 0RF amoxicillin-pot clavulanate 875-125 mg tablet 1 tab PO BID Qty: 10 0RF doxycycline hyclate 100 mg capsule 100 mg PO BID Qty: 20 0RF Continued calcium carbonate-vitamin D2 600 mg calcium- 200 unit Tablet 1 tab PO DAILY Hold Instructions: Resume on 09/11/21. Please do not take your calcium supplement with your doxycycline as this will decrease the effectiveness of anti biotic. ondansetron HCl 4 mg Tablet 4 mg PO ONCE eribulin 1 mg/2 mL (0.5 mg/mL) Solution 1.7 mg IV QWEEK Rx Instructions: 2 weeks on, 1 week off. denosumab 120 mg/1.7 mL (70 mg/mL) Solution 120 mg SUBCUT [id number] Discharge Instructions Instructions: Lyme Disease (GEN), Fever in Adults (ED), Acute Nausea and Vomiting (DC), Neutropenia (DC) Additional Instructions: follow up with oncology as soon as possible. Stand Alone Forms: Nursing Discharge Form Referrals: Beryl Coronado [Primary Care Provider] - (Your doctor will call you with an appointment ) Activity:: Activity as Tolerated Equipment/Supplies:: No Equipment Needed Diet:: As Tolerated Discharge Orders Discharge Orders: Discharge Order (Routine); Ordered 01/10/22 Ordered By: Sherly Ramos Discharge Data Discharge Date/Time-TO BE ENTERED AT DEPARTURE: 01/10/22 13:42 DS: Summary Time Spent with Patient providing and/or coordinating discharge services: Less than 30 minutes Status at Discharge Functional status at discharge: independent ambulation Overall status at discharge: patient is progressing back to baseline Mental Status: mental status grossly normal Speech and Movement: speech and movement normal Mood: congruent mood Affect: normal affect Exam Const General: cooperative, no acute distress, frail appearing and ill appearing chronically Nutritional Appearance: thin HENMT Head: normal to inspection (hair loss from chemo) Mouth: moist mucous membranes abnormal (slightly dry, no exudate) Eyes Conjunctivae: normal conjunctivae Sclera: normal sclerae EOM: EOM intact bilaterally Neck Neck: full ROM and no meningeal signs Chest Chest: other (mediport accessed.) Breast inspection: abnormal inspection of the breast Resp Auscultation: clear to auscultation bilaterally and diminished lung sounds (bases) bilaterally Cardio Rate: regular rate Rhythm: regular rhythm Heart Sounds: murmur GI Palpation: soft, not firm, no guarding, no masses, not rigid and nontender Skin General skin exam: no rashes or lesions noted Neuro General: patient alert, patient awake, patient oriented x3 and tone normal Cognition: normal cognition Extrem General: normal to inspection and no edema Psych Appearance: grossly normal Mental Status: mental status grossly normal Speech and Movement: speech and movement normal Mood: congruent mood Affect: normal affect DS: Data Vitals/I&O Vitals and I&O: Vital Signs Temperature 37.2 C 01/10/22 07:57 Temperature Source Tympanic 01/10/22 07:57 Pulse 64 01/10/22 07:57 Pulse Rhythm Regular 01/10/22 07:32 Respiratory Rate 18 01/10/22 07:57 Respiratory Effort 01/10/22 07:32 Respiratory Depth Normal 01/10/22 07:32 Respiratory Pattern Normal 01/10/22 07:32 Blood Pressure 109/67 01/10/22 07:57 Blood Pressure Mean 80 01/08/22 22:00 Blood Pressure Position Supine 01/08/22 22:00 Pulse Oximetry 96 01/10/22 07:57 Oxygen Delivery Method Room Air 01/10/22 07:57 Oxygen Flow Rate 0 01/10/22 07:57 Pain Level 7 01/10/22 07:31 Intake & Output 01/09/22 01/09/22 01/10/22 11:59 23:59 11:59 Intake Total 1800 / 2051 251 / 2051 1170 / 1170 Output Total 1300 / 1300 900 / 900 Balance 1800 / 751 -1049 / 751 270 / 270 Weight 55.792 kg Intake: IV 1800 / 1 251 / 2051 820 / 820 Oral 350 / 350 Output: Urine 1300 / 1300 900 / 900 Other: Urine Color Yellow Light Mel Urine Appearance Clear Clear Urine Odor None Data Completed and Pending Labs on day of discharge: Labs from last 24 hours 01/10/22 01/10/22 01/10/22 13:00 10:00 10:00 WBC 1.65 L* RBC 3.16 L Hgb 9.4 L Hct 26.8 L MCV 85 MCH 29.7 MCHC 35.1 RDW 14.2 Plt Count 135 MPV 9.5 Immature Gran % 1.8 Neutrophils % 51.0 Lymphocytes % 34.5 Monocytes % 10.9 Eosinophils % 0.0 Basophils % 1.8 Nucleated RBC % 0.0 Absolute Neutrophils 0.84 L Absolute Lymphocytes 0.57 L Absolute Monocytes 0.18 Absolute Eosinophils 0.00 Absolute Basophils 0.03 RBC Morphology See Below Hypochromasia 1+ Sodium 133 L Potassium 3.4 L Chloride 100 Carbon Dioxide 28.3 Anion Gap 4.7 BUN 12 Creatinine 0.4 L Estimated GFR/1.73 m2 >= 60.00 Glucose 97 Calcium 8.0 L Vancomycin Trough Pending Preliminary micro results at discharge 01/08/22 23:32 Blood Culture - Preliminary Blood NO GROWTH 24 HOURS 01/08/22 23:19 Blood Culture - Preliminary Blood NO GROWTH 24 HOURS 01/08/22 20:05 Blood Culture - Preliminary Blood NO GROWTH 24 HOURS 01/08/22 20:05 Blood Culture - Preliminary Blood NO GROWTH 24 HOURS PFSH All Active Problems Chemotherapy adverse reaction (Acute) Metastatic breast cancer (Acute) Acute febrile illness (Acute) Cardiac murmur (Acute) Hyponatremia (Acute) Medical History Metastatic breast cancer Surgical History H/O left mastectomy History of hysterectomy History of knee replacement Social History Smoking/Tobacco Use Status: Never Smoking risk assessment performed?: Yes Alcohol Intake: never Drug use: Daily Substance use type: marijuana Details: Medical Marijuana used at night to help with sleep Do you feel safe at home: Yes Do you feel safe in your relationship?: Yes
--- NOTE | 2022-01-10 11:58 | CHAPLAIN ---
Joanna Garcia was resting in bed when I visited. She said she'd just had some medicine, so her train of thought was not good. A few times during the conversation, she'd stop, not remembering what she was going to say next. She is very pleasant and spoke about her children and grandchildren. They have a family dinner at her home every Saturday. Her daughter will be visiting today. Joanna Garcia lives with her in [place], but prefers to get her care here. A son lives close by and another son lives in [place] Joanna Garcia is being treated for cancer and came in for pain control. She will likely be discharged today.
[2022-01-10] MEDS: Potassium Chloride Liquid 20 MEQ PKT 40 MEQ PO (12:00)
[2022-01-10 12:02] LABS: Source Nasal/Nares
[2022-01-10 12:54] LABS: COVID-19 PCR Negative (Negative)
[2022-01-10 13:14] LABS: Lyme IgG Ab Negative (Negative); Lyme IgM Ab Negative (Negative)
[2022-01-10] MEDS: Heparin 500 UNITS/5 ML SYRINGE IVP (13:35)
--- NOTE | 2022-01-10 17:57 | PDOC.CMDIS ---
- If Service Date Differs Date of service: 01/10/22 Time of Service: 17:57 LACE Index Scoring Tool - Questions: Length of Stay (in days): 1 Acuity (Admit via E.D.?): Yes Comorbidities: Metastatic Solid Tumor E.D. Visits: 3 - Answers: Total Score: 12 Risk of Readmission: High Risk Care Management Discharge Reason for Hospitalization: Fever; unmanageable pain related to Stage 4 CA Discharge Plan: Tin returned home today with no new services. Her drove her home via private vehicle. She will follow up with her PCP and discharge plan of care. Patient/Family Education Needs: Review discharge instructions and limitations, discussion of self care needs including ask me three.
[2022-01-12 10:10] LABS: Anaplasma phagocytophilum Negative (Negative); B. miyamotoi PCR Negative (Negative); Babesia divergens/MO-1 Negative (Negative); Babesia duncani Negative (Negative); Babesia microti Negative (Negative); Ehrlichia chaffeensis Negative (Negative); Ehrlichia ewingii/canis Negative (Negative); Ehrlichia muris eauclairensis Negative (Negative)
== END 2022-01-10 13:42 | disposition home or self-care (01) ==
LOC: ER 01-09 00:59 → MS 01-09 01:15
PROVIDERS: Nurse Practitioner Acute Care; Admitting Provider General Practice; Emergency Provider Student in an Organized Health Care Education/Training Program; PCP Internal Medicine; Visit Provider General Practice
DX: A69.20 Lyme disease, unspecified (principal); R50.9 Fever, unspecified; M79.18 Myalgia, other site; R51.9 Headache, unspecified; C79.51 Secondary malignant neoplasm of bone; R63.0 Anorexia; R01.1 Cardiac murmur, unspecified; G89.3 Neoplasm related pain (acute) (chronic); E87.1 Hypo-osmolality and hyponatremia; Z85.3 Personal history of malignant neoplasm of breast; Z90.12 Acquired absence of left breast and nipple; K59.03 Drug induced constipation; T40.2X5A Adverse effect of other opioids, initial encounter; Z79.899 Other long term (current) drug therapy; Z20.822 Contact with and (suspected) exposure to COVID-19
CPT/HCPCS: 80048; 80053; 82550; 86617; 87040; 87449; 87635; 87798; 93005; 96361; 96365; 96366; 96367; 96374; 96375; 96376; 99285; 71045; 80202; 81003; 83605; 83735; 84484; 85025; 86618; 93010; 93306; 99217; 99219; 99222; G0378; J0696; J1170; J2405

== ENCOUNTER 2022-02-22 02:35 | Outpatient (RCR) | payer BC, SELFPAY ==
[2022-02-01] MEDS: Normal Saline Flush 10 ML SYR IVP (13:15)
[2022-02-01 13:23] LABS: Abs Immature Grans 0.01 10^3/uL (0.0-0.06); Absolute Basophil Count 0.03 10^3/uL (0.0-0.2); Absolute Eosinophil Count 0.07 10^3/uL (0.0-0.7); Absolute Lymphocyte Count 1.14 10^3/uL (1.2-3.4); Absolute Monocyte Count 0.46 10^3/uL (0.1-0.8); Absolute Neutrophil Count 3.15 10^3/uL (1.2-6.7); Basophils % 0.6; Eosinophils % 1.4; HCT 32.5 % (36.0-46.0); HGB 10.9 g/dL (11.2-15.7); Immature Grans % 0.2; Lymphocytes % 23.5; MCH 29.5 pg (27.0-33.0); MCHC 33.5 % (32.0-36.0); MCV 88 fL (80-95); Monocytes % 9.5; Neutrophils % 64.8; Platelet Count 180 10^3/uL (130-400); RBC 3.69 10^6/uL (3.93-5.22); RDW 14.6 % (11.7-14.6); RDW-SD 46.8 fL; WBC 4.86 10^3/uL (4.4-10.8)
[2022-02-01 13:32] LABS: ALT 26 U/L (14-59); AST 35 U/L (15-37); Albumin 3.6 g/dL (3.4-5.0); Alkaline Phosphatase 54 U/L (46-116); Anion Gap 5.1 mmol/L (3-11); BUN 17 mg/dL (7-18); Bilirubin, Total 0.6 mg/dL (0.2-1.0); CO2 27.9 mmol/L (21.0-32.0); CREATININE 0.4 mg/dL (0.55-1.02); Chloride 99 mmol/L (98-107); Glucose 96 mg/dL (74-106); Sodium 132 mmol/L (136-145); Total Protein 7.3 g/dL (6.4-8.2)
[2022-02-02 11:49] LABS: Cancer Ag 15-3 53 U/mL (<30)
[2022-02-08] MEDS: Normal Saline Flush 10 ML SYR IVP (08:41)
[2022-02-08 08:49] LABS: Abs Immature Grans 0.09 10^3/uL (0.0-0.06); Absolute Basophil Count 0.06 10^3/uL (0.0-0.2); Absolute Eosinophil Count 0.04 10^3/uL (0.0-0.7); Absolute Lymphocyte Count 0.97 10^3/uL (1.2-3.4); Absolute Monocyte Count 0.17 10^3/uL (0.1-0.8); Absolute Neutrophil Count 1.04 10^3/uL (1.2-6.7); Basophils % 2.5; Eosinophils % 1.7; HCT 31.1 % (36.0-46.0); HGB 10.5 g/dL (11.2-15.7); Immature Grans % 3.8; Lymphocytes % 40.9; MCH 29.6 pg (27.0-33.0); MCHC 33.8 % (32.0-36.0); MCV 88 fL (80-95); MPV 9.3 fL (8.0-11.0); Monocytes % 7.2; Neutrophils % 43.9; Platelet Count 184 10^3/uL (130-400); RBC 3.55 10^6/uL (3.93-5.22); RDW 14.4 % (11.7-14.6); RDW-SD 46.4 fL; WBC 2.37 10^3/uL (4.4-10.8)
[2022-02-08 09:18] LABS: ALT 30 U/L (14-59); AST 44 U/L (15-37); Albumin 3.6 g/dL (3.4-5.0); Alkaline Phosphatase 58 U/L (46-116); Anion Gap 7.7 mmol/L (3-11); BUN 13 mg/dL (7-18); Bilirubin, Total 0.6 mg/dL (0.2-1.0); CO2 27.3 mmol/L (21.0-32.0); CREATININE 0.4 mg/dL (0.55-1.02); Chloride 98 mmol/L (98-107); Glucose 95 mg/dL (74-106); Magnesium 1.9 mg/dL (1.8-2.4); Potassium 4.2 mmol/L (3.5-5.1); Sodium 133 mmol/L (136-145); Total Protein 7.2 g/dL (6.4-8.2)
[2022-02-22] MEDS: Normal Saline Flush 10 ML SYR IVP (08:41)
[2022-02-22 08:52] LABS: Abs Immature Grans 0.01 10^3/uL (0.0-0.06); Absolute Basophil Count 0.03 10^3/uL (0.0-0.2); Absolute Eosinophil Count 0.01 10^3/uL (0.0-0.7); Absolute Lymphocyte Count 0.99 10^3/uL (1.2-3.4); Absolute Monocyte Count 0.59 10^3/uL (0.1-0.8); Absolute Neutrophil Count 1.95 10^3/uL (1.2-6.7); Basophils % 0.8; Eosinophils % 0.3; HCT 31.7 % (36.0-46.0); HGB 10.7 g/dL (11.2-15.7); Immature Grans % 0.3; Lymphocytes % 27.7; MCH 30.1 pg (27.0-33.0); MCHC 33.8 % (32.0-36.0); MCV 89 fL (80-95); MPV 8.9 fL (8.0-11.0); Monocytes % 16.5; Neutrophils % 54.4; Platelet Count 218 10^3/uL (130-400); RBC 3.56 10^6/uL (3.93-5.22); RDW 14.6 % (11.7-14.6); RDW-SD 47.1 fL; WBC 3.58 10^3/uL (4.4-10.8)
[2022-02-22 09:12] LABS: ALT 25 U/L (14-59); AST 39 U/L (15-37); Albumin 3.4 g/dL (3.4-5.0); Alkaline Phosphatase 63 U/L (46-116); Anion Gap 6.2 mmol/L (3-11); BUN 18 mg/dL (7-18); Bilirubin, Total 0.5 mg/dL (0.2-1.0); CO2 28.8 mmol/L (21.0-32.0); CREATININE 0.5 mg/dL (0.55-1.02); Chloride 101 mmol/L (98-107); Glucose 107 mg/dL (74-106); Magnesium 1.9 mg/dL (1.8-2.4); Sodium 136 mmol/L (136-145); Total Protein 7.4 g/dL (6.4-8.2)
[2022-02-23 16:38] LABS: Cancer Ag 15-3 70 U/mL (<30)
== END 2022-02-28 23:59 | disposition home or self-care (01) ==
LOC: INF 02:35
PROVIDERS: Internal Medicine Hematology & Oncology; PCP Internal Medicine; Visit Provider Internal Medicine Hematology & Oncology
DX: Z45.2 Encounter for adjustment and management of vascular access device (principal); C50.412 Malignant neoplasm of upper-outer quadrant of left female breast; Z17.0 Estrogen receptor positive status [ER+]; C79.51 Secondary malignant neoplasm of bone; C78.7 Secondary malignant neoplasm of liver and intrahepatic bile duct
CPT/HCPCS: 36591; 80053; 86304; 83735; 85025; 86300

== ENCOUNTER 2022-03-29 03:51 | Outpatient (RCR) | payer BC, SELFPAY ==
[2022-03-01] MEDS: Normal Saline Flush 10 ML SYR IVP (08:37)
[2022-03-01 08:51] LABS: Abs Immature Grans 0.25 10^3/uL (0.0-0.06); HCT 30.9 % (36.0-46.0); HGB 10.8 g/dL (11.2-15.7); MCH 30.2 pg (27.0-33.0); MCV 86 fL (80-95); MPV 9.5 fL (8.0-11.0); Platelet Count 182 10^3/uL (130-400); RBC 3.58 10^6/uL (3.93-5.22); RDW 14.2 % (11.7-14.6); RDW-SD 44.1 fL; WBC 3.12 10^3/uL (4.4-10.8)
[2022-03-01 09:04] LABS: ALT 28 U/L (14-59); AST 53 U/L (15-37); Albumin 3.4 g/dL (3.4-5.0); Alkaline Phosphatase 76 U/L (46-116); Anion Gap 6.5 mmol/L (3-11); BUN 13 mg/dL (7-18); Bilirubin, Total 0.5 mg/dL (0.2-1.0); CO2 27.5 mmol/L (21.0-32.0); CREATININE 0.6 mg/dL (0.55-1.02); Calcium 8.8 mg/dL (8.5-10.1); Chloride 101 mmol/L (98-107); Estimated GFR 100.17 (mL/min/1.73m2); Glucose 120 mg/dL (74-106); Potassium 3.6 mmol/L (3.5-5.1); Sodium 135 mmol/L (136-145); Total Protein 7.2 g/dL (6.4-8.2)
[2022-03-01 09:28] LABS: Absolute Basophil Count 0.09 10^3/uL (0.0-0.2); Absolute Eosinophil Count 0.03 10^3/uL (0.0-0.7); Absolute Monocyte Count 0.19 10^3/uL (0.1-0.8); Absolute Neutrophil Count 1.87 10^3/uL (1.2-6.7); Diff Comment Manual Differential; Metamyelocytes % 1; RBC Morphology Normal
[2022-03-15] MEDS: Normal Saline Flush 10 ML SYR IVP (11:12)
[2022-03-15 11:28] LABS: Abs Immature Grans 0.03 10^3/uL (0.0-0.06); Absolute Basophil Count 0.04 10^3/uL (0.0-0.2); Absolute Eosinophil Count 0.03 10^3/uL (0.0-0.7); Absolute Lymphocyte Count 1.24 10^3/uL (1.2-3.4); Absolute Monocyte Count 0.97 10^3/uL (0.1-0.8); Absolute Neutrophil Count 3.01 10^3/uL (1.2-6.7); Basophils % 0.8; Eosinophils % 0.6; HCT 32.4 % (36.0-46.0); Immature Grans % 0.6; Lymphocytes % 23.3; MCH 30.1 pg (27.0-33.0); MCV 89 fL (80-95); MPV 9.4 fL (8.0-11.0); Monocytes % 18.2; Neutrophils % 56.5; Platelet Count 233 10^3/uL (130-400); RBC 3.65 10^6/uL (3.93-5.22); RDW 14.6 % (11.7-14.6); RDW-SD 47.5 fL; WBC 5.32 10^3/uL (4.4-10.8)
[2022-03-15 12:01] LABS: ALT 36 U/L (14-59); AST 65 U/L (15-37); Albumin 3.5 g/dL (3.4-5.0); Alkaline Phosphatase 96 U/L (46-116); BUN 18 mg/dL (7-18); Bilirubin, Total 0.6 mg/dL (0.2-1.0); CREATININE 0.5 mg/dL (0.55-1.02); Calcium 9.5 mg/dL (8.5-10.1); Chloride 98 mmol/L (98-107); Estimated GFR 104.67 (mL/min/1.73m2); Glucose 95 mg/dL (74-106); Potassium 4.2 mmol/L (3.5-5.1); Sodium 133 mmol/L (136-145); Total Protein 7.7 g/dL (6.4-8.2)
[2022-03-16 14:05] LABS: Cancer Ag 15-3 124 U/mL (<30)
[2022-03-29] MEDS: Normal Saline Flush 10 ML SYR IVP (12:21)
[2022-03-29 12:31] LABS: Abs Immature Grans 0.03 10^3/uL (0.0-0.06); Absolute Basophil Count 0.03 10^3/uL (0.0-0.2); Absolute Eosinophil Count 0.03 10^3/uL (0.0-0.7); Absolute Lymphocyte Count 0.91 10^3/uL (1.2-3.4); Absolute Monocyte Count 0.72 10^3/uL (0.1-0.8); Absolute Neutrophil Count 1.37 10^3/uL (1.2-6.7); HCT 32.7 % (36.0-46.0); HGB 10.9 g/dL (11.2-15.7); Lymphocytes % 29.4; MCH 29.8 pg (27.0-33.0); MCHC 33.3 % (32.0-36.0); MCV 89 fL (80-95); MPV 9.6 fL (8.0-11.0); Monocytes % 23.3; Neutrophils % 44.3; Platelet Count 232 10^3/uL (130-400); RBC 3.66 10^6/uL (3.93-5.22); RDW 14.3 % (11.7-14.6); RDW-SD 46.3 fL; WBC 3.09 10^3/uL (4.4-10.8)
[2022-03-29 12:45] LABS: ALT 41 U/L (14-59); AST 85 U/L (15-37); Albumin 3.5 g/dL (3.4-5.0); Alkaline Phosphatase 157 U/L (46-116); Anion Gap 8.1 mmol/L (3-11); BUN 14 mg/dL (7-18); Bilirubin, Total 0.5 mg/dL (0.2-1.0); CO2 25.9 mmol/L (21.0-32.0); CREATININE 0.6 mg/dL (0.55-1.02); Chloride 99 mmol/L (98-107); Estimated GFR 100.17 (mL/min/1.73m2); Glucose 96 mg/dL (74-106); Sodium 133 mmol/L (136-145); Total Protein 7.6 g/dL (6.4-8.2)
[2022-03-30 15:59] LABS: Cancer Ag 15-3 171 U/mL (<30)
== END 2022-03-30 23:59 | disposition home or self-care (01) ==
LOC: INF 03:51
PROVIDERS: Internal Medicine Hematology & Oncology; PCP Internal Medicine; Visit Provider Internal Medicine Hematology & Oncology
DX: C50.412 Malignant neoplasm of upper-outer quadrant of left female breast (principal); Z17.0 Estrogen receptor positive status [ER+]; C79.51 Secondary malignant neoplasm of bone; Z45.2 Encounter for adjustment and management of vascular access device
CPT/HCPCS: 36591; 80053; 86304; 83735; 85025; 86300

== ENCOUNTER 2022-04-05 02:17 | Outpatient (RCR) | payer BC, SELFPAY ==
[2022-04-05] MEDS: Normal Saline Flush 10 ML SYR IVP (09:12)
[2022-04-05 09:24] LABS: Abs Immature Grans 0.03 10^3/uL (0.0-0.06); Absolute Basophil Count 0.04 10^3/uL (0.0-0.2); Absolute Eosinophil Count 0.02 10^3/uL (0.0-0.7); Absolute Monocyte Count 0.21 10^3/uL (0.1-0.8); Absolute Neutrophil Count 2.85 10^3/uL (1.2-6.7); Eosinophils % 0.5; HCT 33.3 % (36.0-46.0); HGB 10.9 g/dL (11.2-15.7); Immature Grans % 0.7; Lymphocytes % 24.1; MCH 29.2 pg (27.0-33.0); MCHC 32.7 % (32.0-36.0); MCV 89 fL (80-95); MPV 10.2 fL (8.0-11.0); Monocytes % 5.1; Neutrophils % 68.6; Platelet Count 174 10^3/uL (130-400); RBC 3.73 10^6/uL (3.93-5.22); RDW 14.1 % (11.7-14.6); RDW-SD 45.7 fL; WBC 4.15 10^3/uL (4.4-10.8)
[2022-04-05 09:41] LABS: ALT 65 U/L (14-59); AST 113 U/L (15-37); Albumin 3.3 g/dL (3.4-5.0); Alkaline Phosphatase 213 U/L (46-116); Anion Gap 7.8 mmol/L (3-11); BUN 14 mg/dL (7-18); Bilirubin, Total 0.6 mg/dL (0.2-1.0); CO2 26.2 mmol/L (21.0-32.0); CREATININE 0.6 mg/dL (0.55-1.02); Calcium 9.7 mg/dL (8.5-10.1); Chloride 100 mmol/L (98-107); Estimated GFR 100.17 (mL/min/1.73m2); Glucose 97 mg/dL (74-106); Potassium 4.1 mmol/L (3.5-5.1); Sodium 134 mmol/L (136-145); Total Protein 7.3 g/dL (6.4-8.2)
[2022-04-06 14:22] LABS: Cancer Ag 15-3 244 U/mL (<30)
== END 2022-04-30 23:59 | disposition home or self-care (01) ==
LOC: INF 02:17
PROVIDERS: Internal Medicine Hematology & Oncology; PCP Internal Medicine; Visit Provider Internal Medicine Hematology & Oncology
DX: Z45.2 Encounter for adjustment and management of vascular access device (principal); C50.412 Malignant neoplasm of upper-outer quadrant of left female breast; Z17.0 Estrogen receptor positive status [ER+]; C79.51 Secondary malignant neoplasm of bone
CPT/HCPCS: 36591; 80053; 86304; 85025; 86300